=== PATIENT | female | born 1940 | race Caucasian/White ===

== ENCOUNTER 2017-12-10 21:31 | Emergency (ER) | payer OTHER ==
[~2017-12-10] VITALS: Ht 162.6 cm; Wt 63.0 kg
--- OUTSIDE RECORDS SUMMARY | 2017-12-10 21:33 | XMS REPORT | Clinical Summary ---
Author Author [facility] [facility] Address Unknown Phone Unavailable Care Team Providers Care Vegetable Cutter Name Role Phone Asked, Pcp PCP Unavailable Allergies Active Allergy Reactions Severity Noted Date Comments Codeine Hives 2017 Levofloxacin Other (See Comments) 2017 Severe Tendinitis Current Medications Prescription Sig. Disp. Refills Start End Date Status Date cefpodoxime (VANTIN) 200 Take 1 tablet (200 mg 20 tablet 0 09/20/19 09/30/19 MG tablet total) by mouth 2 (two) 18 18 times a day for 10 days. ibuprofen (ADVIL,MOTRIN) Take 1 tablet (600 mg 60 tablet 0 09/20/19 10/20/19 600 MG tablet total) by mouth every 6 18 18 (six) hours as needed for mild pain for up to 30 days. Active Problems Not on file Encounters Date Type Specialty Care Team Description 2017 Emergency Emergency Medicine Jose Ortega MD UTI ( urinary tract infection), bacterial (Primary Dx); Sprain of collateral ligament of right knee, sequela after 12/09/2016 Social History Tobacco Use Types Packs/Day Years Used Date Never Smoker Smokeless Tobacco: Never Used Alcohol Use Drinks/Week oz/Week Comments No Sex Assigned at Date Recorded Not on file Last Filed Vital Signs Vital Sign Reading Time Taken Blood Pressure 188/81 2017 2:40 AM EVENT PLANNER Pulse 79 2017 2:40 AM EVENT PL[facility]NER Temperature 35.7 C (96.2 F) 2017 2:40 AM EVENT PLANNER Respiratory Rate 18 2017 2:40 AM EVENT PLANNER Oxygen Saturation 96% 2017 2:40 AM EVENT PLANNER Inhaled Oxygen - - Concentration Weight - - Height 167.6 cm (5' 6") 2017 1:21 AM EVENT PLANNER Body Mass Index - - Plan of Treatment Health Maintenance Due Date Last Done Comments ZOSTER VACCINE 2000 PNEUMOCOCCAL 2005 POLYSACCHARIDE VACCINE AGE 65 AND OVER PNEUMOCOCCAL-13 2005 INFLUENZA VACCINE 03/30/2018 Results * XR Knee 3 Vw Right (2017 2:10 AM) Specimen Performing Laboratory [facility] [address] [place] [address] Narrative XR KNEE 3 VW RIGHT CLINICAL INDICATION:JOINT PAINKNEE COMPARISON:None. IMPRESSION: Is no acute fracture or dislocation. There is no knee joint effusion. The bones are demineralized. There is chondrocalcinosis and mild osteoarthrosis of the knee. [facility]-[id number] Procedure Note Hm Interface, Radiology Results Incoming - 2017 2:16 AM EVENT PLANNER XR KNEE 3 VW RIGHT CLINICAL INDICATION: JOINT PAIN KNEE COMPARISON: None. IMPRESSION: Is no acute fracture or dislocation. There is no knee joint effusion. The bones are demineralized. There is chondrocalcinosis and mild osteoarthrosis of the knee. [facility]-[id number] * Urinalysis (2017 1:28 AM) Component Value Ref Range Glucose, UA Trace (A) Negative Bilirubin, UA Strong Pos (A) Negative Ketones, UA 2+ (A) Negative Specific gravity, UA =<1.005 1.001 - 1.035 Blood, UA Large (A) Negative pH, UA 8.5 5.0 - 8.5 Protein, UA 3+ (A) Negative Urobilinogen, UA 4.0 (A) <2.0 Nitrite, UA Negative Negative Leukocyte esterase, UA Large (A) Negative Color, UA Red Appearance, UA Cloudy Specimen Performing Laboratory Urine [facility], [address] [address] * Gram stain (2017 1:28 AM) Component Value Ref Range Gram stain result Moderate WBC's No organisms seen Comment: Specimen Information Specimen Source: Urine Specimen Site: Urine, clean catch Specimen Performing Laboratory Urine - Urine, clean [facility] catch [address] [place] [address] * Urine culture (2017 1:28 AM) Component Value Ref Range Urine culture isolate Gram negative rods 10-2 cfu/ml (A) Comment: Specimen Information Specimen Source: Urine Specimen Site: Urine, clean catch Specimen Performing Laboratory Urine - Urine, clean [facility]OM[facility] catch [address] [place] [address] after 12/09/2016 Insurance Payer Benefit Subscriber ID Type Phone Address Plan / Group [employer]HC MEDICARE [employer] xxxxxxxxx [place] [address]
[2017-12-10 22:13] VITALS: BP 185/84
== END 2017-12-10 22:10 | disposition home or self-care (01) ==
LOC: FSED 21:31
DX: R30.0 Dysuria (principal); N30.91 Cystitis, unspecified with hematuria; I10 Essential (primary) hypertension
CPT/HCPCS: 81003; 99282

== ENCOUNTER 2018-05-07 07:04 | Emergency (ER) | payer MEDICARE, OTHER ==
[~2018-05-07] VITALS: Ht 162.6 cm; Wt 65.8 kg
[2018-05-07] MEDS ORDERED: MORPHINE SULFATE INJ 4 MG/ML INJ IM ONE (07:30)
[2018-05-07 08:33] VITALS: BP 180/80
== END 2018-05-07 08:00 | disposition home or self-care (01) ==
LOC: FSED 07:04
DX: M54.42 Lumbago with sciatica, left side (principal); S39.012A Strain of muscle, fascia and tendon of lower back, initial encounter
CPT/HCPCS: 99282; J2270

== ENCOUNTER 2019-01-29 13:05 | Emergency (ER) | payer MEDICARE ==
[~2019-01-29] VITALS: Ht 162.6 cm; Wt 68.9 kg
--- OUTSIDE RECORDS SUMMARY | 2019-01-29 13:08 | XMS REPORT | Clinical Summary ---
Author Author [facility] Address Unknown Phone Unavailable Care Team Providers Care Retail Shift Leader Name Role Phone Asked, No Pcp PCP Unavailable Allergies Comments Active Allergy Reactions Severity Noted Date Codeine Hives 2017 Severe Tendinitis Levofloxacin Other (See 2017 Comments) Medications No known medications Active Problems Problem Noted Date Combined forms of age-related cataract of both eyes 06/08/2018 Encounters Care Team Description Date Type Specialty Center, Ophthalmology - Clinical Care 06/28/2018 Telephone Ophthalmology DelarosaAngella MD Combined forms of age-related cataract of both eyes (Primary Dx) 06/08/2018 Office Visit Ophthalmology after 01/28/2018 Social History Date Tobacco Use Types Packs/Day Years Used Never Smoker Smokeless Tobacco: Never Used Alcohol Use Drinks/Week oz/Week Comments No Sex Assigned at Date Recorded Not on file Industry Job Start Date Occupation Not on file Not on file Not on file Travel End Travel History Travel Start No recent travel history available. Last Filed Vital Signs Not on file Plan of Treatment Health Maintenance Due Date Last Done Comments SHINGLES VACCINES (#1) 1990 65+ PNEUMOCOCCAL VACCINE 2005 (1 of 2 - PCV13) PNEUMOCOCCAL 2005 POLYSACCHARIDE VACCINE AGE 65 AND OVER INFLUENZA VACCINE 03/30/2019 Results Not on fileafter 01/28/2018 Insurance Type Payer Benefit Subscriber ID Effective Phone Address Plan / Dates Group HMO [facility] MEDICARE [facility] xxxxxxxxx 2017-P MEDICARE resent HMO/PPO Advance Directives Patient has advance care planning documents on file. For more information, juani khan contact: Emil Spear [address] [place] [address]
--- OUTSIDE RECORDS SUMMARY | 2019-01-29 13:09 | XMS REPORT ---
Author Author Anita Rob [facility] [employer] Address Unknown Phone Unavailable Care Team Providers Care Manager Cosmetic Name Role Phone Anita Rob Unavailable Encounters Encounter Location Date echo results [facility] February 28, 2016 RF [facility] Aug 27, 2016 RF [facility] Aug 27, 2016 REFILL [facility] Oct 09, 2016 uti [facility] February 06, 2016 Unknown [facility] February 07, 2016 ECHO-IZAIAH [facility] February 07, 2016 Problems Problem Type Condition ICD-9 Code Onset Dates Condition Status Problem Achilles tendonitis M76.60 Active Assessment Essential hypertension I10 Active Problem Vitamin D deficiency E55.9 Active Problem Essential hypertension I10 Active Problem Rosacea L71.9 Active Problem Prediabetes R73.09 Active Problem Hx of deep venous thrombosis Z86.718 Active Problem Hyperlipidemia, unspecified E78.5 Active Problem Osteoarthrosis M19.90 Active Medications Medication Code System Code Instructions Start Date End Date Status D[facility] [address]-95 20 mg by mouth once a day (MUST SEE DOCTOR BEFORE NEXT REFILL) Active 1 tablet Social History Social History Element Qualifiers Date 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 . with spouse and brother February 28, 2016 Last Colonoscopy: . 20 years ago February 28, 2016 children . 3 February 28, 2016 Flu Vaccine: . 2014February 28, 2016 Tobacco Use: . Are you a: never smoker February 28, 2016 Use of recreational / street drugs? . Answer: No February 28, 2016 Ethnicity . Status , Is djiboutian your primary language? Yes February 28, 2016 Last Bone Density: . 2013February 28, 2016 Marital Status: . February 28, 2016 Caffeine intake? . Status: Yes, What type: Coffee February 28, 2016 Do you exercise? . Answer: Yes, Type: walking February 28, 2016 Depression Screening: . negative February 28, 2016 Fall Risk: . none in the past year February 28, 2016 Do you drink alcohol? . Status: No February 28, 2016 Summary Purpose eClinicalWorks Submission
--- OUTSIDE RECORDS SUMMARY | 2019-01-29 13:09 | XMS REPORT ---
Author Author Joyce Gomez [employer] Address Unknown Phone Unavailable Care Team Providers Care Lumber Tripper Name Role Phone Joyce Gomez Unavailable Allergies, Adverse Reactions, Alerts Substance Reaction Event Type shellfish Info Not Available Drug Allergy Iodine Info Not Available Drug Allergy Codeine Sulfate Info Not Available Drug Allergy Encounters Encounter Location Date uti [facility] February 06, 2016 Unknown [facility] February 07, 2016 Problems Problem Type Condition ICD-9 Code Onset Dates Condition Status Assessment Prediabetes R73.09 Active Problem Achilles tendonitis M76.60 Active Assessment Essential hypertension I10 Active Problem Vitamin D deficiency E55.9 Active Problem Essential hypertension I10 Active Problem Rosacea L71.9 Active Problem Prediabetes R73.09 Active Problem Hx of deep venous thrombosis Z86.718 Active Problem Hyperlipidemia, unspecified E78.5 Active Problem Osteoarthrosis M19.90 Active Assessment Abnormal EKG R94.31 Active Assessment Urinary tract infection N39.0 Active Assessment Frequent urination R35.0 Active Assessment Hyperlipidemia, unspecified E78.5 Active Medications Medication Code System Code Instructions Start Date End Date Status Dosage Bactrim DS [facility] [address]-36 800-160 MG Orally twice a day February 06, 2016 February 11, 2016 Active 1 tablet Zyrtec Allergy [facility] [address]-85 10 MG Orally Once a day Active 1 tablet Naproxen Sodium [facility] [address]-59 550 MG Orally Twice a day sparingly February 01, 2014 Active 1 tablet Pravastatin Sodium [facility] [address]-46 40 mg Orally Once a day Active 1 tablet Lisinopril [facility] [address]-25 20 mg by mouth once a day Active 1 tablet Social History Social History Element Qualifiers Date 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 . with spouse and brother February 06, 2016 Last Colonoscopy: . 20 years ago February 06, 2016 children . 3 February 06, 2016 Flu Vaccine: . 2014February 06, 2016 Tobacco Use: . Are you a: never smoker February 06, 2016 Use of recreational / street drugs? . Answer: No February 06, 2016 Ethnicity . Status , Is yoruba your primary language? Yes February 06, 2016 Last Bone Density: . 2013February 06, 2016 Marital Status: . February 06, 2016 Caffeine intake? . Status: Yes, What type: Coffee February 06, 2016 Do you exercise? . Answer: Yes, Type: walking February 06, 2016 Depression Screening: . negative February 06, 2016 Fall Risk: . none in the past year February 06, 2016 Do you drink alcohol? . Status: No February 06, 2016 Vital Signs Date/Time: February 06, 2016 Weight 137 lbs Height 64 in Temperature 97.8 F Cardiac Monitoring Heart Rate 76 /min Blood Pressure Diastolic 70 mm Hg Blood Pressure Systolic 156 mm Hg Results URINE AUTO W/O SCOPE Summary Purpose eClinicalWorks Submission
--- OUTSIDE RECORDS SUMMARY | 2019-01-29 13:09 | XMS REPORT | Summary of Care ---
Author Organization Unknown Address Unknown Phone Unavailable Encounter [facility] Luisito(NINOSKA) [id number] Date(s): 01/18/14 - 01/18/14 [facility] [address] [place], [place] [address] - [facility] Discharge Diagnosis: Wrist sprain Discharge Disposition: Home Physician Attending: Tyrel Roth MD Physician_Referring: Vitro Sommers Reason for Visit LEFT ARM PAIN Vital Signs Most recent to 1 2 oldest [Reference Range]: Height 162.56 cm (01/18/14 6:36 AM) Temperature Oral 98.3 DegF [96.4-99.1 DegF] (01/18/14 6:36 AM) Systolic Blood 148 mmHg 153 mmHg Pressure [90-140 *HI* *HI* mmHg] (01/18/14 8:55 AM) (01/18/14 6:36 AM) Diastolic Blood 77 mmHg 80 mmHg Pressure [60-90 (01/18/14 8:55 AM) (01/18/14 6:36 AM) mmHg] Respiratory Rate 18 BRMIN 20 BRMIN [14-20 BRMIN] (01/18/14 8:55 AM) (01/18/14 6:36 AM) Peripheral Pulse 78 bpm 77 bpm Rate [60-100 bpm] (01/18/14 8:55 AM) (01/18/14 6:36 AM) Weight 65.909 kg (01/18/14 6:36 AM) Body Mass Index 24.94 m2 (01/18/14 6:36 AM) Problem List Condition Effective Dates Status Health Status Informant Achilles Resolved tendinitis(Confirmed ) Hyperlipidemia(Confi Resolved rmed) Hypertension(Confirm Resolved ed) Allergies, Adverse Reactions, Alerts Substance Reaction Severity Status codeine Active Medications lisinopril 20 mg oral tablet 20 mg=1 tab, PO, Daily, # 30 tab, 0 Refill(s) Start Date: 01/18/14 Status: Ordered naproxen 500 mg oral tablet 500 mg=1 tab, PO, BID, Pain, # 30 tab, 0 Refill(s) Start Date: 01/18/14 Status: Ordered pravastatin 40 mg oral tablet 40 mg=1 tab, PO, Bedtime, # 30 tab, 0 Refill(s) Start Date: 01/18/14 Status: Ordered Ultram 50 mg oral tablet 50 mg=1 tab, PO, Q4H, pain, # 20 tab, 0 Refill(s) Start Date: 01/18/14 Status: Ordered Medications Administered During Your Visit No data available for this section Immunizations No data available for this section Social History Social History Type Response Smoking Status Never smoker, Exposure to Tobacco Smoke None, Cigarette Smoking Last 365 Days No, Reg Smoking Cessation Counseling No
--- OUTSIDE RECORDS SUMMARY | 2019-01-29 13:09 | XMS REPORT | CCD ---
Author Author Auto Generated Organization [facility] Address Unknown Phone Unavailable Care Team Providers Care Billing Supervisor Name Role Phone Jarred Plunkett CP Allergies, Adverse Reactions, Alerts Substance Reaction Status codeine Active Problem List Condition Effective Dates Status Achilles tendinitis Resolved Hyperlipidemia Resolved Hypertension Resolved Medications Medication Instructions Start Date End Date Status Macrobid 100 mg oral 100 mg, 1 cap, PO, BID, 20 cap, 03/18/2013 03/28/2013 Ordered capsule Substitution Allowed, CAP Vital Signs Most recent to oldest [Reference Range]: 1 Height 162.56 cm (03/18/2013 11:20:00) Weight 63.636 kg (03/18/2013 11:20:00) Results URINALYSIS Most recent to oldest [Reference Range]: 1 UA Turbidity [Clear] Clear (03/18/2013 11:35:01) UA Color Ltyellow *NA* (03/18/2013 11:35:01) UA pH [5.0-8.0] 5.0 (03/18/2013 11:35:01) UA Spec Grav [<=1.030] 1.008 (03/18/2013 11:35:01) UA Glucose [Negative mg/dL] Negative mg/dL *NA* (03/18/2013 11:35:01) UA Blood [Negative] Small *ABN* (03/18/2013 11:35:01) UA Ketones [Negative mg/dL] Negative mg/dL *NA* (03/18/2013 11:35:01) UA Protein [Negative mg/dL] Negative mg/dL (03/18/2013 11:35:01) UA Urobilinogen [0.1-1.0 mg/dL] <=1.0 mg/dL *NA* (03/18/2013 11:35:01) UA Bili [Negative] Negative *NA* (03/18/2013 11:35:01) UA Leuk Est [Negative] Negative (03/18/2013 11:35:01) UA Nitrite [Negative] Negative (03/18/2013 11:35:01) UA WBC [0-5 /HPF] <1 /HPF (03/18/2013 11:35:01) UA RBC [0-2 /HPF] <1 /HPF (03/18/2013 11:35:01) UA Bacteria [None Seen /HPF] Occasional /HPF *NA* (03/18/2013 11:35:01) UA Sq Epi [Few /LPF] Occasional /LPF *NA* (03/18/2013 11:35:01)
--- OUTSIDE RECORDS SUMMARY | 2019-01-29 13:09 | XMS REPORT ---
Author Author Joyce Gomez eClinicalWorks Address Unknown Phone Unavailable Care Team Providers Care Electric Furnace Operator Name Role Phone Joyce Gomez Unavailable Encounters Encounter Location Date uti [facility] February 06, 2016 Unknown [facility] February 07, 2016 ECHO-JOYCE [facility] February 07, 2016 Problems Problem Type Condition ICD-9 Code Onset Dates Condition Status Problem Achilles tendonitis M76.60 Active Assessment Abnormal EKG R94.31 Active Problem Vitamin D deficiency E55.9 Active Problem Essential hypertension I10 Active Problem Rosacea L71.9 Active Problem Prediabetes R73.09 Active Problem Hx of deep venous thrombosis Z86.718 Active Problem Hyperlipidemia, unspecified E78.5 Active Problem Osteoarthrosis M19.90 Active Medications Medication Code System Code Instructions Start Date End Date Status Dosage Bactrim DS [facility] [address]-04 800-160 MG Orally twice a day February 06, 2016 February 11, 2016 Active 1 tablet [facility] [address]-19 40 mg Orally Once a day Active 1 tablet Naproxen Sodium [facility] [address]-07 550 MG Orally Twice a day sparingly February 01, 2014 Active 1 tablet [facility]inopril [facility] [address]-39 20 mg by mouth once a day Active 1 tablet Zyrtec Allergy [facility] [address]-80 10 MG Orally Once a day Active 1 tablet Social History Social History Element Qualifiers Date 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 . with spouse and brother February 06, 2016 Last Colonoscopy: . 20 years ago February 06, 2016 children . 3 February 06, 2016 Flu Vaccine: . 2015 February 06, 2016 Tobacco Use: . Are you a: never smoker February 06, 2016 Use of recreational / street drugs? . Answer: No February 06, 2016 Ethnicity . Status , Is icelandic your primary language? Yes February 06, 2016 [...] alcohol? . Status: No February 06, 2016 Summary Purpose eClinicalWorks Submission
--- OUTSIDE RECORDS SUMMARY | 2019-01-29 13:09 | XMS REPORT ---
Author Author Anita Rob [facility] eClinicalWorks Address Unknown Phone Unavailable Care Team Providers Care Deli Department Manager Name Role Phone Anita Rob Unavailable Encounters Encounter Location Date uti [facility] February 06, 2016 Unknown [facility] February 07, 2016 Problems Problem Type Condition ICD-9 Code Onset Dates Condition Status Problem Achilles tendonitis M76.60 Active Assessment Pericardial effusion I31.3 Active Problem Vitamin D deficiency E55.9 Active Problem Essential hypertension I10 Active Problem Rosacea L71.9 Active Problem Prediabetes R73.09 Active Problem Hx of deep venous thrombosis Z86.718 Active Problem Hyperlipidemia, unspecified E78.5 Active Problem Osteoarthrosis M19.90 Active Social History Social History Element Qualifiers Date [...] 06, 2016 Ethnicity . Status , Is belizean your primary language? Yes February 06, 2016 [...]
--- OUTSIDE RECORDS SUMMARY | 2019-01-29 13:09 | XMS REPORT | Continuity of Care Document ---
Author Author [facility] Interface Address Unknown Phone Unavailable Problems Problem Status Onset Date Classification Date Reported Comments Source M17.11 Active 09/07/2018 [facility] [place] S/P RT KNEE Active 09/06/2018 [facility] [place] RT KNEE PAIN Active 09/06/2018 [facility] [place] DX: I42.9/ I65.23 Active 08/18/2018 [facility] TOTAL KNEE Active 08/16/2018 [facility] Discharge Diagnosis: Wrist sprain 01/18/2014 01/21/2014 [facility] LEFT ARM PAIN Active 01/18/2014 [facility] UTI Active 03/18/2013 [facility] Achilles tendinitis Resolved Problem 03/20/2013 [facility] Hyperlipidemia Resolved Problem 03/20/2013 [facility] Hypertension Resolved Problem 03/20/2013 [facility] Achilles tendinitis Resolved Problem 12/08/2018 [facility] [place] DVT (<span ID="[id number]">Confirmed</span>) Resolved Problem 12/08/2018 [facility] [place] Hyperlipidemia Resolved Problem 12/08/2018 [facility] [place] Hypertension Active Problem 12/08/2018 [facility] [place] Achilles tendonitis Active Problem 10/10/2016 [facility] Hyperlipidemia, unspecified Active Problem 10/10/2016 [facility] Vitamin D deficiency Active Problem 10/10/2016 [facility] Essential hypertension Active Diagnosis 10/10/2016 [facility] Rosacea Active Problem 10/10/2016 [facility] Prediabetes Active Problem 10/10/2016 [facility] Hx of deep venous thrombosis Active Problem 10/10/2016 [facility] Osteoarthrosis Active Problem 10/10/2016 [facility] Pericardial effusion Active Diagnosis 03/04/2016 [facility] Abnormal EKG Active Diagnosis 02/11/2016 [facility] Urinary tract infection Active Diagnosis 02/08/[address] [facility] Frequent urination Active Diagnosis 02/08/[address] [facility] RENA positive Active Diagnosis 03/04/[address] [facility] Medications Medication Details Route Status Patient Instructions Ordering Provider Order Date Source Bactrim DS 1 tablet Orally Active 800-160 MG Orally twice a day Patricia 02/06/[address] [facility] Naproxen Sodium 1 tablet Orally Active 550 MG Orally as needed (prn) Patricia 02/01/[address] [facility] tramadol hydrochloride 50 MG Oral Tablet [Ultram] 50 mg=1 tab, PO, Q4H, pain, # 20 tab, 0 Refill(s) Active 01/18/2014 [facility] naproxen 500 mg oral tablet 500 mg=1 tab, PO, BID, Pain, # 30 tab, 0 Refill(s) Active 01/18/2014 [facility] lisinopril 20 mg oral tablet 20 mg=1 tab, PO, Daily, # 30 tab, 0 Refill(s) Active 01/18/2014 [facility] pravastatin 40 mg oral tablet 40 mg=1 tab, PO, Bedtime, # 30 tab, 0 Refill(s) Active 01/18/2014 [facility] Macrobid 100 mg oral capsule 100 mg, 1 cap, PO, BID, 20 cap, Substitution Allowed, CAP PO Active Blue 03/18/2013 [facility] Pravastatin Sodium 1 tablet Orally Active 40 MG Orally Once a day (MUST SEE DOCTOR BEFORE NEXT REFILL) Patricia [facility] Lisinopril 1 tablet by mouth Active 20 mg by mouth once a day (MUST SEE DOCTOR BEFORE NEXT REFILL) [facility] Zyrtec Allergy 1 tablet Orally Active 10 MG Orally Once a day Patricia [facility] Allergies, Adverse Reactions, Alerts Substance Category Reaction Severity Reaction type Status Date Reported Comments Source shellfish Adverse Reaction Info Not Available Adverse Reaction Active 02/28/[address] [facility] Codeine Sulfate Adverse Reaction Info Not Available Adverse Reaction Active 02/28/[address] [facility] Iodine anaphylaxis Severe Allergy to Substance Active 12/10/2017 [facility] Codeine Unknown Allergy to Substance Active 12/10/2017 [facility] codeine Assertion Drug allergy Active [facility] iodine Assertion Drug allergy Active [facility] Immunizations Immunization Date Given Site Status Last Updated Comments Source Results Order Name Results Value Reference Range Date Interpretation Comments Source Knee 1-2 Views unilateral DX Knee 1-2 Views unilateral DX Patient Name: ROBERTO NIETO : 1940; Age: 77 years y/o Female MR: [id number] * RIGHT KNEE, postoperative 2 views HISTORY: Right knee arthritis, status post right knee arthroplasty. Technique: Postoperative portable frontal and lateral radiographs of the right knee were obtained. FINDINGS: The right total knee prosthesis is in good position. There is no evidence of unexpected fracture or other complication. There is postoperative soft tissue gas. There are anterior surgical skin ysabel. IMPRESSION: 1. Status post right knee arthroplasty. The prosthesis is in good position without evidence of complication. SL: [id number] 09/06/2018 - - Read by: Arvin Chin MD Dictated Date/time: 09/06/18 10:21 Electronically Signed by: Arvin Chin MD 09/06/18 10:21 FINAL REPORT [facility] Chest 2 views DX Chest 2 views DX Clinical Indication: Coughing - pre-op Comparison: None FINDINGS: The PA and lateral chest radiographs shows normal lung volumes without interstitial or airspace opacities, pleural effusions or pneumothorax. The heart size and pulmonary vasculature are normal. The trachea is midline. There are no clinically significant osseous abnormalities noted. IMPRESSION: No chest radiographic evidence of acute cardiopulmonary disease. SL: [id number] 09/01/2018 - - Read by: Yao Conner MD Dictated Date/time: 09/01/18 14:25 Electronically Signed by: Yao Conner MD 09/01/18 14:25 FINAL REPORT [facility] Carotid artery Doppler bilat US Carotid artery Doppler bilat US Clinical Indication: - I65.23 Occlusion and stenosis of bilateral carotid arteries; Comparison: None TECHNIQUE: Rivas-scale, color Doppler and spectral Doppler of the carotid arteries was performed. Any reported ICA stenoses indirectly reference the distal internal carotid diameter as the denominator for the stenosis measurement, utilizing consensus panel criteria. FINDINGS: RIGHT: No significant plaque ICA PSV 80 cm/sec CCA PSV 86 cm/sec ICA/CCA ratio 0.93 Vertebral flow is antegrade. External carotid artery is patent. LEFT: No significant plaque ICA PSV 71 cm/sec CCA PSV 129 cm/sec ICA/CCA ratio 0.55 Vertebral flow is antegrade. External carotid artery is patent. IMPRESSION: 1. RIGHT: ICA stenosis <50 % by velocity criteria. 2. LEFT: ICA stenosis <50 % by velocity criteria. Consensus panel Doppler US criteria for diagnosis of ICA stenosis: Stenosis (%) ICA PSV (cm/sec) ICA/CCA ratio <50 <125 <2.0 50-69 125-230 2.0-4.0 >70 but less than >230 >4.0 near occlusion Near occlusion High, low, or Variable undetectable SL: WR4-M 08/19/2018 - - Read by: Yao Conner MD Dictated Date/time: 08/19/18 15:15 Electronically Signed by: Yao Conner MD 08/19/18 15:16 FINAL REPORT [facility] Wrist complete ( min.3 views) Wrist complete ( min.3 views) PORTABLE LEFT WRIST, 3 VIEWS. INDICATION: Pain, sprain. Osteopenia is noted. No fracture is evident. There are calcifications in the region of the triangular fibrocartilage. Intercarpal articulations are not remarkable. Degenerative changes involve the first carpometacarpal articulation. SL: 12 01/18/2014 - - Read by: Adrian Arteaga MD Dictated Date/time: 01/18/14 08:10 Electronically Signed by: Adrian Arteaga 01/18/14 08:12 FINAL REPORT [facility] URINALYSIS UA Urobilinogen <=1.0 mg/dL
*NA*
(03/18/2013 11:35:01) <sup> </sup> 0.1 - 1.0 03/18/2013 [facility] URINALYSIS UA Color Ltyellow 03/18/2013 [facility] URINALYSIS UA Bacteria Occasional /HPF *NA* (03/18/2013 11:35:01) None Seen 03/18/2013 NA [facility] URINALYSIS UA Nitrite Negative (03/18/2013 11:35:01) Negative 03/18/2013 Normal [facility] URINALYSIS UA Blood Small *ABN* (03/18/2013 11:35:01) Negative 03/18/2013 ABN [facility] URINALYSIS UA Bili Negative *NA* (03/18/2013 11:35:01) Negative 03/18/2013 [facility] URINALYSIS UA Sq Epi Occasional /LPF *NA* (03/18/2013 11:35:01) Few 03/18/2013 NA [facility] URINALYSIS UA Leuk Est Negative (03/18/2013 11:35:01) Negative 03/18/2013 Normal [facility] URINALYSIS UA RBC null 0 - 2 03/18/2013 Normal [facility] URINALYSIS UA WBC null 0 - 5 03/18/2013 Normal [facility] URINALYSIS UA Ketones Negative mg/dL *NA* (03/18/2013 11:35:01) Negative 03/18/2013 NA [facility] URINALYSIS UA Glucose Negative mg/dL *NA* (03/18/2013 11:35:01) Negative 03/18/2013 NA [facility] URINALYSIS UA Protein Negative mg/dL (03/18/2013 11:35:01) Negative 03/18/2013 Normal [facility] URINALYSIS UA pH 5.0 5.0 - 8.0 03/18/2013 Normal [facility] URINALYSIS UA Spec Grav 1.008 <=1.030 03/18/2013 Normal [facility] URINALYSIS UA Turbidity Clear (03/18/2013 11:35:01) Clear 03/18/2013 Normal [facility] Vital Signs Vital Sign Value Date Comments Source Weight 136 02/28/2016 [facility] Height 64 02/28/2016 [facility] Heart Rate 74 02/28/2016 [facility] Diastolic (mm Hg) 70 02/28/2016 [facility] Systolic (mm Hg) 150 02/28/2016 [facility] Weight 137 02/06/2016 [facility] Height 64 02/06/2016 [facility] Temperature Oral (F) 97.8 F 02/06/2016 [facility] Heart Rate 76 02/06/2016 [facility] Diastolic (mm Hg) 70 02/06/2016 [facility] Systolic (mm Hg) 156 02/06/2016 [facility] Systolic (mm Hg) 148 01/18/2014 [facility] Respitory Rate 18 01/18/2014 [facility] Heart Rate 78 01/18/2014 [facility] Diastolic (mm Hg) 77 01/18/2014 [facility] BMI Calculated 24.94 01/18/2014 [facility] Weight 65.909 01/18/2014 [facility] Height 162.56 cm 01/18/2014 [facility] Respitory Rate 20 01/18/2014 [facility] Heart Rate 77 01/18/2014 [facility] Systolic (mm Hg) 153 01/18/2014 [facility] Diastolic (mm Hg) 80 01/18/2014 [facility] Temperature Oral (F) 98.3 F 01/18/2014 [facility] Weight 63.636 03/18/2013 [facility] Height 162.56 cm 03/18/2013 [facility] Encounters Location Location Details Encounter Type Encounter Number Reason For Visit Attending Provider ADM Date DC Date Status Source [facility] Emergency [id number] GORDON BLUE 03/18/2013 03/18/2013 Active [facility] [id number] Tyrel Roth 01/18/2014 01/18/2014 [facility] [place] [id number] 02/06/2016 02/06/2016 [facility] uti [id number] 02/06/2016 02/06/2016 [facility] uti [id number] 02/06/2016 02/06/2016 [facility] uti [id number] 02/06/2016 02/06/2016 [facility] ut[place] [id number] 02/06/2016 02/06/2016 [facility] uti [id number] 02/06/2016 02/06/2016 [facility] uti [id number] 02/06/2016 02/06/2016 [facility] NICA [id number] 02/07/2016 02/07/2016 [facility] NICA [id number] 02/07/2016 02/07/2016 [facility] NICA [id number] 02/07/2016 02/07/2016 [facility] NICA [id number] 02/07/2016 02/07/2016 [facility] NICA [id number] 02/07/2016 02/07/2016 [facility] Unknown [id number] 02/07/2016 02/07/2016 [facility] Unknown [id number] 02/07/2016 02/07/2016 [facility] Unknown [id number] 02/07/2016 02/07/2016 [facility] Unknown [id number] 02/07/2016 02/07/2016 [facility] Unknown [id number] 02/07/2016 02/07/2016 [facility] Unknown [id number] 02/07/2016 02/07/2016 [facility] Unknown [id number] 02/07/2016 02/07/[address] [facility] echo results [id number] 02/28/2016 02/28/[address] [facility] echo results [id number] 02/28/2016 02/28/[address] [facility] echo results [id number] 02/28/2016 02/28/[address] [facility] echo results [id number] 02/28/2016 02/28/[address] [facility] RF [id number] 08/27/2016 08/27/[address] [facility] RF [id number] 08/27/2016 08/27/[address] [facility] [id number] 08/27/2016 08/27/2016 [facility] RF [id number] 08/27/2016 08/27/2016 [facility] [id number] 08/27/2016 08/27/2016 [facility] [id number] 08/27/2016 08/27/2016 [facility] REFILL [id number] 10/09/2016 10/09/2016 [facility] Departed Emergency Room [id number] TANK FRANCISCO MD 12/10/2017 12/10/2017 [facility] Dep[facility] Room [id number] YOLIS HERRON MD 05/07/2018 05/07/2018 [facility] OP Therapy Patients [id number] Raz Whiteside 09/07/2018 10/07/[address] [facility] OP Therapy Patients [id number] Raz Whiteside 10/07/2018 11/07/[address] [facility] OP Therapy Patients [id number] Raz Whiteside 11/07/2018 12/07/[address] [facility] Procedures Procedure Code Date Perfomer Comments Source Hysterectomy [id number] 08/30/[address] [facility] Tonsillectomy and adenoidectomy [id number] 08/30/[address] [facility] Cholecystectomy [id number] [facility] Operation [id number] [facility]
--- OUTSIDE RECORDS SUMMARY | 2019-01-29 13:09 | XMS REPORT | Summary of Care ---
Author Author [facility] Address Unknown Phone Unavailable Encounter HQ Keith_kaveh(FIN) [id number] Date(s): 10/07/18 - 11/06/18 [facility] Discharge Disposition: Home or Self Care Attending Physician: Raz Whiteside Vital Signs No data available for this section Problem List Condition Effective Dates Status Health Status Informant Achilles Resolved tendinitis(Confirmed ) DVT (deep venous Resolved thrombosis)(Confirme d) Hyperlipidemia(Confi Resolved rmed) Hypertension(Confirm Active ed) Allergies, Adverse Reactions, Alerts Substance Reaction Severity Status codeine Active iodine Active Medications No data available for this section Results No data available for this section Immunizations No data available for this section Procedures Procedure Date Related Diagnosis Body Site Status Hysterectomy 1972 Completed Tonsillectomy and adenoidectomy 1950 Completed Cholecystectomy Completed Operation Completed Operation Completed Social History Social History Type Response Substance Abuse Use: None. Alcohol Never Smoking Status Never smoker; Exposure to Tobacco Smoke None; Cigarette Smoking Last 365 Days No; Reg Smoking Cessation Counseling No entered on: 09/01/18 Assessment and Plan No data available for this section
--- OUTSIDE RECORDS SUMMARY | 2019-01-29 13:09 | XMS REPORT ---
Author Author Joyce Gomez [employer] Address Unknown Phone Unavailable Care Team Providers Care Administrative Director Name Role Phone Joyce Gomez CP Unavailable Encounters Encounter Location Date echo results [facility] February 28, 2016 RF [facility] Aug 27, 2016 [facility] Aug 27, 2016 uti [facility] February 06, 2016 Unknown [facility] February 07, 2016 ECHO-JOYCE [facility] February 07, 2016 [...] Start Date End Date Status Dosage Lisinopril MEDISPAN [address]-09 20 mg by mouth once a day [...] 28, 2016 Ethnicity . Status , Is kiswahili your primary language? Yes February 28, 2016 [...]
--- OUTSIDE RECORDS SUMMARY | 2019-01-29 13:09 | XMS REPORT ---
Author Author Joyce Gomez [employer] Address Unknown Phone Unavailable Care Team Providers Care Telecommunications Sales Representative Name Role Phone Joyce Gomez CP Unavailable Encounters Encounter Location Date echo results [facility] February 28, 2016 RF [facility] Aug 27, 2016 RF [facility] Aug 27, 2016 uti [facility] February 06, 2016 Unknown [facility] February 07, 2016 ECHO-JOYCE [facility] February 07, 2016 Problems Problem Type Condition ICD-9 Code Onset Dates Condition Status Problem Achilles tendonitis M76.60 Active Assessment Hyperlipidemia, unspecified E78.5 Active Problem Vitamin D deficiency E55.9 Active Problem Essential hypertension I10 Active Problem Rosacea L71.9 Active Problem Prediabetes R73.09 Active Problem Hx of deep venous thrombosis Z86.718 Active Problem Hyperlipidemia, unspecified E78.5 Active Problem Osteoarthrosis M19.90 Active Medications Medication Code System Code Instructions Start Date End Date Status Dosage Pravastatin Sodium MEDISPAN [address]-81 40 MG Orally Once a day (MUST [...] 28, 2016 Ethnicity . Status , Is macedonian your primary language? Yes February 28, 2016 [...]
--- OUTSIDE RECORDS SUMMARY | 2019-01-29 13:09 | XMS REPORT | Summary of Care ---
Author Author [facility] Address Unknown Phone Unavailable Encounter [facility] Keith_kaveh(FIN) [id number] Date(s): 09/07/18 - 10/06/18 [facility] Discharge Disposition: Home or Self Care Attending [...]
--- OUTSIDE RECORDS SUMMARY | 2019-01-29 13:09 | XMS REPORT ---
Author Author Joyce Gomez e[employer] Address Unknown Phone Unavailable Care Team Providers Care Press Maintainer Name Role Phone Joyce Gomez Unavailable Allergies, Adverse Reactions, Alerts Substance Reaction Event Type shellfish Info Not Available Drug Allergy Iodine Info Not Available Drug Allergy Codeine Sulfate Info Not Available Drug Allergy Encounters Encounter Location Date echo results [facility] February 28, 2016 [place] [facility] February 06, 2016 Unknown [facility] February 07, 2016 [facility] February 07, 2016 Problems Problem Type Condition ICD-9 Code Onset Dates Condition Status Assessment RENA positive R76.8 Active Problem Achilles tendonitis M76.60 Active Assessment Osteoarthrosis M19.90 Active Assessment Pericardial effusion I31.3 Active Problem Vitamin D deficiency E55.9 Active Problem Essential hypertension I10 Active Problem Rosacea L71.9 Active Problem Prediabetes R73.09 Active Problem Hx of deep venous thrombosis Z86.718 Active Problem Hyperlipidemia, unspecified E78.5 Active Problem Osteoarthrosis M19.90 Active Medications Medication Code System Code Instructions Start Date End Date Status Dosage [facility] [address]-11 20 mg by mouth once a day Active 1 tablet Pravastatin [facility] [address]-60 40 mg Orally Once a day Active 1 tablet [facility] [address]-40 10 MG Orally Once a day Active 1 tablet [facility] [address]-28 550 MG Orally as needed (prn) February 01, 2014 March 29, 2016 Active 1 tablet Social History Social History Element Qualifiers Date 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 . with spouse and brother February 28, 2016 Last Colonoscopy: . 20 years ago February 28, 2016 children . 3 February 28, 2016 Flu Vaccine: . 2015 February 28, 2016 Tobacco Use: . Are you a: never smoker February 28, 2016 Use of recreational / street drugs? . Answer: No February 28, 2016 Ethnicity . Status , Is nauruan your primary language? Yes February 28, 2016 Last Bone Density: . 2014 February 28, 2016 Marital Status: . February 28, 2016 Caffeine intake? . Status: Yes, What type: Coffee February 28, 2016 Do you exercise? . Answer: Yes, Type: walking February 28, 2016 Depression Screening: . negative February 28, 2016 Fall Risk: . none in the past year February 28, 2016 Do you drink alcohol? . Status: No February 28, 2016 Family history Qualifier Description Comment Date Reported Maternal Grandmother Comment not available February 28, 2016 Paternal Grandmother Comment not available February 28, 2016 Siblings alive congenital heart disease, lymphoma February 28, 2016 Maternal Grandfather Comment not available February 28, 2016 Children alive Comment not available February 28, 2016 Father Comment not available February 28, 2016 Paternal Grandfather Comment not available February 28, 2016 Mother Comment not available February 28, 2016 Other: Comment not available February 28, 2016 Vital Signs Date/Time: February 28, 2016 Weight 136 lbs Height 64 in Cardiac Monitoring Heart Rate 74 /min Blood Pressure Diastolic 70 mm Hg Blood Pressure Systolic 150 mm Hg Summary Purpose eClinicalWorks Submission
--- OUTSIDE RECORDS SUMMARY | 2019-01-29 13:09 | XMS REPORT | Summary of Care ---
Author Author [facility] Address Unknown Phone Unavailable Encounter HQ Keith_[email or web address](FIN) [id number] Date(s): 11/07/18 - 12/06/18 [facility] Discharge Disposition: Home or Self Care Attending [...]
[2019-01-29 14:53] VITALS: BP 166/87
== END 2019-01-29 13:48 | disposition home or self-care (01) ==
LOC: FSED 13:05
DX: R30.0 Dysuria (principal); N30.90 Cystitis, unspecified without hematuria
CPT/HCPCS: 81003; 99283

== ENCOUNTER 2020-01-24 09:41 | Emergency (ER) | payer MEDICARE ==
[~2020-01-24] VITALS: Ht 162.6 cm; Wt 68.9 kg
--- OUTSIDE RECORDS SUMMARY | 2020-01-24 09:44 | XMS REPORT | Clinical Summary ---
Author Author [facility] Address Unknown Phone Unavailable Care Team Providers Care Manager Statistics Name Role Phone Asked, No Pcp PCP Unavailable Allergies Comments Active Allergy Reactions Severity Noted Date Codeine Hives 2017 Severe Tendinitis Levofloxacin Other (See 2017 Comments) Medications No known medications Active Problems Problem Noted Date Combined forms of age-related cataract of both eyes 06/08/2018 Social History Date Tobacco Use Types Packs/Day Years Used Never Smoker Smokeless Tobacco: Never Used Drinks/Week oz/Week Comments Alcohol Use No Sex Assigned at Date Recorded Not [...] VACCINE 2005 (1 of 2 - PCV13) INFLUENZA VACCINE 03/30/2020 Results Not on fileafter 01/23/2019 Insurance Type Payer Benefit Subscriber ID Effective Phone Address Plan / Dates Group [facility] xxxxxxxxx 2017-P MEDICARE resent HMO/PPO Advance Directives For more information, please contact: [phone] 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
--- OUTSIDE RECORDS SUMMARY | 2020-01-24 09:45 | XMS REPORT | Continuity of Care Document ---
Author Author Joan Hernandez Xuanyixia ROBERTO Bowie Organization [employer] Information Exchange Address Unknown Phone Unavailable Care Team Providers Care Television Cabinet Finisher Name Role Phone [facility] [employer] Information Exchange Unavailable Un available Problems Problem Status Onset Date Classification Date Reported Comments Source Unilateral primary osteoarthritis, right knee 10/12/2018 04/26/2019 [facility] [place] M17.11 Active 09/07/2018 [facility] [place] S/P RT KNEE Active 09/06/2018 [facility] [place] RT KNEE PAIN Active 09/06/2018 [facility] [place] Cardiomyopathy, unspecified 08/27/2018 03/09/2019 [facility] DX: I42.9/ I65.23 Active 08/18/2018 [facility] TOTAL KNEE Active 08/16/2018 [facility] Discharge Diagnosis: Wrist sprain 01/18/2014 01/21/2014 [facility] LEFT ARM PAIN Active 01/18/2014 [facility] UTI Active 0 03/18/2013 [facility] Achilles tendinitis (disorder) Resolved Problem [facility] [place] Deep venous thrombosis (disorder) Resolved Problem [facility] [place] Hyperlipidemia (disorder) Reso lved Problem [facility] [place] Hypertensive disorder, systemic arterial (disorder) Active Problem 04/26/2019 [facility] [place] Achilles tendinitis Resolved Problem 03/20/2013 [facility] Hyperlipidemia Resolved Problem 03/20/2013 [facility] Hypertension Resolved Problem 03/20/2013 [facility] Pain in right knee 04/26/2019 [facility] [place] Weakness 04/26/2019 [facility] [place] Difficulty in walking, not elsewhere classified 04/26/2019 [facility] [place] Aftercare following joint replacement surgery 04/26/2019 [facility] [place] Presence of right artificial knee joint 04/26/2019 [facility] Essential (primary) hypertension 04/26/2019 [facility] Age-related osteoporosis without current pathological fracture 04/26/2019 [facility] Occlusion and stenosis of bilateral carotid arteries 03/09/2019 [facility] Nonrheumatic aortic (valve) insufficiency 03/09/2019 [facility] Abnormal findings on diagnostic imaging of heart and coronary circulation 03/09/2019 [facility] Personal history of other venous thrombo sis and embolism 03/26/2019 [facility] Achilles tendonitis Active Problem 10/10/2016 [facility] Pericardial effusion Active Diagnosis 03/04/2016 [facility] Vitamin D deficiency Active Problem 10/10/2016 [facility] Essential hypertension Active Diagnosis 10/10/2016 [facility] Rosacea Active Problem 10/10/2016 [facility] Prediabetes Active Problem 10/10/2016 [facility] Hx of deep venous thrombosis A ctive Problem 06/2017 [facility] Hyperlipidemia, unspecified Ac tive Problem 06/2017 [facility] Osteoarthrosis Active Problem 10/10/2016 [facility] Abnormal EKG Active Diagnosis 02/11/2016 [facility] Urinary tract infection Active Diagnosis 02/08/2016 [facility] Frequent urination Active Diagnosis 02/08/2016 [facility] RENA positive Active Diagnosis 03/04/2016 [facility] Medications Medication Details Route Status Patient Instructions Ordering Provider Order Date Source Lunesta 3 mg, Route: PO, Bedti me, Dosing Weight 65, kg, Start date: 09/06/18 21:00:00 LNA, Duration: 30 day, Stop date: 10/05/18 21:00:00 LNA Inactive 09/07/2018 [facility] Cefazolin 1 gm, Route: IVPB, D rug form: INJ, Q6H, Dosing Weight 65, kg, Start date: 09/06/18 12:00:00 LNA, Duration: 3 doses or times, Stop date: 09/07/18 0:00:00 LNA, ABX Indication: Surgical Prophylaxis Inactive 09/06/2018 [facility] Flumazenil 0.2 mg, Route: IVP, PRN, Dosing Weight 65, kg, PRN Benzodiazepine Reversal, Initial dose, Start date: 09/06/18 10:40:00 LNA, Duration: 30 day, Stop date: 10/06/18 10:39:00 LNA Inactive 09/06/2018 [facility] Fentanyl 50 microgram, Route: IVP, Q5Min, Dosing Weight 65, kg, PRN Pain Score 7-10, Priority: Routine, Start date: 09/06/18 10:40:00 LNA, Duration: 2 doses or times, Stop date: Limited # of times Inactive 09/06/2018 [facility] Oxycodone 5 mg, Route: PO, Abner g form: LIQ, Q4H, Dosing Weight 65, kg, PRN Pain Score 7-10, Start date: 09/06/18 10:40:00 LNA, Duration: 30 day, Stop date: 10/06/18 10:39:00 LNA Inactive 09/06/2018 [facility] Dexamethasone 4 mg, Route: IVP , ONCE, Dosing Weight 65, kg, PRN Nausea & Vomiting, Start date: 09/06/18 10:40:00 LNA Inactive 09/06/2018 [facility] Ondansetron 4 mg, Route: IVP, ONCE, Dosing Weight 65, kg, PRN Nausea & Vomiting, Start date: 09/06/18 10:40:00 LNA Inactive 09/06/2018 [facility] Naloxone 0.4 mg, Route: IVP, Q 2MIN, Dosing Weight 65, kg, PRN Narcotic Reversal, Start date: 09/06/18 10:40:00 LNA, Duration: 8 doses or times, Stop date: Limited # of times Inactive 09/06/2018 [facility] Albuterol 0.83 MG/ML Inhalant Solution 2.49 mg, Route: NEB, Q20Min, Dosing Weight 65, kg, PRN Wheezing, Priority: STAT, Start date: 09/06/18 10:40:00 LNA, Duration: 30 day, Stop date: 10/06/18 10:39:00 LNA Inactive 09/06/2018 [facility] Enoxaparin 30 mg, Route: SUB-Q , Drug form: INJ, [id number], Dosing Weight 65, kg, Start date: 09/06/18 10:00:00 LNA, Duration: 30 day, Stop date: 10/05/18 22:00:00 LNA Inactive 09/06/2018 [facility] hydrALAZINE (ANES) Route: IV, Drug form: INJ, ONCE, Stop date: 09/06/18 9:10:00 LNA Inactive 09/06/2018 [facility] enalapril (ANES) Route: IV, Dr ug form: INJ, ONCE, Stop date: 09/06/18 9:10:00 LNA Inactive 09/06/2018 [facility] glycopyrrolate (ANES) Route: I V, Drug form: INJ, ONCE, Stop date: 09/06/18 9:10:00 LNA Inactive 09/06/2018 [facility] neostigmine (ANES) Route: IV, Drug form: INJ, ONCE, Stop date: 09/06/18 9:10:00 LNA Inactive 09/06/2018 [facility] Acetaminophen 325 MG / Hydrocodone Thu trate 7.5 MG Oral Tablet [Mccarr 7.5/325] 2 tab, Route: PO, Drug Form: TAB, Dosing Weight 65, kg, Q4H, PRN Pain Score 7-10, Start date: 09/06/18 9:01:00 LNA, Duration: 30 day, Stop date: 10/06/18 9:00:00 LNA Inactive 09/06/2018 [facility] Tylenol 100.4 F, Start date: 09/06/18 9:01:00 LNA, Duration: 30 day, Stop date: 10/06/18 9:00:00 LNA Inactive 09/06/2018 [facility] Lactated Ringers IV 1000 mL 1, 000 mL, Rate: 75 ml/hr, Infuse over: 13.3 hr, Route: IV, Dosing Weight 65 kg, Total Volume: 1,000, Start date: 09/06/18 9:01:00 LNA, Duration: 30 day, Stop date: 10/06/18 9:00:00 LNA, 1.73, m2 Inactive 09/06/2018 [facility] metoprolol (ANES) Route: IV, D rug form: INJ, ONCE, Stop date: 09/06/18 8:41:00 LNA Inactive 09/06/2018 [facility] dexamethasone (ANES) Route: IV , Drug form: INJ, ONCE, Stop date: 09/06/18 8:31:00 LNA Inactive 09/06/2018 [facility] rocuronium (ANES) Route: IV, D rug form: INJ, ONCE, Stop date: 09/06/18 8:31:00 LNA Inactive 09/06/2018 [facility] lidocaine (ANES) Route: IV, Dr ug form: INJ, ONCE, Stop date: 09/06/18 8:31:00 LNA Inactive 09/06/2018 [facility] metoclopramide (ANES) Route: I V, Drug form: INJ, ONCE, Stop date: 09/06/18 8:26:00 LNA Inactive 09/06/2018 [facility] ondansetron (ANES) Route: IV, Drug form: INJ, ONCE, Stop date: 09/06/18 8:26:00 LNA Inactive 09/06/2018 [facility] ceFAZolin (ANES) Route: IV, Dr ug form: INJ, ONCE, Stop date: 09/06/18 8:16:00 LNA Inactive 09/06/2018 [facility] propofol (ANES) Route: IV, Abner g form: INJ, ONCE, Stop date: 09/06/18 8:11:00 LNA Inactive 09/06/2018 [facility] fentaNYL (ANES) Route: IV, Abner g form: INJ, ONCE, Stop date: 09/06/18 8:11:00 LNA Inactive 09/06/2018 [facility] midazolam (ANES) Route: IV, Dr ug form: SOLN, ONCE, Stop date: 09/06/18 8:11:00 LNA Inactive 09/06/2018 [facility] Lactated Ringers Injection IV (ANES) 1000 mL Route: IV, Total Volume: 1,000, Start date: 09/06/18 7:38:00 LNA, Stop date: 09/06/18 8:38:00 LNA Inactive 09/06/2018 [facility] tramadol hydrochloride 50 MG Oral Tablet [Ultram] 50 mg = 1 tab, PO, Q12H, PRN for pain, X 30 day, # 60 tab, 0 Refill(s) No Longer Active 09/06/2018 [facility] Lactated Ringers IV 1,000 mL 1 ,000 mL, Rate: 40 ml/hr, Infuse over: 25 hr, Route: IV, Dosing Weight 65 kg, Total Volume: 1,000, Start date: 09/06/18 6:31:00 LNA, Duration: 1 day, Stop date: 09/07/18 6:30:00 LNA, 1.73, m2 Inactive 09/06/2018 [facility] ropivacaine 100 mL, Route: InF ILtration(local), Drug Form: INJ, Dosing Weight 65, kg, ONCALL, Start date: 09/06/18 6:00:00 LNA, Duration: 30 day, Stop date: 10/06/18 5:59:00 LNA Inactive 09/06/2018 [facility] gabapentin 300 mg, Route: PO, ONCALL, Dosing Weight 65, kg, Start date: 09/06/18 6:00:00 LNA, Duration: 30 day, Stop date: 10/06/18 5:59:00 LNA Inactive 09/06/2018 [facility] celecoxib 90 mL/min), Start d ate: 09/06/18 6:00:00 LNA, Duration: 30 day, Stop date: 10/06/18 5:59:00 LNA Inactive 09/06/2018 [facility] 0.3 ML Enoxaparin sodium 100 MG/ML Prefi lled Syringe [Lovenox] 30 mg, SUB-Q, BID, Complete all the inje ctions, X 14 day, # 28 inj, 0 Refill(s) No Longer Active 09/06/2018 [facility] Cephalexin 500 MG Oral Capsule [Keflex] 500 mg = 1 cap, PO, QID, X 10 day, # 40 cap, 0 Refill(s) No Longer Active 09/06/2018 [facility] ropivacaine Notes: NOT FOR IV use Ropivacaine 5 mg/mL (49.25 mL) Epinephrine 1 mg/mL (0.5 mL) Clonidine 0.1 mg/mL (0.8 mL) Ketorolac 30 mg/mL (1 mL) Normal Saline 48.45 mL Inactive 09/06/2018 [facility] Losartan PO, Daily, 0 Refill(s) Active 09/01/2018 [facility] Vitamin D2 50,000 intl units oral capsule 50,000 IntlUnit = 1 cap, PO, QWed, 0 Refill(s) Active 09/01/2018 [facility] Folic Acid Daily, 0 Refill(s) Active 09/01/2018 [facility] Vitamin B12 0 Refill(s) Active 09/01/2018 [facility] Centrum Adults oral tablet PO, Daily, 0 Refill(s) Active 09/01/2018 [facility] Bactrim DS 1 tablet Orally Active 800-160 MG Orally twice a day Patricia 02/06/2016 [facility] Naproxen Sodium 1 tablet Orally Active 550 MG Orally as needed (prn) Patricia 02/01/2014 [facility] tramadol hydrochloride 50 MG Oral Tablet [Ultram] 50 mg = 1 tab, PO, Q4H, pain, # 20 tab, 0 Refill(s) Active 01/18/2014 [facility] naproxen 500 mg oral tablet 50 0 mg = 1 tab, PO, BID, Pain, # 30 tab, 0 Refill(s) Active 01/18/2014 [facility] lisinopril 20 mg oral tablet 2 0 mg = 1 tab, PO, Daily, # 30 tab, 0 Refill(s) Active 01/18/2014 [facility] pravastatin 40 mg oral tablet 40 mg = 1 tab, PO, Bedtime, # 30 tab, 0 Refill(s) Active 01/18/2014 [facility] Macrobid 100 mg oral capsule 1 00 mg, 1 cap, PO, BID, 20 cap, Substitution Allowed, CAP PO Active [place] [facility] 03/18/2013 [facility] Pravastatin Sodium 1 tablet Orally Active 40 MG Orally Once a day (MUST SEE DOCTOR BEFORE NEXT REFILL) Patricia [facility] Lisinopril 1 tablet by mouth Active 20 mg by mouth once a d ay (MUST SEE DOCTOR BEFORE NEXT REFILL) Fletcher Carlos [facility] Zyrtec Allergy 1 tablet Orally Active 10 MG Orally Once a day Patricia [facility] Allergies, Adverse Reactions, Alerts Substance Category Reaction Severity Reaction type Status Date Reported Comments Source shellfish Adverse Reaction Info Not Available Adverse Reaction Active 02/28/2016 [facility] Iodine Adverse Reaction Info Not Available Adverse Reaction Active 02/28/2016 [facility] Codeine Sulfate Adverse Reacti on Info Not Available Adverse Reaction Active 02/28/2016 [facility] codeine Assertion Drug allergy Active [facility] [place] iodine Assertion Drug allergy Active [facility] [place] Immunizations No Data Provided for This Section Results Order Name Results Value Reference Range Date Interpretation Comments Source HEMATOLOGY Monocytes # 0.3 0.0 - 0.8 09/06/2018 [facility] HEMATOLOGY Eosinophils 0.2 0.0 - 4.0 09/06/2018 [facility] Monocytes 2.8 2.0 - 12.0 09/06/2018 [facility] Lymphocytes 10.0 20.0 - 40.0 09/06/2018 [facility] Segs 86.6 45.0 - 75.0 09/06/2018 [facility] Basophils 0.4 0.0 - 1.0 09/06/2018 [facility] Lymphocytes # 1.2 1.0 - 5.5 09/06/2018 [facility] Neutrophils # 10.4 1.5 - 8.1 09/06/2018 [facility] MPV 7.4 7.4 - 10.4 09/06/2018 [facility] Platelet 280 133 - 450 09/06/2018 [facility] RDW 13.4 11.5 - 14.5 09/06/2018 [facility] MCHC 33.7 32.0 - 36.0 09/06/2018 [facility] WBC 12.0 3.7 - 10.4 09/06/2018 [facility] Hgb 13.7 12.0 - 16.0 09/06/2018 [facility] RBC 4.39 4.20 - 5.40 09/06/2018 [facility] Hct 40.8 36.0 - 48.0 09/06/2018 [facility] MCH 31.3 27.0 - 31.0 09/06/2018 [facility] MCV 93.0 80.0 - 98.0 09/06/2018 [facility] BLOOD BANK RESULTS Antibody Scrn Negative (09/01/18 2:31 PM) 09/01/2018 [facility] BLOOD BANK RESULTS ABO/Rh B POS 09/01/2018 [facility] BLOOD [facility] RESULTS RBC product Product available (09/01/18 2:07 PM) 09/01/2018 [facility] URINALYSIS UA Urobilinogen 0.1 - 1.0 03/18/2013 [facility] URINALYSIS UA Color Ltyellow 03/18/2013 [facility] URINALYSIS UA Bacteria Occas ional /HPF *NA* (03/18/2013 11:35:01) None S een 03/18/2013 [facility] URINALYSIS UA Nitrite Negat enoc (03/18/2013 11:35:01) Negati ve 03/18/2013 Normal [facility] URINALYSIS UA Blood Small *ABN* (03/18/2013 11:35:01) Negati ve 03/18/2013 ABN [facility] URINALYSIS UA Bili Negat enoc *NA* (03/18/2013 11:35:01) Negati ve 03/18/2013 NA [facility] URINALYSIS UA Sq Epi Occas ional /LPF *NA* (03/18/2013 11:35:01) Few 03/18/2013 NA [facility] URINALYSIS UA Leuk Est Negat enoc (03/18/2013 11:35:01) Negati ve 03/18/2013 Normal [facility] URINALYSIS UA RBC <1 0 - 2 03/18/2013 Normal [facility] URINALYSIS UA WBC <1 0 - 5 03/18/2013 Normal [facility] URINALYSIS UA Ketones Negat enoc mg/dL *NA* (03/18/2013 11:35:01) Negati ve 03/18/2013 NA [facility] URINALYSIS UA Glucose Negat enoc mg/dL *NA* (03/18/2013 11:35:01) Negati ve 03/18/2013 NA [facility] URINALYSIS UA Protein Negat enoc mg/dL (03/18/2013 11:35:01) Negati ve 03/18/2013 Normal [facility] URINALYSIS UA pH 5.0 5.0 - 8.0 03/18/2013 Normal [facility] URINALYSIS UA Spec Grav 1.008 <=1.030 03/18/2013 Normal [facility] URINALYSIS UA Turbidity Clear (03/18/2013 11:35:01) Clear 03/18/2013 Normal [facility] Pathology Reports No Data Provided for This Section Diagnostic Reports Report Value Date Source Knee 1-2 Views unilateral DX P atient Name: ROBERTO NIETO : 1940; Age: 77 years y/o Female MR: [id number] * RIGHT KNEE, postoperative 2 views HISTORY: [...] good position without evidence of complication. SL: [id number] 09/06/2018 [facility] Chest 2 views DX Clinical Denise cation: Coughing - pre-op Comparison: None FINDINGS: The PA and lateral chest radiographs shows normal lung volumes without interstitial or airspace opacities, pleural effusions or pneumothorax. The heart size and pulmonary vasculature are normal. The trachea is midline. There are no clinically significant osseous abnormalities noted. IMPRESSION: No chest radiographic evidence of acute cardiopulmonary disease. SL: [id number] 09/01/2018 [facility] Carotid artery Doppler bilat US Clinical Indication: [...] low, or Variable undetectable SL: [id number] 08/19/2018 [facility] Wrist complete ( min.3 views) PORTABLE LEFT WRIST, 3 VIEWS. INDICATION: Pain, sprain. Osteopenia is noted. No fracture is evident. There are calcifications in the region of the triangular fibrocartilage. Intercarpal articulations are not remarkable. Degenerative changes involve the first carpometacarpal articulation. SL: 12 01/18/2014 [facility] Consultation Notes No Data Provided for This Section Discharge Summaries No Data Provided for This Section History and Physicals No Data Provided for This Section Vital Signs Vital Sign Value Date Comments Source Systolic (mm Hg) 128 09/06/2018 [facility] Diastolic (mm Hg) 66 09/06/2018 [facility] Systolic (mm Hg) 110 09/06/2018 [facility] Diastolic (mm Hg) 51 09/06/2018 [facility] Systolic (mm Hg) 103 09/06/2018 [facility] Diastolic (mm Hg) 46 09/06/2018 [facility] Respitory Rate 12 09/06/2018 [facility] Respitory Rate 15 09/06/2018 [facility] Respitory Rate 22 09/06/2018 [facility] Heart Rate 76 09/01/2018 [facility] Temperature Oral (F) 97.9 F 09/01/2018 [facility] Weight 65 0 09/01/2018 [facility] Height 162.56 cm 09/01/2018 [facility] BMI Calculated 24.6 09/01/2018 [facility] Height 162.56 cm 08/19/2018 [facility] BMI Calculated 24.08 08/19/2018 [facility] Weight 63.636 08/19/2018 [facility] Weight 136 02/28/2016 [facility] Height 64 0 02/28/2016 [facility] Heart Rate 74 02/28/2016 [facility] Diastolic (mm Hg) 70 02/28/2016 [facility] Systolic (mm Hg) 150 02/28/2016 [facility] Weight 137 02/06/2016 [facility] Height 64 0 02/06/2016 [facility] Temperature Oral (F) 97.8 F 02/06/2016 [facility] Heart Rate 76 02/06/2016 [facility] Diastolic (mm Hg) 70 02/06/2016 [facility] Systolic (mm Hg) 156 02/06/2016 [facility] Systolic (mm Hg) 148 01/18/2014 [facility] Respitory Rate 18 01/18/2014 [facility] Heart Rate 78 01/18/2014 [facility] Diastolic (mm Hg) 77 01/18/2014 [facility] BMI Calculated 24.94 01/18/2014 [facility] Weight 65.909 01/18/2014 [facility] Height 162.56 cm 01/18/2014 [facility] Respitory Rate 20 01/18/2014 [facility] Heart Rate 77 01/18/2014 [facility] Systolic (mm Hg) 153 01/18/2014 [facility] Diastolic (mm Hg) 80 01/18/2014 [facility] Temperature Oral (F) 98.3 F 01/18/2014 [facility] Weight 63.636 03/18/2013 [facility] Height 162.56 cm 03/18/2013 [facility] Encounters Location Location Details Encounter Type Encounter Number Reason For Visit Attending Provider ADM Date DC Date Status Source [facility] Emergency [id number] GORDONNATE CARVALHOBLUE 03/18/2013 03/18/2013 [facility] [id number] [facility] 01/18/2014 01/18/2014 [facility] [place] [id number] 02/06/2016 02/06/2016 [facility] [place] [id number] 02/06/2016 02/06/2016 [facility] [place] [id number] 02/06/2016 02/06/2016 [facility] [place] [id number] 02/06/2016 02/06/2016 [facility] [place] [id number] 02/06/2016 02/06/2016 [facility] [place] [id number] 02/06/2016 02/06/2016 [facility] [place] [id number] 02/06/2016 02/06/2016 [facility] NICA [id number] 02/07/2016 02/07/2016 [facility] NICA [id number] 02/07/2016 02/07/2016 [facility] NICA [id number] 02/07/2016 02/07/2016 [facility] NICA [id number] 02/07/2016 02/07/2016 [facility] NICA [id number] 02/07/2016 02/07/2016 [facility] Unknown [id number] 02/07/2016 02/07/2016 [facility] Unknown [id number] 02/07/2016 02/07/2016 [facility] Unknown [id number] 02/07/2016 02/07/2016 [facility] Unknown [id number] 02/07/2016 02/07/2016 [facility] Unknown [id number] 02/07/2016 02/07/2016 [facility] Unknown [id number] 02/07/2016 02/07/2016 [facility] Unknown -[id number] 02/07/2016 02/07/2016 [facility] echo results [id number] 02/28/2016 02/28/2016 [facility] echo results [id number] 02/28/2016 02/28/2016 [facility] echo results [id number] 02/28/2016 02/28/2016 [facility] echo results [id number] 02/28/2016 02/28/2016 [facility] RF [id number] 08/27/2016 08/27/2016 [facility] RF [id number] 08/27/2016 08/27/2016 [facility] RF [id number] 08/27/2016 08/27/2016 [facility] RF [id number] 08/27/2016 08/27/2016 [facility] [id number] 08/27/2016 08/27/2016 [facility] [id number] 08/27/2016 08/27/2016 [facility] REFILL [id number] 10/09/2016 10/09/2016 [facility] Outpatient [id number] Arie Medina 08/19/2018 08/20/2018 [facility] Day Surgery [id number] Raz Whiteside 09/06/2018 09/06/2018 [facility] OP Therapy Patients [id number] Raz Whiteside 09/07/2018 10/07/2018 [facility] OP Therapy Patients [id number] Raz Whiteside 10/07/2018 11/07/2018 [facility] OP Therapy Patients [id number] Raz Whiteside 11/07/2018 12/07/2018 [facility] Procedures Procedure Code Date Perfomer Comments Source Hysterectomy [id number] 08/30/1971 [facility] Tonsillectomy and adenoidectomy [id number] 08/30/1949 [facility] Cholecystectomy [id number] [facility] [place] Operation [id number] [facility] Assessment and Plan No Data Provided for This Section Plan of Care No Data Provided for This Section Social History Social History Date Source Social History TypeResponse Substance Abuse Use: None. Alcohol Never Smoking Status Never smoker; Exposure to Tobacco Smoke None; Cigarette Smoking Last 365 Days No; Reg Smoking Cessation Counseling No entered on: 09/01/18 09/01/2018 [facility] Social History TypeResponse Alcohol Never Substance Abuse Use: None. 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 Status , Is tajik your carmen bhumi language? Yes February 28, 2016 Last Bone [...] alcohol? . Status: No February 28, 2016 02/28/2016 [facility] Family History Value Date S ource QualifierDescriptionCommentDate Reported Maternal Grandmother Comment not available February [...] Other: Comment not available February 28, 2016 03/04/2016 [facility] Advance Directives No Data Provided for This Section Functional Status No Data Provided for This Section
--- OUTSIDE RECORDS SUMMARY | 2020-01-24 09:45 | XMS REPORT | Summary of Care ---
Author Author [facility] Address Unknown Phone Unavailable Encounter TEODORA Jorge(NINOSKA) [id number] Date(s): 09/06/18 - 09/06/18 [facility] [address] [place] [address]- [phone] Encounter Diagnosis Unilateral primary osteoarthritis, right knee (Final) - 09/09/18 Essential (primary) hypertension (Final) - Personal history of other venous thrombosis and embolism (Final) - Discharge Disposition: Home or Self Care Attending Physician: Raz Whiteside Referring Physician: Raz Whiteside Vital Signs 1 2 3 Most recent to oldest [Reference Range]: 162.56 cm (09/01/18 1:28 PM) Height 97.9 DegF (09/01/18 1:30 PM) Temperature Oral [96.4-99.1 DegF] 128/66 mmHg (09/06/18 2:00 PM) 110/51 mmHg (09/06/18 1:00 PM) 103/46 mmHg (09/06/18 12:30 PM) Blood Pressure [90-140/60-90 mmHg] 12 BRMIN *LOW* (09/06/18 10:00 AM) 15 BRMIN (09/06/18 9:45 AM) 22 BRMIN *HI* (09/06/18 9:30 AM) Respiratory Rate [14-20 BRMIN] 76 bpm (09/01/18 1:30 PM) Peripheral Pulse Rate [60-100 bpm] 65 kg (09/01/18 1:28 PM) Weight 24.6 m2 (09/01/18 1:28 PM) Body Mass Index Problem List Condition Effective Dates Status Health Status Informan t Achilles Resolved tendinitis(Confirmed ) DVT (deep venous Resolved thrombosis)(Confirme d) Hyperlipidemia(Confi Resolved rmed) Hypertension(Confirm Active ed) Allergies, Adverse Reactions, Alerts Substance Reaction Severity Status codeine Active iodine Active Medications ANES albuterol 0.083% inhalation solution 2.49 mg, Route: NEB, Q20Min, Dosing Weight 65, kg, PRN Wheezing, Priority: STAT, Start date: 09/06/18 10:40:00 PHYSICIAN PEDIATRICIAN, Duration: 30 day, Stop date: 10/06/18 10:39: 00 PHYSICIAN PEDIATRICIAN Start Date: 09/06/18 Stop Date: 09/06/18 Status: Discontinued ANES dexamethasone 4 mg, Route: IVP, ONCE, Dosing Weight 65, kg, PRN Nausea & Vomiting, Start date: 09/06/18 10:40:00 PHYSICIAN PEDIATRICIAN Start Date: 09/06/18 Stop Date: 09/06/18 Status: Discontinued ANES fentaNYL 50 microgram, Route: IVP, Q5Min, Dosing Weight 65, kg, PRN Pain Score 7-10, Prio rity: Routine, Start date: 09/06/18 10:40:00 PHYSICIAN PEDIATRICIAN, Duration: 2 doses or times, St op date: Limited # of times Start Date: 09/06/18 Stop Date: 09/06/18 Status: Discontinued ANES fentaNYL 25 microgram, Route: IVP, Q5Min, Dosing Weight 65, kg, PRN Pain Score 4-6, Prior ity: Routine, Start date: 09/06/18 10:40:00 PHYSICIAN PEDIATRICIAN, Duration: 4 doses or times, Sto p date: Limited # of times Start Date: 09/06/18 Stop Date: 09/06/18 Status: Discontinued ANES flumazenil 0.2 mg, Route: IVP, PRN, Dosing Weight 65, kg, PRN Benzodiazepine Reversal, Init ial dose, Start date: 09/06/18 10:40:00 PHYSICIAN PEDIATRICIAN, Duration: 30 day, Stop date: 10:39:00 PHYSICIAN PEDIATRICIAN Start Date: 09/06/18 Stop Date: 09/06/18 Status: Discontinued ANES naloxone 0.4 mg, Route: IVP, Q2MIN, Dosing Weight 65, kg, PRN Narcotic Reversal, Start da te: 09/06/18 10:40:00 PHYSICIAN PEDIATRICIAN, Duration: 8 doses or times, Stop date: Limited # of t imes Start Date: 09/06/18 Stop Date: 09/06/18 Status: Discontinued ANES ondansetron 4 mg, Route: IVP, ONCE, Dosing Weight 65, kg, PRN Nausea & Vomiting, Start date: 09/06/18 10:40:00 PHYSICIAN PEDIATRICIAN Start Date: 09/06/18 Stop Date: 09/06/18 Status: Discontinued ANES oxyCODONE 5 mg, Route: PO, Drug form: LIQ, Q4H, Dosing Weight 65, kg, PRN Pain Score 7-10, Start date: 09/06/18 10:40:00 PHYSICIAN PEDIATRICIAN, Duration: 30 day, Stop date: 10/06/18 10:39: 00 PHYSICIAN PEDIATRICIAN Start Date: 09/06/18 Stop Date: 09/06/18 Status: Discontinued ANES oxyCODONE 2.5 mg, Route: PO, Drug form: LIQ, Q4H, Dosing Weight 65, kg, PRN Pain Score 4-6 , Start date: 09/06/18 10:40:00 PHYSICIAN PEDIATRICIAN, Duration: 30 day, Stop date: 10/06/18 10:39 :00 PHYSICIAN PEDIATRICIAN Start Date: 09/06/18 Stop Date: 09/06/18 Status: Discontinued ceFAZolin (ANES) Route: IV, Drug form: INJ, ONCE, Stop date: 09/06/18 8:16:00 PHYSICIAN PEDIATRICIAN Start Date: 09/06/18 Stop Date: 09/06/18 Status: Completed ceFAZolin (SCIP) 1 gm, Route: IVPB, Drug form: INJ, Q6H, Dosing Weight 65, kg, Start date: 12:00:00 PHYSICIAN PEDIATRICIAN, Duration: 3 doses or times, Stop date: 09/07/18 0:00:00 PHYSICIAN PEDIATRICIAN, AB X Indication: Surgical Prophylaxis Start Date: 09/06/18 Stop Date: 09/06/18 Status: Discontinued celecoxib 400 mg, Route: PO, ONCALL, Dosing Weight 65, kg, (for CrCl > 90 mL/min), Start date: 09/06/18 6:00:00 PHYSICIAN PEDIATRICIAN, Duration: 30 day, Stop date: 10/06/18 5:59:00 PHYSICIAN PEDIATRICIAN Start Date: 09/06/18 Stop Date: 09/06/18 Status: Completed Centrum Adults oral tablet PO, Daily, 0 Refill(s) Start Date: 09/01/18 Status: Ordered dexamethasone (ANES) Route: IV, Drug form: INJ, ONCE, Stop date: 09/06/18 8:31:00 PHYSICIAN PEDIATRICIAN Start Date: 09/06/18 Stop Date: 09/06/18 Status: Completed enalapril (ANES) Route: IV, Drug form: INJ, ONCE, Stop date: 09/06/18 9:10:00 PHYSICIAN PEDIATRICIAN Start Date: 09/06/18 Stop Date: 09/06/18 Status: Completed enoxaparin 30 mg, Route: SUB-Q, Drug form: INJ, [id number], Dosing Weight 65, kg, Start date: 09/06/18 10:00:00 PHYSICIAN PEDIATRICIAN, Duration: 30 day, Stop date: 10/05/18 22:00:00 PHYSICIAN PEDIATRICIAN Start Date: 09/06/18 Stop Date: 09/06/18 Status: Discontinued fentaNYL (ANES) Route: IV, Drug form: INJ, ONCE, Stop date: 09/06/18 8:11:00 PHYSICIAN PEDIATRICIAN Start Date: 09/06/18 Stop Date: 09/06/18 Status: Completed folic acid Daily, 0 Refill(s) Start Date: 09/01/18 Status: Ordered gabapentin 300 mg, Route: PO, ONCALL, Dosing Weight 65, kg, Start date: 09/06/18 6:00:00 CS T, Duration: 30 day, Stop date: 10/06/18 5:59:00 PHYSICIAN PEDIATRICIAN Start Date: 09/06/18 Stop Date: 09/06/18 Status: Completed glycopyrrolate (ANES) Route: IV, Drug form: INJ, ONCE, Stop date: 09/06/18 9:10:00 PHYSICIAN PEDIATRICIAN Start Date: 09/06/18 Stop Date: 09/06/18 Status: Completed hydrALAZINE (ANES) Route: IV, Drug form: INJ, ONCE, Stop date: 09/06/18 9:10:00 PHYSICIAN PEDIATRICIAN Start Date: 09/06/18 Stop Date: 09/06/18 Status: Completed Keflex 500 mg oral capsule 500 mg = 1 cap, PO, QID, X 10 day, # 40 cap, 0 Refill(s) Start Date: 09/06/18 Stop Date: 09/16/18 Status: Completed Lactated Ringers Injection IV (ANES) 1000 mL Route: IV, Total Volume: 1,000, Start date: 09/06/18 7:38:00 PHYSICIAN PEDIATRICIAN, Stop date: 04/17 8:38:00 PHYSICIAN PEDIATRICIAN Start Date: 09/06/18 Stop Date: 09/06/18 Status: Completed Lactated Ringers IV 1,000 mL 1,000 mL, Rate: 40 ml/hr, Infuse over: 25 hr, Route: IV, Dosing Weight 65 kg, To debby Volume: 1,000, Start date: 09/06/18 6:31:00 PHYSICIAN PEDIATRICIAN, Duration: 1 day, Stop date: 09/07/18 6:30:00 PHYSICIAN PEDIATRICIAN, 1.73, m2 Start Date: 09/06/18 Stop Date: 09/06/18 Status: Discontinued Lactated Ringers IV 1000 mL 1,000 mL, Rate: 75 ml/hr, Infuse over: 13.3 hr, Route: IV, Dosing Weight 65 kg, Total Volume: 1,000, Start date: 09/06/18 9:01:00 PHYSICIAN PEDIATRICIAN, Duration: 30 day, Stop da te: 10/06/18 9:00:00 PHYSICIAN PEDIATRICIAN, 1.73, m2 Start Date: 09/06/18 Stop Date: 09/06/18 Status: Discontinued lidocaine (ANES) Route: IV, Drug form: INJ, ONCE, Stop date: 09/06/18 8:31:00 PHYSICIAN PEDIATRICIAN Start Date: 09/06/18 Stop Date: 09/06/18 Status: Completed losartan PO, Daily, 0 Refill(s) Start Date: 09/01/18 Status: Ordered Lovenox 30 mg/0.3 mL subcutaneous solution 30 mg, SUB-Q, BID, Complete all the injections, X 14 day, # 28 inj, 0 Refill(s) Start Date: 09/06/18 Stop Date: 09/20/18 Status: Completed Lunesta 3 mg, Route: PO, Bedtime, Dosing Weight 65, kg, Start date: 09/06/18 21:00:00 CS T, Duration: 30 day, Stop date: 10/05/18 21:00:00 PHYSICIAN PEDIATRICIAN Start Date: 09/06/18 Stop Date: 09/06/18 Status: Discontinued Lunesta 3 mg, Route: PO, Bedtime, Dosing Weight 65, kg, Start date: 09/06/18 21:00:00 CS T, Duration: 30 day, Stop date: 10/05/18 21:00:00 PHYSICIAN PEDIATRICIAN Start Date: 09/06/18 Stop Date: 09/06/18 Status: Discontinued metoclopramide (ANES) Route: IV, Drug form: INJ, ONCE, Stop date: 09/06/18 8:26:00 PHYSICIAN PEDIATRICIAN Start Date: 09/06/18 Stop Date: 09/06/18 Status: Completed metoprolol (ANES) Route: IV, Drug form: INJ, ONCE, Stop date: 09/06/18 8:41:00 PHYSICIAN PEDIATRICIAN Start Date: 09/06/18 Stop Date: 09/06/18 Status: Completed midazolam (ANES) Route: IV, Drug form: SOLN, ONCE, Stop date: 09/06/18 8:11:00 PHYSICIAN PEDIATRICIAN Start Date: 09/06/18 Stop Date: 09/06/18 Status: Completed neostigmine (ANES) Route: IV, Drug form: INJ, ONCE, Stop date: 09/06/18 9:10:00 PHYSICIAN PEDIATRICIAN Start Date: 09/06/18 Stop Date: 09/06/18 Status: Completed [place] 7.5/325 oral tablet 2 tab, Route: PO, Drug Form: TAB, Dosing Weight 65, kg, Q4H, PRN Pain Score 7-10 , Start date: 09/06/18 9:01:00 PHYSICIAN PEDIATRICIAN, Duration: 30 day, Stop date: 10/06/18 9:00:0 0 PHYSICIAN PEDIATRICIAN Start Date: 09/06/18 Stop Date: 09/06/18 Status: Discontinued [place] 7.5/325 oral tablet 1 tab, Route: PO, Drug Form: TAB, Dosing Weight 65, kg, Q4H, PRN Pain Score 4-6, Start date: 09/06/18 9:01:00 PHYSICIAN PEDIATRICIAN, Duration: 30 day, Stop date: 10/06/18 9:00:00 PHYSICIAN PEDIATRICIAN Start Date: 09/06/18 Stop Date: 09/06/18 Status: Discontinued ondansetron (ANES) Route: IV, Drug form: INJ, ONCE, Stop date: 09/06/18 8:26:00 PHYSICIAN PEDIATRICIAN Start Date: 09/06/18 Stop Date: 09/06/18 Status: Completed propofol (ANES) Route: IV, Drug form: INJ, ONCE, Stop date: 09/06/18 8:11:00 PHYSICIAN PEDIATRICIAN Start Date: 09/06/18 Stop Date: 09/06/18 Status: Completed ROMANA Pericapsular INJ 100 mL, Route: InFILtration(local), Drug Form: INJ, Dosing Weight 65, kg, ONCALL , Start date: 09/06/18 6:00:00 PHYSICIAN PEDIATRICIAN, Duration: 30 day, Stop date: 10/06/18 5:59:0 0 PHYSICIAN PEDIATRICIAN Start Date: 09/06/18 Stop Date: 09/06/18 Status: Deleted ROMANA Pericapsular INJ 100 mL, Route: InFILtration(local), Drug Form: INJ, Dosing Weight 65, kg, ONCALL , Start date: 09/06/18 5:00:00 PHYSICIAN PEDIATRICIAN, Duration: 30 day, Stop date: 10/06/18 4:59:0 0 PHYSICIAN PEDIATRICIAN Notes: NOT FOR IV useRopivacaine 5 mg/mL (49.25 mL) Epinephrine 1 mg/mL (0.5 mL) Clonidine 0.1 mg/mL (0.8 mL) Ketorolac 30 mg/mL (1 mL) Normal Saline 48 .45 mL Start Date: 09/06/18 Stop Date: 09/06/18 Status: Discontinued rocuronium (ANES) Route: IV, Drug form: INJ, ONCE, Stop date: 09/06/18 8:31:00 PHYSICIAN PEDIATRICIAN Start Date: 09/06/18 Stop Date: 09/06/18 Status: Completed Tylenol 650 mg, Route: PO, Drug form: TAB, Q6H, Dosing Weight 65, kg, PRN For Temp > 100.4 F, Start date: 09/06/18 9:01:00 PHYSICIAN PEDIATRICIAN, Duration: 30 day, Stop date: 10/06/18 9:00:00 PHYSICIAN PEDIATRICIAN Start Date: 09/06/18 Stop Date: 09/06/18 Status: Discontinued Ultram 50 mg oral tablet 50 mg = 1 tab, PO, Q12H, PRN for pain, X 30 day, # 60 tab, 0 Refill(s) Start Date: 09/06/18 Stop Date: 10/06/18 Status: Completed Vitamin B12 0 Refill(s) Start Date: 09/01/18 Status: Ordered Vitamin D2 50,000 intl units oral capsule 50,000 IntlUnit = 1 cap, PO, QWed, 0 Refill(s) Start Date: 09/01/18 Status: Ordered Results Most recent to 1 oldest [Reference Range]: Neutrophils # 10.4 K/CMM [1.5-8.1 K/CMM] *HI* (09/06/18 9:58 AM) Lymphocytes # 1.2 K/CMM [1.0-5.5 K/CMM] (09/06/18 9:58 AM) Monocytes # [0.0-0.8 0.3 K/CMM K/CMM] (09/06/18 9:58 AM) RBC product Product available (09/01/18 2:07 PM) ABO/Rh B POS *Unknown* (09/01/18 2:31 PM) Antibody Scrn Negative (09/01/18 2:31 PM) Basophils [0.0-1.0 0.4 % %] (09/06/18 9:58 AM) Eosinophils [0.0-4.0 0.2 % %] (09/06/18 9:58 AM) Hct [36.0-48.0 %] 40.8 % (09/06/18 9:58 AM) Hgb [12.0-16.0 g/dL] 13.7 g/dL (09/06/18 9:58 AM) Lymphocytes 10.0 % [20.0-40.0 %] *LOW* (09/06/18 9:58 AM) MCH [27.0-31.0 pg] 31.3 pg *HI* (09/06/18 9:58 AM) MCHC [32.0-36.0 33.7 g/dL g/dL] (09/06/18 9:58 AM) MCV [80.0-98.0 fL] 93.0 fL (09/06/18 9:58 AM) Monocytes [2.0-12.0 2.8 % %] (09/06/18 9:58 AM) MPV [7.4-10.4 fL] 7.4 fL (09/06/18 9:58 AM) Platelet [133-450 280 K/CMM K/CMM] (09/06/18 9:58 AM) Segs [45.0-75.0 %] 86.6 % *HI* (09/06/18 9:58 AM) RBC [4.20-5.40 4.39 M/CMM M/CMM] (09/06/18 9:58 AM) RDW [11.5-14.5 %] 13.4 % (09/06/18 9:58 AM) WBC [3.7-10.4 K/CMM] 12.0 K/CMM *HI* (09/06/18 9:58 AM) Immunizations No data available for this section Procedures Procedure Date Related Diagnosis Body Site Status Hysterectomy 1971 Completed Tonsillectomy and adenoidectomy 1949 Comple zeus Cholecystectomy Completed Operation Completed Operation Completed Social History Social History Type Response Substance Abuse Use: None. Alcohol Never Smoking Status Never smoker; Exposure to T obacco Smoke None; Cigarette Smoking Last 365 Days No; Reg Smoking Cessation Counseli ng No entered on: 09/01/18 Assessment and Plan No data available for this section
--- OUTSIDE RECORDS SUMMARY | 2020-01-24 09:45 | XMS REPORT ---
Author Author [facility] t Organization [facility] Address [address] 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 11 Active 09/07/2018 [facility] Diagnosis Active 2018-09-07 08:00:00 2018-11-07 10:10:00 [facility] [place] S/P RT KNEE S/P RT KNEE Active 09/06/2018 [facility] [place] Diagnosis Active 2018-09-06 08:00:00 2018-09-07 10:11:00 [facility] [place] RT KNEE PAIN RT K NEE PAIN Active 09/06/2018 [facility] [place] Diagnosis Active 2018-09-06 08:00:00 2018-10-07 08:55: 00 [facility] [place] DX: I42.9/ I65.23 DX: I42.9/ I65.23 Active 08/18/2018 [facility] Diagnosis Active 2018-08-18 00:00:00 2018-08-19 13:06:00 [facility] TOTAL KNEE TOTA L KNEE Active 08/16/2018 [facility] Diagnosis Active 2018-08-16 00:00:00 2018-09-06 05:36:00 [facility] Combined forms of age-related cataract of both eyes Co mbined forms of age- related cataract of both eyes Disease Active 2018-06-08 00:00:00 [facility] [employer] LEFT ARM PAIN LEFT ARM PAIN Active 01/18/2014 [facility] Diagnosis Active 2014-01-18 00:00:00 2014-01-18 08:53:00 [facility] UTI UTI Active 03/18/2013 [facility] Diagnosis Active 2013-03-18 00:00:00 2013-03-18 12:36:00 [facility] Achilles tendinitis (disorder) Achilles tendinitis (disorder) Resolved Problem 04/26/2019 [facility] [place] Problem Resolved 2019-04-26 11:48:53 [facility] Deep venous thrombosis (disorder) Deep venous thrombosis (disorder) Resolved Problem 04/26/2019 [facility] [place] Problem Resolved 2019-04-26 11:48:53 [facility] Hyperlipidemia (disorder) Hype rlipidemia (disorder) Resolved Problem 04/26/2019 [facility] [place] Problem Resolved 2019-04-26 11:48:53 [facility] Hypertensive disorder, systemic arterial (disorder) Hypertensive disorder, systemic arterial (disorder) Active Problem 04/26/2019 [facility] [place] Problem Active 2019-04-26 11:48:53 [facility] [place] Achilles tendinitis Achi lles tendinitis Resolved Problem 03/20/2013 [facility] Problem Resolved 2013-03-20 21:14: 32 [facility] Hyperlipidemia Hype rlipidemia Resolved Problem 03/20/2013 [facility] Problem Resolved 2013-03-20 21:14:32 [facility] Hypertension Hype rtension Resolved Problem 03/20/2013 [facility] Problem Resolved 2013-03-20 21:14:32 [facility] Pain in right knee Pain in right knee 04/26/2019 [facility] [place] Problem 2019-04-26 11: 48:53 [facility] [place] Weakness Weak ness 04/26/2019 [facility] [place] Problem 2019-04-26 11:48:53 S [facility] [place] Difficulty in walking, not elsewhere classified Difficulty in walking, not elsewhere classified 04/26/2019 [facility] [place] Problem 2019-04-26 11:48:53 [facility] [place] Aftercare following joint replacement surgery Aftercare following joint replacement surgery 04/26/2019 [facility] [place] Problem 2019-04-26 11:48:53 [facility] [place] Presence of right artificial knee joint Presence of right artificial knee joint 04/26/2019 [facility] [place] Problem 2019-04-26 11:48:53 [facility] [place] Essential (primary) hypertension Essential (primary) hypertension 04/26/2019 [facility] [place] Problem 2019-04-26 11:48:53 [facility] [place] Age-related osteoporosis without current pathological fracture Age-related osteoporosis without current pathological fracture 04/26/2019 [facility] [place] Problem 2019-04-26 11: 48:53 [facility] [place] Occlusion and stenosis of bilateral carotid arteries Occlusion and stenosis of bilateral carotid arteries 03/09/2019 [facility] Problem 2019-03-09 11:10:29 [facility] Nonrheumatic aortic (valve) insufficiency Nonrheumatic aortic (valve) insufficiency 03/09/2019 [facility] Problem 2019-03-09 11:10:29 [facility] Abnormal findings on diagnostic imaging of heart and c oronary circulation Abnormal findings on diagnostic imaging of heart and coronary circulation 03/09/2019 [facility] Problem 2019-03-09 1 1:10:29 [facility] Personal history of other venous thrombosis and emboli Personal history of other venous thrombosis and embolism 03/26/2019 [facility] Problem 2019-03-26 13:46:35 [facility] Achilles tendonitis Achi lles tendonitis Active Problem 10/10/2016 [facility] Problem Active 2016-10-10 03:26:00 [facility] Pericardial effusion Talita cardial effusion Active Diagnosis 03/04/2016 [facility] Diagnosis Active 2016-03-04 02:08:37 [facility] Vitamin D deficiency Christianne min D deficiency Active Problem 10/10/2016 [facility] Problem Active 2016-10-10 03:26:00 [facility] Essential hypertension Esse ntial hypertension Active Diagnosis 10/10/2016 [facility] Diagnosis Active 2016-10-10 03:26:00 [facility] Rosacea Nay cea Active Problem 10/10/2016 [facility] Problem Active 2016-10-10 03:26:00 [facility] Prediabetes Pred iabetes Active Problem 10/10/2016 [facility] Problem Active 03:26:00 [facility] Hx of deep venous thrombosis H x of deep venous thrombosis Active Problem 10/10/2016 [facility] Problem Active 2016-10-10 03:26:00 [facility] Hyperlipidemia, unspecified Hy perlipidemia, unspecified Active Problem 10/10/2016 [facility] Problem Active 2016-10-10 03:26:00 [facility] Osteoarthrosis Oste oarthrosis Active Problem 10/10/2016 [facility] Problem Active 2 03:26:00 [facility] Abnormal EKG Abno rmal EKG Active Diagnosis 02/11/2016 [facility] Diagnosis Active 2016-02-11 02:17:28 [facility] Urinary tract infection Urin sixto tract infection Active Diagnosis 02/08/2016 [facility] Diagnosis Active 2016-02-08 02:16:08 [facility] Frequent urination Freq uent urination Active Diagnosis 02/08/2016 [facility] Diagnosis Active 2016-02-08 02:16:08 [facility] RENA positive RENA positive Active Diagnosis 03/04/2016 [facility] Diagnosis Active 2016-03-04 02:08:37 [facility] Unilateral primary osteoarthritis, right knee Unilateral primary osteoarthritis, right knee 10/12/2018 04/26/2019 [facility] [place] Problem 2018-10-12 05:44:33 2019-04-26 11:4 8:53 2019-04-26 11:48:53 [facility] [place] Cardiomyopathy, unspecified Ca rdiomyopathy, unspecified 08/27/2018 03/09/2019 [facility] Problem 2018-08-27 04:3 8:42 2019-03-09 11:10:29 2019-03-09 11:10:29 [facility] Discharge Diagnosis: Wrist sprain Discharge Diagnosis: Wrist sprain 01/18/2014 01/21/2014 [facility] Problem 2 05:00:00 2014-01-21 04:51:37 2014-01-21 04:51:37 [facility] Allergies, Adverse Reactions, Alerts Allergy Name Allergy Type Status Severity Reaction(s) Onset Date Inacti ve Date Treating Clinician Comments Source Sulfamethoxazole Allergy to Substance Active Moderate heart rac es 2019-01-29 00:00:00 [facility] Trimethoprim Allergy to Substance Active Moderate heart races 2 00:00:00 [facility] Levofloxacin Allergy to Substance Active Moderate achilles tend onitis 2019-01-29 00:00:00 [facility] Codeine Propensity to adverse reactions to drug Active Hives 2017 00:00:00 Emil gilmore Levofloxacin Propensity to adverse reactions to drug Active Other (See Comments) 2017 00:00:00 Severe Tendinitis Lexie Spear shellfish shellfish Active Info Not Available 2016-02-28 00:00:00 [facility] Iodine Iodine Active Info Not Available 2016-02-28 00:00:00 [facility] Codeine Sulfate Codeine Sulfate Active Info Not Available 2016-02-28 00:00:00 [facility] codeine codeine Active [facility] iodine iodine Active [facility] Social History Social Habit Start Date Stop Date Quantity Comments Source Sex Assigned At Lexie Spear Social History 2018-09-01 19:36:54 2018-09-01 19:36:54 [facility] Alcohol intake 2018-06-08 00:00:00 2018-06-08 00:00:00 Current non-drinker of alcohol (finding) Emil Spear Occupation: 2016-02-28 00:00:00 2016-02-28 00:00:00 [facility] Smoking Status Start Date Stop Date Source Never smoker Emil gilmore Medications Ordered Medication Name Filled Medication Name Start Date Stop Da te Current Medication? Ordering Clinician Indication Dosage Frequency Signature (SIG) Comments Components Source Lunesta 2018-09-07 03:00:00 No 3 mg, Route: PO, Bedtime, Dosing Weight 65, kg, Start date: 09/06/18 21:00:00 ASSOCIATE PROJECT MANAGER, Duration: 30 day, Stop date: 10/05/18 21:00:00 ASSOCIATE PROJECT MANAGER [facility] Cefazolin 2018-09-06 18:00:00 No 1 gm, Route: IVPB, Drug form: INJ, Q6H, Dosing Weight 65, kg, Start date: 09/06/18 12:00:00 ASSOCIATE PROJECT MANAGER, Duration: 3 doses or times, Stop date: 09/07/18 0:00:00 ASSOCIATE PROJECT MANAGER, ABX Indication: Surgical Prophylaxis [facility] Flumazenil 2018-09-06 16:40:00 No 0.2 mg, Route: IVP, PRN, Dosing Weight 65, kg, PRN Benzodiazepine Reversal, Initial dose, Start date: 09/06/18 10:40:00 ASSOCIATE PROJECT MANAGER, Duration: 30 day, Stop date: 10/06/18 10:39:00 ASSOCIATE PROJECT MANAGER [facility] Fentanyl 2018-09-06 16:40:00 No 50 microgram, Route: IVP, Q5Min, Dosing Weight 65, kg, PRN Pain Score 7-10, Priority: Routine, Start date: 09/06/18 10:40:00 ASSOCIATE PROJECT MANAGER, Duration: 2 doses or times, Stop date: Limited # of times [facility] Oxycodone 2018-09-06 16:40:00 No 5 mg, Route: PO, Drug form: LIQ, Q4H, Dosing Weight 65, kg, PRN Pain Score 7-10, Start date: 09/06/18 10:40:00 ASSOCIATE PROJECT MANAGER, Duration: 30 day, Stop date: 10/06/18 10:39:00 ASSOCIATE PROJECT MANAGER [facility] Dexamethasone 2018-09-06 16:40:00 No 4 mg, Route: IVP, ONCE, Dosing Weight 65, kg, PRN Nausea & Vomiting, Start date: 09/06/18 10:40:00 ASSOCIATE PROJECT MANAGER [facility] Ondansetron 2018-09-06 16:40:00 No 4 mg, Route: IVP, ONCE, Dosing Weight 65, kg, PRN Nausea & Vomiting, Start date: 09/06/18 10:40:00 ASSOCIATE PROJECT MANAGER [facility] Naloxone 2018-09-06 16:40:00 No 0.4 mg, Route: IVP, Q2MIN, Dosing Weight 65, kg, PRN Narcotic Reversal, Start date: 09/06/18 10:40:00 ASSOCIATE PROJECT MANAGER, Duration: 8 doses or times, Stop date: Limited # of times [facility] Albuterol 0.83 MG/ML Inhalant Solution 2018-09-06 16:40:00 No 2.49 mg, Route: NEB, Q20Min, Dosing Weight 65, kg, PRN Wheezing, Priority: STAT, Start date: 09/06/18 10:40:00 ASSOCIATE PROJECT MANAGER, Duration: 30 day, Stop date: 10/06/18 10:39:00 ASSOCIATE PROJECT MANAGER [facility] Enoxaparin 2018-09-06 16:00:00 No 30 mg, Route: SUB-Q, Drug form: INJ, [id number], Dosing Weight 65, kg, Start date: 09/06/18 10:00:00 ASSOCIATE PROJECT MANAGER, Duration: 30 day, Stop date: 10/05/18 22:00:00 ASSOCIATE PROJECT MANAGER [facility] hydrALAZINE (ANES) 2018-09-06 15:10:00 No Route: IV, Drug form: INJ, ONCE, Stop date: 09/06/18 9:10:00 ASSOCIATE PROJECT MANAGER [facility] enalapril (ANES) 2018-09-06 15:10:00 No Route: IV, Drug form: INJ, ONCE, Stop date: 09/06/18 9:10:00 ASSOCIATE PROJECT MANAGER [facility] glycopyrrolate ([facility]) 2018-09-06 15:10:00 No Route: IV, Drug form: INJ, ONCE, Stop date: 09/06/18 9:10:00 ASSOCIATE PROJECT MANAGER [facility] neostigmine ([facility]) 2018-09-06 15:10:00 No Route: IV, Drug form: INJ, ONCE, Stop date: 09/06/18 9:10:00 ASSOCIATE PROJECT MANAGER [facility] Acetaminophen 325 MG / Hydrocodone Thu trate 7.5 MG Oral Tablet [[place] 7.5/325] 2018-09-06 15:01:00 No 2 tab, Route: PO, Drug Form: TAB, Dosing Weight 65, kg, Q4H, PRN Pain Score 7-10, Start date: 09/06/18 9:01:00 ASSOCIATE PROJECT MANAGER, Duration: 30 day, Stop date: 10/06/18 9:00:00 ASSOCIATE PROJECT MANAGER [facility] Tylenol 2018-09-06 15:01:00 No 100.4 F, Start date: 09/06/18 9:01:00 ASSOCIATE PROJECT MANAGER, Duration: 30 day, Stop date: 10/06/18 9:00:00 ASSOCIATE PROJECT MANAGER [facility] Lactated Ringers IV 1000 mL 2018-09-06 15:01:00 No 1,000 mL, Rate: 75 ml/hr, Infuse over: 13.3 hr, Route: IV, Dosing Weight 65 kg, Total Volume: 1,000, Start date: 09/06/18 9:01:00 ASSOCIATE PROJECT MANAGER, Duration: 30 day, Stop date: 10/06/18 9:00:00 ASSOCIATE PROJECT MANAGER, 1.73, m2 [facility] metoprolol (ANES) 2018-09-06 14:41:00 No Route: IV, Drug form: INJ, ONCE, Stop date: 09/06/18 8:41:00 ASSOCIATE PROJECT MANAGER [facility] dexamethasone (ANES) 2018-09-06 14:31:00 No Route: IV, Drug form: INJ, ONCE, Stop date: 09/06/18 8:31:00 ASSOCIATE PROJECT MANAGER [facility] rocuronium ([facility]) 2018-09-06 14:31:00 No Route: IV, Drug form: INJ, ONCE, Stop date: 09/06/18 8:31:00 ASSOCIATE PROJECT MANAGER [facility] lidocaine ([facility]) 2018-09-06 14:31:00 No Route: IV, Drug form: INJ, ONCE, Stop date: 09/06/18 8:31:00 ASSOCIATE PROJECT MANAGER [facility] metoclopramide ([facility]) 2018-09-06 14:26:00 No Route: IV, Drug form: INJ, ONCE, Stop date: 09/06/18 8:26:00 ASSOCIATE PROJECT MANAGER [facility] ondansetron ([facility]) 2018-09-06 14:26:00 No Route: IV, Drug form: INJ, ONCE, Stop date: 09/06/18 8:26:00 ASSOCIATE PROJECT MANAGER [facility] ceFAZolin ([facility] 2018-09-06 14:16:00 No Route: IV, Drug form: INJ, ONCE, Stop date: 09/06/18 8:16:00 ASSOCIATE PROJECT MANAGER [facility] propofol ([facility] 2018-09-06 14:11:00 No Route: IV, Drug form: INJ, ONCE, Stop date: 09/06/18 8:11:00 ASSOCIATE PROJECT MANAGER [facility] fentaNYL ([facility] 2018-09-06 14:11:00 No Route: IV, Drug form: INJ, ONCE, Stop date: 09/06/18 8:11:00 ASSOCIATE PROJECT MANAGER [facility] midazolam ([facility] 2018-09-06 14:11:00 No Route: IV, Drug form: SOLN, ONCE, Stop date: 09/06/18 8:11:00 ASSOCIATE PROJECT MANAGER [facility] Lactated Ringers Injection IV ([facility] 1000 mL 2018-09-06 13:38:00 No Route: IV, Total Volume: 1,000, Start date: 09/06/18 7:38:00 ASSOCIATE PROJECT MANAGER, Stop date: 09/06/18 8:38:00 ASSOCIATE PROJECT MANAGER [facility] tramadol hydrochloride 50 MG Oral Tablet [Ultram] 2018-09-06 12:44:00 No 50 mg = 1 tab, PO, Q12H, PRN for pain, X 30 day , # 60 tab, 0 Refill(s) [facility] Lactated Ringers IV 1,000 mL 2018-09-06 12:31:00 No 1,000 mL, Rate: 40 ml/hr, Infuse over: 25 hr, Route: IV, Dosing Weight 65 kg, Total Volume: 1,000, Start date: 09/06/18 6:31:00 ASSOCIATE PROJECT MANAGER, Duration: 1 day, Stop date: 09/07/18 6:30:00 ASSOCIATE PROJECT MANAGER, 1.73, m2 [facility] ropivacaine 2018-09-06 12:00:00 No 100 mL, Route: InFILtration(local), Drug Form: INJ, Dosing Weight 65, kg, ONCALL, Start date: 09/06/18 6:00:00 ASSOCIATE PROJECT MANAGER, Duration: 30 day, Stop date: 10/06/18 5:59:00 ASSOCIATE PROJECT MANAGER [facility] gabapentin 2018-09-06 12:00:00 No 300 mg, Route: PO, ONCALL, Dosing Weight 65, kg, Start date: 09/06/18 6:00:00 ASSOCIATE PROJECT MANAGER, Duration: 30 day, Stop date: 10/06/18 5:59:00 ASSOCIATE PROJECT MANAGER [facility] celecoxib 2018-09-06 12:00:00 No 90 mL/min), Start date: 09/06/18 6:00:00 ASSOCIATE PROJECT MANAGER, Duration: 30 day, Stop date: 10/06/18 5:59:00 ASSOCIATE PROJECT MANAGER [facility] 0.3 ML Enoxaparin sodium 100 MG/ML Prefilled Syringe [Loveno x] 2018-09-06 11:42:00 No 30 mg, SUB -Q, BID, Complete all the injections, X 14 day, # 28 inj, 0 Refill(s) [facility] Cephalexin 500 MG Oral Capsule [Keflex] 2018-09-06 11:42:00 No 500 mg = 1 cap, PO, QID, X 10 day, # 40 cap, 0 Refill(s) [facility] ropivacaine 2018-09-06 11:00:00 No Notes: NOT FOR IV use Ropivacaine 5 mg/mL (49.25 mL) Epinephrine 1 mg/mL (0.5 mL) Clonidine 0.1 mg/mL (0.8 mL) Ketorolac 30 mg/mL (1 mL) Normal Saline 48.45 mL [facility] Losartan 2018-09-01 20:16:00 Yes PO, Daily, 0 Refill(s) [facility] Vitamin D2 50,000 intl units oral capsule 2018-09-01 20:16:00 Yes 50,000 IntlUnit = 1 cap, PO, QWed, 0 Refill(s) [facility] Folic Acid 2018-09-01 20:15:00 Yes Daily, 0 Refill(s) [facility] Vitamin B12 2018-09-01 20:15:00 Yes 0 Refill (s) [facility] Centrum Adults oral tablet 2018-09-01 20:15:00 Yes PO, Daily, 0 Refill(s) [facility] Lisinopril 2016-10-10 03:26:00 Yes Anita Carlos 1 tablet [facility] Pravastatin Sodium 2016-08-28 03:20:21 Yes Joyce Patricia 1 tablet [facility] Zyrtec Allergy 2016-03-04 02:08:37 Yes Joyce Patricia 1 tablet [facility] Bactrim DS 2016-02-06 00:00:00 Yes Joyce Patricia 1 tablet [facility] Naproxen Sodium 2014-02-01 00:00:00 Yes Joyce Patricia 1 tablet [facility] tramadol hydrochloride 50 MG Oral Tablet [Ultram] 2014-01-18 13:40:00 Yes 50 mg = 1 tab, PO, Q4H, pain, # 20 tab, 0 Refil l(s) [facility] naproxen 500 mg oral tablet 2014-01-18 13:39:00 Yes 500 mg = 1 tab, PO, BID, Pain, # 30 tab, 0 Refill(s) [facility] lisinopril 20 mg oral tablet 2014-01-18 12:04:00 Yes 20 mg = 1 tab, PO, Daily, # 30 tab, 0 Refill(s) [facility] angel pravastatin 40 mg oral tablet 2014-01-18 12:04:00 Yes 40 mg = 1 tab, PO, Bedtime, # 30 tab, 0 Refill(s) [facility] Macrobid 100 mg oral capsule 2013-03-18 17:36:07 Yes See [place] 100 mg, 1 cap, PO, BID, 20 cap, Substitu tion Allowed, CAP [facility] Vital Signs Vital Name Observation Time Observation Value Comments Source Systolic (mm Hg) 2018-09-06 20:00:00 [facility] Diastolic (mm Hg) 2018-09-06 20:00:00 [facility] Systolic (mm Hg) 2018-09-06 19:00:00 [facility] Diastolic (mm Hg) 2018-09-06 19:00:00 [facility] Systolic (mm Hg) 2018-09-06 18:30:00 [facility] Diastolic (mm Hg) 2018-09-06 18:30:00 [facility] Respitory Rate 2018-09-06 16:00:00 [facility] Elsa theast Respitory Rate 2018-09-06 15:45:00 Elsa theast Respitory Rate 2018-09-06 15:30:00 Elsa theast Heart Rate 2018-09-01 19:30:00 [facility] Temperature Oral (F) 2018-09-01 19:30:00 97.9 F [facility] Weight 2018-09-01 19:28:00 [facility] Height 2018-09-01 19:28:00 162.56 cm [facility] BMI Calculated 2018-09-01 19:28:00 Elsa theast Height 2018-08-19 19:17:00 162.56 cm [facility] BMI Calculated 2018-08-19 19:17:00 [facility] Weight 2018-08-19 19:17:00 [facility] Weight 2016-02-28 14:30:00 [facility] Height 2016-02-28 14:30:00 [facility] Heart Rate 2016-02-28 14:30:00 [facility] Diastolic (mm Hg) 2016-02-28 14:30:00 [facility] Systolic (mm Hg) 2016-02-28 14:30:00 [facility] Weight 2016-02-06 15:45:00 [facility] Height 2016-02-06 15:45:00 [facility] Temperature Oral (F) 2016-02-06 15:45:00 97.8 F [facility] Heart Rate 2016-02-06 15:45:00 [facility] Diastolic (mm Hg) 2016-02-06 15:45:00 [facility] Systolic (mm Hg) 2016-02-06 15:45:00 [facility] Systolic (mm Hg) 2014-01-18 13:55:00 [facility] Respitory Rate 2014-01-18 13:55:00 Elsa theast Heart Rate 2014-01-18 13:55:00 [facility] Diastolic (mm Hg) 2014-01-18 13:55:00 [facility] BMI Calculated 2014-01-18 11:36:00 Elsa [facility]ast Weight 2014-01-18 11:36:00 [facility] Height 2014-01-18 11:36:00 162.56 cm [facility] Respitory Rate 2014-01-18 11:36:00 Elsa theast Heart Rate 2014-01-18 11:36:00 [facility] Systolic (mm Hg) 2014-01-18 11:36:00 [facility] Diastolic (mm Hg) 2014-01-18 11:36:00 [facility] Temperature Oral (F) 2014-01-18 11:36:00 98.3 F [facility] Weight 2013-03-18 16:20:00 [facility] Height 2013-03-18 16:20:00 162.56 cm [facility] Procedures Procedure Date / Time Performed Performing Clinician Sour e Hysterectomy 1971-08-30 00:00:00 [facility] Tonsillectomy and adenoidectomy 1949-08-30 00:00:00 [facility] Cholecystectomy [facility] Operation [facility] Plan of Care Planned Activity Planned Date Details Comments Source Future Scheduled Test 2020-03-30 00:00:00 INFLUENZA VACCINE [code = INFLUENZA VACCINE] [facility] Future Scheduled Test 2005 00:00:00 65+ PNEUMOCOCCAL V ACCINE (1 of 2 - PCV13) [code = 65+ PNEUMOCOCCAL VACCINE (1 of 2 - PCV13)] [facility] Future Scheduled Test 1990 00:00:00 SHINGLES VACCINES (#1) [code = SHINGLES VACCINES (#1)] [facility] Encounters Start Date/Time End Date/Time [facility] ID Source 2019-01-29 13:05:00 2019-01-29 13:48:00 Departed Emergency Room [facility] [id number] [facility] 2018-11-07 14:00:00 2018-12-07 04:59:00 OP Therapy Patients [facility] [id number] [facility] 2018-11-07 09:00:00 2018-12-06 23:59:00 Outpatient Whiteside, V ictor Qasim [id number] 2018-10-07 14:53:00 2018-11-07 04:59:00 [facility] [id number] 2018-10-07 08:53:00 2018-11-06 23:59:00 Outpatient Jerel Whiteside [id number] 2018-09-07 15:51:00 2018-10-07 05:59:00 [id number] 2018-09-07 09:51:00 2018-10-06 23:59:00 Outpatient Jerel Whiteside [id number] 2018-09-07 09:51:00 2018-10-06 23:59:00 Outpatient Jerel Whiteside [id number] 2018-09-06 11:36:00 2018-09-06 22:00:00 Day Surgery [facility] [id number] [facility] 2018-09-06 05:36:00 2018-09-06 16:00:00 Outpatient Brendon Whiteside [facility] [id number] 2018-08-19 18:58:00 2018-08-20 05:59:00 Outpatient [facility] [id number] [facility] 2018-08-19 12:58:00 2018-08-19 23:59:00 Outpatient Matti Medina [facility] [id number] 2018-05-07 07:04:00 2018-05-07 08:00:00 Departed Emergency Room [facility] [id number] [facility] 2017-12-10 21:31:00 2017-12-10 22:10:00 Departed Emergency Room [facility] [id number] [facility] 2016-10-09 20:38:00 2016-10-09 20:38:00 REFILL MHIEALT [facility] [id number] [facility] 2016-10-09 14:38:00 2016-10-09 14:38:00 Outpatient [facility] [id number] eClinicalWorks 2016-08-27 23:15:00 2016-08-27 23:15:00 RF CLIFF [facility] [id number] [facility] 2016-08-27 23:15:00 2016-08-27 23:15:00 RF CLIFF [facility] [id number] [facility] 2016-08-27 23:15:00 2016-08-27 23:15:00 RF CLIFF [facility] [id number] [facility] 2016-08-27 23:13:00 2016-08-27 23:13:00 RF MHDALEALSoto [facility] [id number] [facility] 2016-08-27 23:13:00 2016-08-27 23:13:00 RF MHMARISA [facility] [id number] [facility] 2016-08-27 23:13:00 2016-08-27 23:13:00 RF MHIEALSoto [facility] [id number] [facility] 2016-08-27 17:15:00 2016-08-27 17:15:00 Outpatient [facility] [id number] eClinicalWorks 2016-08-27 17:13:00 2016-08-27 17:13:00 Outpatient [facility] [id number] eClinicalWorks 2016-02-28 15:30:00 2016-02-28 15:30:00 echo results MHDALEALT [facility] [id number] [facility] 2016-02-28 15:30:00 2016-02-28 15:30:00 echo results DALEALT [facility] [id number] [facility] 2016-02-28 15:30:00 2016-02-28 15:30:00 echo results MHDALEALT [facility] [id number] [facility] 2016-02-28 14:30:00 2016-02-28 14:30:00 echo results DALEALT [facility] [id number] [facility] 2016-02-28 09:30:00 2016-02-28 09:30:00 Outpatient [facility] [id number] eClinicalWorks 2016-02-07 22:53:00 2016-02-07 22:53:00 Unknown DALEALT [facility] [id number] [facility] 2016-02-07 22:53:00 2016-02-07 22:53:00 Unknown CLIFF [facility] [id number] [facility] 2016-02-07 22:53:00 2016-02-07 22:53:00 Unknown CLIFF [facility] [id number] [facility] 2016-02-07 21:53:00 2016-02-07 21:53:00 Unknown CLIFF [facility] [id number] [facility] 2016-02-07 21:53:00 2016-02-07 21:53:00 Unknown CLIFF [facility] [id number] [facility] 2016-02-07 21:53:00 2016-02-07 21:53:00 Unknown CLIFF [facility] [id number] [facility] 2016-02-07 21:53:00 2016-02-07 21:53:00 Unknown CLIFF [facility] [id number] [facility] 2016-02-07 19:00:00 2016-02-07 19:00:00 CRYSTALNini [facility] [id number] [facility] 2016-02-07 19:00:00 2016-02-07 19:00:00 ARNULFOTIFFANIE [facility] [id number] [facility] 2016-02-07 19:00:00 2016-02-07 19:00:00 NYLAPEBBLESJOYCE MOISÉSDALEFABI [facility] [id number] [facility] 2016-02-07 18:00:00 2016-02-07 18:00:00 NYLAPEBBLESJOYCETIFFANIE RACHELFABI [facility] [id number] [facility] 2016-02-07 18:00:00 2016-02-07 18:00:00 NICA CORONADO [facility] [id number] [facility] 2016-02-07 16:53:00 2016-02-07 16:53:00 Outpatient [facility] [id number] eClinicalWorks 2016-02-07 13:00:00 2016-02-07 13:00:00 Outpatient [facility] [id number] eClinicalWorks 2016-02-06 16:45:00 2016-02-06 16:45:00 uti MOISÉSDALEFABI [facility] [id number] [facility] 2016-02-06 16:45:00 2016-02-06 16:45:00 uti MOISÉSDALEFABI [facility] [id number] [facility] 2016-02-06 16:45:00 2016-02-06 16:45:00 uti MOISÉSDALEFABI [facility] [id number] [facility] 2016-02-06 15:45:00 2016-02-06 15:45:00 uti MOISÉSDALEFABI [facility] [id number] [facility] 2016-02-06 15:45:00 2016-02-06 15:45:00 uti MHIEALT [facility] [id number] [facility] 2016-02-06 15:45:00 2016-02-06 15:45:00 uti MHIEALT [facility] [id number] [facility] 2016-02-06 15:45:00 2016-02-06 15:45:00 uti MHIEALT [facility] [id number] [facility] 2016-02-06 10:45:00 2016-02-06 10:45:00 Outpatient [facility] [id number] eClinicalWorks 2014-01-18 11:35:00 2014-01-18 14:12:00 [id number] 2014-01-18 06:35:00 2014-01-18 09:12:00 [id number] 2013-03-18 11:19:00 2013-03-18 13:30:00 Emergency MHIEAL T [facility] [id number] [facility] Results Test Description Test Time Test Comments Results Result Comments Source HEMATOLOGY 2018-09-06 15:58:00 0.3 [facility] 2018-09-06 15:58:00 0.2 [facility] 2018-09-06 15:58:00 2.8 [facility] 2018-09-06 15:58:00 10.0 [facility] 2018-09-06 15:58:00 86.6 [facility] H[facility] 2018-09-06 15:58:00 0.4 [facility] 2018-09-06 15:58:00 1.2 [facility] 2018-09-06 15:58:00 10.4 [facility] HEMATOLOGY 2018-09-06 15:58:00 7.4 [facility] HEMATOLOGY 2018-09-06 15:58:00 280 [facility] HEMATOLOGY 2018-09-06 15:58:00 13.4 [facility] HEMATOLOGY 2018-09-06 15:58:00 33.7 [facility] HEMATOLOGY 2018-09-06 15:58:00 12.0 [facility] HEMATOLOGY 2018-09-06 15:58:00 13.7 [facility] HEMATOLOGY 2018-09-06 15:58:00 4.39 [facility] HEMATOLOGY 2018-09-06 15:58:00 40.8 [facility] HEMATOLOGY 2018-09-06 15:58:00 Test Item MCH (test code = MCH) 31.3 pg 27.0-31.0 [facility]CC2760-40-58 15:58:0093.0[facility] RESULTS 2018-09-01 20:31:00Negative (09/01/18 2:31 PM)[facility] RESULTS 2018-09-01 20:07:00Product available (09/01/18 2:07 PM)[facility] 16:35:01Occasional /HPF *NA*(03/18/2013 11:35:01) [facility] [id number] 16:35:01Negative (03/18/2013 11:35:01) [facility] [id number] 16:35:01Small *ABN*(03/18/2013 11:35:01) [facility] [id number] 16:35:01Negative *NA*(03/18/2013 11:35:01) [facility] [id number] 16:35:01Occasional /LPF *NA*(03/18/2013 11:35:01) [facility] CenterLcuoerjtiXQAHQGZGWJ0620-51-96 16:35:01Negative (03/18/2013 11:35:01) [facility] CenterBonguwmfuKENBDXWXWE4477-05-80 16:35:01<1MH ZcglzxkndSCZQZTUZGP6539-71-04 16:35:01<1MH GbsldhnraSOZHMSISGG4166-59-75 16:35:01Negative mg/dL *NA*(03/18/2013 11:35:01) [facility] CenterHsrjksveaBACHLYCHEE3198-17-11 16:35:01Negative mg/dL *NA*(03/18/2013 11:35:01) [facility] CenterOsftktrsuJBZTIZKYHN8151-07-00 16:35:01 Negative mg/dL (03/18/2013 11:35:01) [facility] CenterMnwupoosxQVVEHSPGME4009-18-78 16:35:01 5.0[facility] CenterYihtbamlgRNUFKCDQSC5008-52-93 16:35:011.008[facility] 2013-03-18 16:35:01Clear (03/18/2013 11:35:01) [facility]
--- OUTSIDE RECORDS SUMMARY | 2020-01-24 09:45 | XMS REPORT | Summary of Care ---
Author Author [facility] Organization [facility] Address Unknown Phone Unavailable Encounter TEODORA Jorge(NINOSKA) [id number] Date(s): 08/19/18 - 08/19/18 [facility] [address] [place] [address]- Encounter Diagnosis Cardiomyopathy, unspecified (Final) - 08/26/18 Occlusion and stenosis of bilateral carotid arteries (Final) - Nonrheumatic aortic (valve) insufficiency (Final) - Abnormal findings on diagnostic imaging of heart and coronary circulation (Final) - Discharge Disposition: Home or Self Care Attending Physician: Arie Medina MD Referring Physician: Arie Medina MD Vital Signs Most recent to 1 oldest [Reference Range]: Height 162.56 cm (08/19/18 1:17 PM) Weight 63.636 kg (08/19/18 1:17 PM) Body Mass Index 24.08 m2 (08/19/18 1:17 PM) Problem List Condition Effective Dates Status Health [...] Hysterectomy 1972 Completed Tonsillectomy and adenoidectomy 1950 Comple zeus Cholecystectomy Completed Operation Completed Operation Completed Social History Social History Type Response Substance Abuse Use: None. Alcohol Never Smoking Status Never smoker; Exposure to T obacco Smoke None; Cigarette Smoking Last 365 Days No; Reg Smoking Cessation Counseli ng No entered on: 09/01/18 Assessment and Plan No data available for this section
--- OUTSIDE RECORDS SUMMARY | 2020-01-24 09:45 | XMS REPORT | Summary of Care ---
Author Author [facility] Address Unknown Phone Unavailable Encounter TEODORA Jorge(FIN) [id number] Date(s): 09/07/18 - 10/06/18 [facility] Encounter Diagnosis Unilateral primary osteoarthritis, right knee (Final) - 10/11/18 Pain in right knee (Final) - Weakness (Final) - Difficulty in walking, not elsewhere classified (Final) - Aftercare following joint replacement surgery (Final) - Presence of right artificial knee joint (Final) - Essential (primary) hypertension (Final) - Age-related osteoporosis without current pathological fracture (Final) - Discharge Disposition: Home or Self [...] Completed Social History Social History Type Response Alcohol Never Substance Abuse Use: None. Smoking Status Never smoker; Exposure to T obacco Smoke None; Cigarette Smoking Last 365 Days No; Reg Smoking Cessation Counseli ng No entered on: 09/01/18 Assessment and Plan No data available for this section
--- NOTE | 2020-01-24 10:20 | Diagnostic Imaging Report ---
EXAMINATION: WRIST 3VW RT - HOPD INDICATION: Wrist pain COMPARISON: None FINDINGS: No acute fracture or dislocation. Alignment appears anatomic. Mild scattered degenerative changes. Calcium pyrophosphate deposition associated with the triangular fibrocartilage. Soft tissues appear unremarkable. IMPRESSION: No acute osseous injury. Signed by: Sarthak Cosme MD on 01/24/2020 10:17 AM
--- NOTE | 2020-01-24 10:27 | Diagnostic Imaging Report ---
EXAMINATION: FOREARM 2 VIEW RT - HOPD INDICATION: Forearm pain COMPARISON: None FINDINGS: No acute fracture or dislocation. Alignment is anatomic. Mild scattered degenerative changes. Soft tissues appear unremarkable. Calcium pyrophosphate deposition of the triangular fibrocartilage of the wrist, better detailed on dedicated wrist radiographs. IMPRESSION: No acute osseous injury. Signed by: Sarthak Cosme MD on 01/24/2020 10:24 AM
--- NOTE | 2020-01-24 10:38 | Emergency Department Note ---
History of Present Illnes History of Present Illness Chief Complaint: General Medicine Complaints History of Present Illness This is a 79 year old female Chief Complaint OF RIGHT WRIST PAIN RATES 10/10 STARTING THIS MORNING; DENIES ANY FALL OR INJURY. PATIENT PLACED HER WRIST IN A BRACE PRIOR TO ARRIVAL AND STATES THAT SHE HAS TRIED ICING IT, AND TAKING TYLENOL. PATIENT APPEARS IN NO DISTRESS, REP EVEN AND NONLABORED . Historian: Patient Arrival Mode: Car Onset (how long ago): day(s) (2) Location: right wrist Quality: sharp Radiation: non-radiation Severity: moderate Onset quality: sudden Duration (how long): day(s) (2) Timing of current episode: constant Progression: worsening Chronicity: new Context: recent illness, recent surgery, recent immobilization, recent travel, trauma/injury, new medications, hx of DVT/PE, non-compliance w/ medications, other Relieving factors: none Exacerbating factors: none Associated symptoms: denies other symptoms Treatments prior to arrival: none Past Medical/Family History Physician Review I have reviewed the patient's past medical and family history. Any updates have been documented here. Past Medical History Recent Fever: No Clinical Suspicion of Infectio: No New/Unexplained Change in Ment: No Past Medical History: Hypertension Other Medical History: pt reports her BP goes up and down on it's own w/o meds Past Surgical History: Cholecysctectomy, Appendectomy, Hysterectomy, T&A, Lumpectomy, Orthopedic Implants Other Surgery: partial r breast removal open laporotomy w 8 lb tumor removal akillis tendonitis repair tonsilectomy adenoidectomy r foot tumor removal Social History Smoking Cessation: Never Smoker Counseling Performed: No Alcohol Use: None Any Illegal Drug Use: No TB Exposure/Symptoms: No Physically hurt or threatened: No Other Last Tetanus: UNK Is patient up to date on immun: Yes Last Flu: UTD Last Pneumovax: UTD Review of Systems Review of Systems Constitutional: no symptoms EENTM: no symptoms Cardiovascular: no symptoms Respiratory: no symptoms Gastrointestinal: no symptoms Genitourinary: no symptoms Musculoskeletal: as per HPI Neurological: no symptoms Psychological: no symptoms Endocrine: no symptoms Hematological/Lymphatic: no symptoms Review of other systems All other systems reviewed and negative. Physical Exam Related Data Allergies: Coded Allergies: iodine (Verified Allergy, Severe, anaphylaxis, 01/24/20) levofloxacin (Verified Allergy, Intermediate, achilles tendonitis, 01/24/20) sulfamethoxazole (Verified Allergy, Intermediate, heart races, 01/24/20) trimethoprim (Verified Allergy, Intermediate, heart races, 01/24/20) codeine (Verified Allergy, Unknown, 01/24/20) Triage Vital Signs Vital Signs Date Time Temp Pulse Resp B/P (MAP) Pulse Ox O2 Delivery O2 Flow Rate FiO2 01/24/20 09:51 97.4 96 18 165/86 99 Vital signs reviewed: Yes Physical Exam CONSTITUTIONAL Constitutional: well-developed, well-nourished HENT HENT: normocephalic, atraumatic, oropharynx clear/moist, nose normal HENT L/R: left ext ear normal, right ext ear normal EYES Eyes: PERRL, conjunctivae normal NECK Neck: ROM normal PULMONARY Pulmonary: effort normal, breath sounds normal CARDIOVASCULAR Cardiovascular: regular rhythm, heart sounds normal, capillary refill normal, normal rate GASTROINTESTINAL Abdominal: soft, nontender, bowel sounds normal GENITOURINARY Genitourinary: exam deferred SKIN Skin: warm, dry MUSCULOSKELETAL Musculoskeletal: tenderness (right wrist) NEUROLOGICAL Neurological: alert, oriented x 3, no gross motor or sensory deficits PSYCHOLOGICAL Psychological: mood/affect normal, judgement normal Results Imaging Imaging results reviewed: Yes Critical Care Time Subsequent provider I assumed direction of critical care for this patient from another provider of my specialty. Assessment & Plan Assessment & Plan Final Impression: (1) Acute pain due to trauma (2) Contusion of wrist, right Assessment & Plan ultram Depart Disposition: HOME, SELF-CARE Last Vital Signs Date Time Temp Pulse Resp B/P (MAP) Pulse Ox O2 Delivery O2 Flow Rate FiO2 01/24/20 09:51 97.4 96 18 165/86 99 BRE LUCAS MD January 24, 2020 10:38
== END 2020-01-24 10:57 | disposition home or self-care (01) ==
LOC: FSED 09:41
DX: M25.531 Pain in right wrist (principal); S60.211A Contusion of right wrist, initial encounter; I10 Essential (primary) hypertension
CPT/HCPCS: 99283

== ENCOUNTER 2020-05-06 13:45 | Emergency (ER) | payer MEDICARE ==
[~2020-05-06] VITALS: Ht 162.6 cm; Wt 65.8 kg
--- NOTE | 2020-05-06 13:57 | Emergency Department Note ---
History of Present Illnes History of Present Illness Chief Complaint: General Medicine Complaints History of Present Illness This is a 79 year old female, with a history of hypertension, who was out in her yard just prior to arrival, when she was tripped by one of her chickens and her dog, which caused her to fall onto the concrete ground, landing on her right side. Patient presents complaining of right lateral rib pain and right posterior rib pain, along with pain on inspiration. She denies any chest pain, shortness of breath, dizziness, or lightheadedness. Patient states that this was a simple trip and fall accident. She denies any head injury, or other injuries. Historian: Patient Arrival Mode: Car Commercial Fisher Required: No Onset (how long ago): hour(s) (2) Location: right lateral and posterior ribs Quality: sharp, stabbing, with pleuritic pain Radiation: Reports non-radiation Severity: severe (06/08) Onset quality: sudden Duration (how long): hour(s) (2) Timing of current episode: constant Progression: unchanged Chronicity: new Context: Reports trauma/injury (see HPI); Denies recent surgery, Denies non-compliance w/ medications Relieving factors: cold therapy (pt applied some ice to the area at home, without significant relief;) Exacerbating factors: movement, other (deep inspiration) Associated symptoms: Denies chest pain, Denies cough, Denies fever/chills, Denies nausea/vomiting, Denies shortness of breath, Denies syncope, Denies weakness Treatments prior to arrival: cold therapy Risk factors: elderly, probable osteopenia/osteoporosis Past Medical/Family History Physician Review I have reviewed the patient's past medical and family history. Any updates have been documented here. Past Medical History Recent Fever: No Clinical Suspicion of Infectio: No New/Unexplained Change in Ment: No Past Medical History: Hypertension Other Medical History: pt reports her BP goes up and down on it's own w/o meds Past Surgical History: Cholecysctectomy, Appendectomy, Hysterectomy, T&A, Lumpectomy, Orthopedic Implants Other Surgery: partial R breast removal open laporotomy w 8 lb tumor removal achiles tendon repair tonsilectomy adenoidectomy r foot tumor removal Social History Smoking Cessation: Never Smoker Alcohol Use: None Any Illegal Drug Use: No TB Exposure/Symptoms: No Physically hurt or threatened: No Family History Family history of heart diseas: No Other Last Tetanus: UNK Any Pre-Existing Lines (PICC,: No Is patient up to date on immun: No Review of Systems Review of Systems Constitutional: Denies chills, Denies fever, Denies weakness EENTM: Reports no symptoms Cardiovascular: Denies chest pain, Denies edema, Denies palpitations, Denies syncope Respiratory: Reports pain on inspiration (since fall, today;); Denies cough, Denies hemoptysis, Denies pain with cough, Denies dyspnea, Denies dyspnea on exertion Gastrointestinal: Denies abdominal pain, Denies nausea, Denies other Genitourinary: Denies dysuria, Denies frequency Musculoskeletal: Reports back pain (right upper, below the right scapula;) Integumentary: Denies change in color, Denies rash Neurological: Denies headache, Denies numbness, Denies tingling Endocrine: Reports no symptoms Hematological/Lymphatic: Reports no symptoms Review of other systems: All other systems negative Physical Exam Related Data Allergies: Coded Allergies: iodine (Verified Allergy, Severe, anaphylaxis, 01/24/20) levofloxacin (Verified Allergy, Intermediate, achilles tendonitis, 01/24/20) sulfamethoxazole (Verified Allergy, Intermediate, heart races, 01/24/20) trimethoprim (Verified Allergy, Intermediate, heart races, 01/24/20) codeine (Verified Allergy, Unknown, 01/24/20) Vital signs reviewed: Yes Physical Exam CONSTITUTIONAL Constitutional: Present well-developed, Present well-nourished, Present other (appears to be uncomfortable;); Absent distressed, Absent ill appearing HENT HENT: Present normocephalic, Present atraumatic, Present oropharynx clear/m oist, Present nose normal HENT L/R: Present left ext ear normal, Present right ext ear normal EYES Eyes: Reports PERRL, Reports conjunctivae normal NECK Neck: Present ROM normal, Present supple; Absent thyromegaly, Absent cervical adenopathy PULMONARY Pulmonary: Present effort normal CARDIOVASCULAR Cardiovascular: Present regular rhythm, Present heart sounds normal, Present capillary refill normal, Present normal rate; Absent murmur GASTROINTESTINAL Abdominal: Present soft, Present nontender, Present bowel sounds normal; Absent distension, Absent tender GENITOURINARY SKIN Skin: Present warm, Present dry, Present other (large abrasion of the right lateral chest and right upper, posterior back;); Absent rash MUSCULOSKELETAL Musculoskeletal: Present ROM normal, Present tenderness (ttp of right lateral ribs and right posterior ribs;) NEUROLOGICAL Neurological: Present alert, Present oriented x 3, Present no gross motor or sensory deficits PSYCHOLOGICAL Psychological: Present mood/affect normal, Present judgement normal Results Imaging Imaging results reviewed: Yes Impressions [place] [id number] Patient Name: ROBERTO NIETO MR #: [id number] : 1940 Age/Sex: 79/F Req #: [id number] Adm Physician: Ordered by: GILDA GUZMAN MD Report #: [id number] Location: [facility] Room/Bed: Procedure: [id number] HOPD/RIBS UNILAT W/CXR- HOPD Exam Date: 05/06/20 Exam Time: 1420 REPORT STATUS: Signed EXAMINATION: RIBS UNILAT W/CXR- HOPD INDICATION: Fall onto right ribs. COMPARISON: None FINDINGS: TUBES and LINES: None. LUNGS: Normal lung volumes. Lungs are clear. No consolidations. PLEURA: No pleural effusion or pneumothorax. HEART AND MEDIASTINUM: The cardiomediastinal silhouette is unremarkable. BONES AND SOFT TISSUES: No acute osseous lesion. Soft tissues are unremarkable. UPPER ABDOMEN: No free air under the diaphragm. IMPRESSION: 1. No displaced rib fracture. 2. No focal consolidation, pleural effusion or pneumothorax. Signed by: Derick Garces MD on 05/06/2020 2:36 PM Dictated By: DERICK GARCES MD [id number] Transcribed By: NIRAJ on 05/06/20 [id number] COPY TO: GILDA GUZMAN MD~ Diagnostics Tests Diagnostic test(s) reviewed: Yes Assessment & Plan Medical Decision Making MDM - In addition to the tramadol prescribed, he may take extra strength Tylenol 500 mg2 tablets every 4 hours as needed for pain. You may also take Aleve 1 tablet twice daily with food, as needed for pain and inflammation. STOP the Aleve if your develop abdominal pain. - It is VERY important that you take good deep breaths, to the point that you have pain, in order to keep the lungs are fully expanded, which will help to prevent pneumonia. You should try and perform 4-6 DEEP breaths at least 4 times per hour, while awake. - Return to the emergency room if you develop worsening pain or significant difficulty or worsening pain with breathing. - Recommended he apply ice to the right ribs frequently throughout the day, for the next 48 hours. After that, you may apply heat. - Clean the abrasions on the right lateral chest and right back area with soap and water daily, and then apply antibiotic ointment, and observe closely for any signs or symptoms of infection including redness, drainage, swelling or increased pain. Assessment & Plan Final Impression: (1) Contusion of rib on right side (2) Rib pain on right side (3) Fall (on)(from) sidewalk curb, initial encounter (4) Acute pain due to trauma (5) Hypertension Depart Disposition: HOME, SELF-nursing home Meds Active Scripts Tramadol Hcl (ULTRAM) 50 Mg Tablet, 1-2 TAB PO Q6H PRN for pain, #20 TAB 0 [address]ills [address] take and drive or operate machinery Prov:GILDA GUZMAN MD 05/06/20 GILDA GUZMAN MD May 06, 2020 13:57
[2020-05-06] MEDS ORDERED: ACETAMINOPHEN 325 MG TAB PO ONE (14:15)
--- NOTE | 2020-05-06 14:40 | Diagnostic Imaging Report ---
EXAMINATION: RIBS UNILAT W/CXR- HOPD INDICATION: Fall onto right ribs. COMPARISON: None FINDINGS: TUBES and LINES: None. LUNGS: Normal lung volumes. Lungs are clear. No consolidations. PLEURA: No pleural effusion or pneumothorax. HEART AND MEDIASTINUM: The cardiomediastinal silhouette is unremarkable. BONES AND SOFT TISSUES: No acute osseous lesion. Soft tissues are unremarkable. UPPER ABDOMEN: No free air under the diaphragm. IMPRESSION: 1. No displaced rib fracture. 2. No focal consolidation, pleural effusion or pneumothorax. Signed by: Kg Mcneill MD on 05/06/2020 2:36 PM
[2020-05-06] MEDS ORDERED: ULTRAM50 MG PO (14:53)
--- OUTSIDE RECORDS SUMMARY | 2020-05-06 15:17 | XMS REPORT | Clinical Summary ---
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
--- OUTSIDE RECORDS SUMMARY | 2020-05-06 15:18 | XMS REPORT | Continuity of Care Document ---
Author Author [employer], ROBERTO JOHNSTON Organization [employer] Address Unknown Phone Unavailable Care Team Providers Care Sample Hand Name Role Phone [employer] Unavailable Un available Problems Problem Status Onset Date Classification Date Reported Comments Source Unilateral primary osteoarthritis, right knee 10/12/2018 04/26/2019 [facility] [place] M17.11 Active 09/07/2018 [facility] [place] S/P RT KNEE Active 09/06/2018 [facility] [place] RT KNEE PAIN Active 09/06/2018 [facility] [place] Cardiomyopathy, unspecified 08/27/2018 03/09/2019 [facility] DX: I42.9/ I65.23 Active 08/18/2018 [facility] TOTAL KNEE Active 08/16/2018 [facility] Discharge Diagnosis: Wrist sprain 01/18/2014 01/21/2014 [facility] LEFT ARM PAIN Active 01/18/2014 [facility] UTI Active 0 03/18/2013 [facility] Achilles tendonitis Active Problem 10/10/2016 [facility] Pericardial effusion Active Diagnosis 03/04/2016 [facility] Vitamin D deficiency Active Problem 10/10/2016 [facility] Essential hypertension Active Diagnosis 10/10/2016 [facility] Rosacea Active Problem 10/10/2016 [facility] Prediabetes Active Problem 10/10/2016 [facility] Hx of deep venous thrombosis A ctive Problem 06/2017 [facility] Hyperlipidemia, unspecified Ac tive Problem 06/2017 [facility] Osteoarthrosis Active Problem 10/10/2016 [facility] Abnormal EKG Active Diagnosis 02/11/2016 [facility] Urinary tract infection Active Diagnosis 02/08/2016 [facility] Frequent urination Active Diagnosis 02/08/2016 [facility] RENA positive Active Diagnosis 03/04/2016 [facility] Achilles tendinitis (disorder) Resolved Problem [facility] [place] Deep venous thrombosis (disorder) Resolved Problem [facility] [place] Hyperlipidemia (disorder) Reso lved Problem [facility] [place] Hypertensive disorder, systemic arterial (disorder) Active Problem 04/26/2019 [facility] Achilles tendinitis Resolved Problem 03/20/2013 [facility] Hyperlipidemia Resolved Problem 03/20/2013 [facility] Hypertension Resolved Problem 03/20/2013 [facility] Pain in right knee 04/26/2019 [facility] [place] Weakness 04/26/2019 [facility] Difficulty in walking, not elsewhere classified 04/26/2019 [facility] Aftercare following joint replacement surgery 04/26/2019 [facility] Presence of right artificial knee joint 04/26/2019 [facility] Essential (primary) hypertension 04/26/2019 [facility] [place] Age-related osteoporosis without current pathological fracture 04/26/2019 [facility] Occlusion and stenosis of bilateral carotid arteries 03/09/2019 [facility] Nonrheumatic aortic (valve) insufficiency 03/09/2019 [facility] Abnormal findings on diagnostic imaging of heart and coronary circulation 03/09/2019 [facility] Personal history of other venous thrombo sis and embolism 03/26/2019 [facility] Medications Medication Details Route Status Patient Instructions Ordering Provider Order Date Source Lunesta 3 mg, Route: PO, Bedti me, Dosing Weight 65, kg, Start date: 09/06/18 21:00:00 [employer], Duration: 30 day, Stop date: 10/05/18 21:00:00 [employer] Inactive 09/07/2018 [facility] Cefazolin 1 gm, Route: IVPB, D rug form: INJ, Q6H, Dosing Weight 65, kg, Start date: 09/06/18 12:00:00 [employer]ENT[employer], Duration: 3 doses or times, Stop date: 09/07/18 0:00:00 [employer]ENT[employer], ABX Indication: Surgical Prophylaxis Inactive 09/06/2018 [facility] Flumazenil 0.2 mg, Route: IVP, PRN, Dosing Weight 65, kg, PRN Benzodiazepine Reversal, Initial dose, Start date: 09/06/18 10:40:00 [employer], Duration: 30 day, Stop date: 10/06/18 10:39:00 [employer]ENTATIVE Inactive 09/06/2018 [facility] Fentanyl 50 microgram, Route: IVP, Q5Min, Dosing Weight 65, kg, PRN Pain Score 7-10, Priority: Routine, Start date: 09/06/18 10:40:00 [employer]ENT[employer], Duration: 2 doses or times, Stop date: Limited # of times Inactive 09/06/2018 [facility] Oxycodone 5 mg, Route: PO, Abner g form: LIQ, Q4H, Dosing Weight 65, kg, PRN Pain Score 7-10, Start date: 09/06/18 10:40:00 [employer]PRESENTATIVE, Duration: 30 day, Stop date: 10/06/18 10:39:00 [employer]PRESENTATIVE Inactive 09/06/2018 [facility] Dexamethasone 4 mg, Route: IVP , ONCE, Dosing Weight 65, kg, PRN Nausea & Vomiting, Start date: 09/06/18 10:40:00 [employer]PRESENTATIVE Inactive 09/06/2018 [facility] Ondansetron 4 mg, Route: IVP, ONCE, Dosing Weight 65, kg, PRN Nausea & Vomiting, Start date: 09/06/18 10:40:00 [employer]PRESENTATIVE Inactive 09/06/2018 [facility] Naloxone 0.4 mg, Route: IVP, Q 2MIN, Dosing Weight 65, kg, PRN Narcotic Reversal, Start date: 09/06/18 10:40:00 [employer]PRESENT[employer]IVE, Duration: 8 doses or times, Stop date: Limited # of times Inactive 09/06/2018 [facility] Albuterol 0.83 MG/ML Inhalant Solution 2.49 mg, Route: NEB, Q20Min, Dosing Weight 65, kg, PRN Wheezing, Priority: STAT, Start date: 09/06/18 10:40:00 [employer]ENT[employer]IVE, Duration: 30 day, Stop date: 10/06/18 10:39:00 [employer] REPRESENTATIVE Inactive 09/06/2018 [facility] Enoxaparin 30 mg, Route: SUB-Q , Drug form: INJ, [id number], Dosing Weight 65, kg, Start date: 09/06/18 10:00:00 [employer]PRESENTATIVE, Duration: 30 day, Stop date: 10/05/18 22:00:00 [employer] REPRESENTATIVE Inactive 09/06/2018 [facility] hydrALAZINE (ANES) Route: IV, Drug form: INJ, ONCE, Stop date: 09/06/18 9:10:00 [employer]PRESENTATIVE Inactive 09/06/2018 [facility] enalapril (ANES) Route: IV, Dr ug form: INJ, ONCE, Stop date: 09/06/18 9:10:00 [employer]PRESENTATIVE Inactive 09/06/2018 [facility] glycopyrrolate (ANES) Route: I V, Drug form: INJ, ONCE, Stop date: 09/06/18 9:10:00 [employer]PRESENTATIVE Inactive 09/06/2018 [facility] neostigmine (ANES) Route: IV, Drug form: INJ, ONCE, Stop date: 09/06/18 9:10:00 [employer]ENT[employer]IVE Inactive 09/06/2018 [facility] Acetaminophen 325 MG / Hydrocodone Thu trate 7.5 MG Oral Tablet [[place] 7.5/325] 2 tab, Route: PO, Drug Form: TAB, Dosing Weight 65, kg, Q4H, PRN Pain Score 7-10, Start date: 09/06/18 9:01:00 [employer], Duration: 30 day, Stop date: 10/06/18 9:00:00 [employer] REPRESENTATIVE Inactive 09/06/2018 [facility] Tylenol 100.4 F, Start date: 09/06/18 9:01:00 [employer]ENT[employer]IVE, Duration: 30 day, Stop date: 10/06/18 9:00:00 [employer] REPRESENTATIVE Inactive 09/06/2018 [facility] Lactated Ringers IV 1000 mL 1, 000 mL, Rate: 75 ml/hr, Infuse over: 13.3 hr, Route: IV, Dosing Weight 65 kg, Total Volume: 1,000, Start date: 09/06/18 9:01:00 [employer]ENTATIVE, Duration: 30 day, Stop date: 10/06/18 9:00:00 [employer] REPRESENTATIVE, 1.73, m2 Inactive 09/06/2018 [facility] metoprolol (ANES) Route: IV, D rug form: INJ, ONCE, Stop date: 09/06/18 8:41:00 [employer] REPRESENTATIVE Inactive 09/06/2018 [facility] dexamethasone (ANES) Route: IV , Drug form: INJ, ONCE, Stop date: 09/06/18 8:31:00 [employer] REPRESENTATIVE Inactive 09/06/2018 [facility] rocuronium (ANES) Route: IV, D rug form: INJ, ONCE, Stop date: 09/06/18 8:31:00 [employer] REPRESENTATIVE Inactive 09/06/2018 [facility] lidocaine (ANES) Route: IV, Dr ug form: INJ, ONCE, Stop date: 09/06/18 8:31:00 [employer] REPRESENTATIVE Inactive 09/06/2018 [facility] metoclopramide (ANES) Route: I V, Drug form: INJ, ONCE, Stop date: 09/06/18 8:26:00 [employer] REPRESENTATIVE Inactive 09/06/2018 [facility] ondansetron (ANES) Route: IV, Drug form: INJ, ONCE, Stop date: 09/06/18 8:26:00 [employer] REPRESENTATIVE Inactive 09/06/2018 [facility] ceFAZolin (ANES) Route: IV, Dr ug form: INJ, ONCE, Stop date: 09/06/18 8:16:00 [employer] REPRESENTATIVE Inactive 09/06/2018 [facility] propofol (ANES) Route: IV, Abner g form: INJ, ONCE, Stop date: 09/06/18 8:11:00 [employer] REPRESENTATIVE Inactive 09/06/2018 [facility] fentaNYL (ANES) Route: IV, Abner g form: INJ, ONCE, Stop date: 09/06/18 8:11:00 [employer] REPRESENTATIVE Inactive 09/06/2018 [facility] midazolam (ANES) Route: IV, Dr ug form: SOLN, ONCE, Stop date: 09/06/18 8:11:00 [employer] REPRESENTATIVE Inactive 09/06/2018 [facility] Lactated Ringers Injection IV (ANES) 1000 mL Route: IV, Total Volume: 1,000, Start date: 09/06/18 7:38:00 [employer] REPRESENTATIVE, Stop date: 09/06/18 8:38:00 [employer] REPRESENTATIVE Inactive 09/06/2018 [facility] tramadol hydrochloride 50 MG Oral Tablet [Ultram] 50 mg = 1 tab, PO, Q12H, PRN for pain, X 30 day, # 60 tab, 0 Refill(s) No Longer Active 09/06/2018 [facility] Lactated Ringers IV 1,000 mL 1 ,000 mL, Rate: 40 ml/hr, Infuse over: 25 hr, Route: IV, Dosing Weight 65 kg, Total Volume: 1,000, Start date: 09/06/18 6:31:00 [employer] REPRESENTATIVE, Duration: 1 day, Stop date: 09/07/18 6:30:00 [employer] REPRESENTATIVE, 1.73, m2 Inactive 09/06/2018 [facility] ropivacaine 100 mL, Route: InF ILtration(local), Drug Form: INJ, Dosing Weight 65, kg, ONCALL, Start date: 09/06/18 6:00:00 [employer] REPRESENTATIVE, Duration: 30 day, Stop date: 10/06/18 5:59:00 [employer] REPRESENTATIVE Inactive 09/06/2018 [facility] gabapentin 300 mg, Route: PO, ONCALL, Dosing Weight 65, kg, Start date: 09/06/18 6:00:00 [employer] REPRESENTATIVE, Duration: 30 day, Stop date: 10/06/18 5:59:00 [employer] REPRESENTATIVE Inactive 09/06/2018 [facility] celecoxib 90 mL/min), Start d ate: 09/06/18 6:00:00 [employer] REPRESENTATIVE, Duration: 30 day, Stop date: 10/06/18 5:59:00 [employer] REPRESENTATIVE Inactive 09/06/2018 [facility] 0.3 ML Enoxaparin sodium 100 MG/ML Prefi lled Syringe [Lovenox] 30 mg, SUB-Q, BID, Complete all the inje ctions, X 14 day, # 28 inj, 0 Refill(s) No Longer Active 09/06/2018 [facility] Cephalexin 500 MG Oral Capsule [Keflex] 500 mg = 1 cap, PO, QID, X 10 day, # 40 cap, 0 Refill(s) No Longer Active 09/06/2018 [facility] ropivacaine Notes: NOT FOR IV use Ropivacaine 5 mg/mL (49.25 mL) Epinephrine 1 mg/mL (0.5 mL) Clonidine 0.1 mg/mL (0.8 mL) Ketorolac 30 mg/mL (1 mL) Normal Saline 48.45 mL Inactive 09/06/2018 [facility] Losartan PO, Daily, 0 Refill(s) Active 09/01/2018 [facility] Vitamin D2 50,000 intl units oral capsule 50,000 IntlUnit = 1 cap, PO, QWed, 0 Refill(s) Active 09/01/2018 [facility] Folic Acid Daily, 0 Refill(s) Active 09/01/2018 [facility] Vitamin B12 0 Refill(s) Active 09/01/2018 [facility] Centrum Adults oral tablet PO, Daily, 0 Refill(s) Active 09/01/2018 [facility] Bactrim DS 1 tablet Orally Active 800-160 MG Orally twice a day Patricia 02/06/2016 [facility] Naproxen Sodium 1 tablet Orally Active 550 MG Orally as needed (prn) Patricia 02/01/2014 [facility] tramadol hydrochloride 50 MG Oral Tablet [Ultram] 50 mg = 1 tab, PO, Q4H, pain, # 20 tab, 0 Refill(s) Active 01/18/2014 [facility] naproxen 500 mg oral tablet 50 0 mg = 1 tab, PO, BID, Pain, # 30 tab, 0 Refill(s) Active 01/18/2014 [facility] lisinopril 20 mg oral tablet 2 0 mg = 1 tab, PO, Daily, # 30 tab, 0 Refill(s) Active 01/18/2014 [facility] pravastatin 40 mg oral tablet 40 mg = 1 tab, PO, Bedtime, # 30 tab, 0 Refill(s) Active 01/18/2014 [facility] Macrobid 100 mg oral capsule 1 00 mg, 1 cap, PO, BID, 20 cap, Substitution Allowed, CAP PO Active [facility] 03/18/2013 [facility] Pravastatin Sodium 1 tablet Orally Active 40 MG Orally Once a day (MUST SEE DOCTOR BEFORE NEXT REFILL) Patricia [facility] Lisinopril 1 tablet by mouth Active 20 mg by mouth once a d ay (MUST SEE DOCTOR BEFORE NEXT REFILL) [facility] Zyrtec Allergy 1 tablet Orally Active 10 MG Orally Once a day Patricia [facility] Allergies, Adverse Reactions, Alerts Substance Category Reaction Severity Reaction type Status Date Reported Comments Source shellfish Adverse Reaction Info Not Available Adverse Reaction Active 02/28/2016 [facility] Iodine Adverse Reaction Info Not Available Adverse Reaction Active 02/28/2016 [facility] Codeine Sulfate Adverse Reacti on Info Not Available Adverse Reaction Active 02/28/2016 [facility] codeine Assertion Drug allergy Active [facility] [place] iodine Assertion Drug allergy Active [facility] [place] Immunizations No Data Provided for This Section Results Order Name Results Value Reference Range Date Interpretation Comments Source HEMATOLOGY Monocytes # 0.3 0.0 - 0.8 09/06/2018 [facility] HEMATOLOGY Eosinophils 0.2 0.0 - 4.0 09/06/2018 [facility] Monocytes 2.8 2.0 - 12.0 09/06/2018 [facility] Lymphocytes 10.0 20.0 - 40.0 09/06/2018 [facility] Segs 86.6 45.0 - 75.0 09/06/2018 [facility] Basophils 0.4 0.0 - 1.0 09/06/2018 [facility] Lymphocytes # 1.2 1.0 - 5.5 09/06/2018 [facility] Neutrophils # 10.4 1.5 - 8.1 09/06/2018 [facility] MPV 7.4 7.4 - 10.4 09/06/2018 [facility] Platelet 280 133 - 450 09/06/2018 [facility] RDW 13.4 11.5 - 14.5 09/06/2018 [facility] MCHC 33.7 32.0 - 36.0 09/06/2018 [facility] WBC 12.0 3.7 - 10.4 09/06/2018 [facility] Hgb 13.7 12.0 - 16.0 09/06/2018 [facility] RBC 4.39 4.20 - 5.40 09/06/2018 [facility] Hct 40.8 36.0 - 48.0 09/06/2018 [facility] MCH 31.3 27.0 - 31.0 09/06/2018 [facility] MCV 93.0 80.0 - 98.0 09/06/2018 [facility] BLOOD BANK RESULTS Antibody Scrn Negative (09/01/18 2:31 PM) 09/01/2018 [facility] BLOOD BANK RESULTS ABO/Rh B POS 09/01/2018 [facility] BLOOD [facility] RESULTS RBC product Product available (09/01/18 2:07 PM) 09/01/2018 [facility] URINALYSIS UA Urobilinogen 0.1 - 1.0 03/18/2013 [facility] URINALYSIS UA Color Ltyellow 03/18/2013 [facility] URINALYSIS UA Bacteria Occas ional /HPF *NA* (03/18/2013 11:35:01) None S een 03/18/2013 [facility] URINALYSIS UA Nitrite Negat enoc (03/18/2013 11:35:01) Negati ve 03/18/2013 Normal [facility] URINALYSIS UA Blood Small *ABN* (03/18/2013 11:35:01) Negati ve 03/18/2013 ABN [facility] URINALYSIS UA Bili Negat enoc *NA* (03/18/2013 11:35:01) Negati ve 03/18/2013 NA [facility] URINALYSIS UA Sq Epi Occas ional /LPF *NA* (03/18/2013 11:35:01) Few 03/18/2013 NA [facility] URINALYSIS UA Leuk Est Negat enoc (03/18/2013 11:35:01) Negati ve 03/18/2013 Normal [facility] URINALYSIS UA RBC <1 0 - 2 03/18/2013 Normal [facility] URINALYSIS UA WBC <1 0 - 5 03/18/2013 Normal [facility] URINALYSIS UA Ketones Negat enoc mg/dL *NA* (03/18/2013 11:35:01) Negati ve 03/18/2013 NA [facility] URINALYSIS UA Glucose Negat enoc mg/dL *NA* (03/18/2013 11:35:01) Negati ve 03/18/2013 NA [facility] URINALYSIS UA Protein Negat enoc mg/dL (03/18/2013 11:35:01) Negati ve 03/18/2013 Normal [facility] URINALYSIS UA pH 5.0 5.0 - 8.0 03/18/2013 Normal [facility] URINALYSIS UA Spec Grav 1.008 <=1.030 03/18/2013 Normal [facility] URINALYSIS UA Turbidity Clear (03/18/2013 11:35:01) Clear 03/18/2013 Normal [facility] Pathology Reports No Data Provided for This Section Diagnostic Reports Report Value Date Source Knee 1-2 Views unilateral DX P atient Name: ROBERTO NIETO : 1940; Age: 77 years y/o Female MR: [id number] * RIGHT KNEE, postoperative 2 views HISTORY: [...] good position without evidence of complication. SL: [id number] 09/06/2018 [facility] Chest 2 views DX Clinical Denise cation: Coughing - pre-op Comparison: None FINDINGS: The PA and lateral chest radiographs shows normal lung volumes without interstitial or airspace opacities, pleural effusions or pneumothorax. The heart size and pulmonary vasculature are normal. The trachea is midline. There are no clinically significant osseous abnormalities noted. IMPRESSION: No chest radiographic evidence of acute cardiopulmonary disease. SL: [id number] 09/01/2018 [facility] Carotid artery Doppler bilat US Clinical [...] low, or Variable undetectable SL: [id number] 08/19/2018 [facility] Wrist complete ( min.3 views) PORTABLE LEFT WRIST, 3 VIEWS. INDICATION: Pain, sprain. Osteopenia is noted. No fracture is evident. There are calcifications in the region of the triangular fibrocartilage. Intercarpal articulations are not remarkable. Degenerative changes involve the first carpometacarpal articulation. SL: 12 01/18/2014 [facility] Consultation Notes No Data Provided for This Section Discharge Summaries No Data Provided for This Section History and Physicals No Data Provided for This Section Vital Signs Vital Sign Value Date Comments Source Systolic (mm Hg) 128 09/06/2018 [facility] Diastolic (mm Hg) 66 09/06/2018 [facility] Systolic (mm Hg) 110 09/06/2018 [facility] Diastolic (mm Hg) 51 09/06/2018 [facility] Systolic (mm Hg) 103 09/06/2018 [facility] Diastolic (mm Hg) 46 09/06/2018 [facility] Respitory Rate 12 09/06/2018 [facility] Respitory Rate 15 09/06/2018 [facility] Respitory Rate 22 09/06/2018 [facility] Heart Rate 76 09/01/2018 [facility] Temperature Oral (F) 97.9 F 09/01/2018 [facility] Weight 65 0 09/01/2018 [facility] Height 162.56 cm 09/01/2018 [facility] BMI Calculated 24.6 09/01/2018 [facility] Height 162.56 cm 08/19/2018 [facility] BMI Calculated 24.08 08/19/2018 [facility] Weight 63.636 08/19/2018 [facility] Weight 136 02/28/2016 [facility] Height 64 0 02/28/2016 [facility] Heart Rate 74 02/28/2016 [facility] Diastolic (mm Hg) 70 02/28/2016 [facility] Systolic (mm Hg) 150 02/28/2016 [facility] Weight 137 02/06/2016 [facility] Height 64 0 02/06/2016 [facility] Temperature Oral (F) 97.8 F 02/06/2016 [facility] Heart Rate 76 02/06/2016 [facility] Diastolic (mm Hg) 70 02/06/2016 [facility] Systolic (mm Hg) 156 02/06/2016 [facility] Systolic (mm Hg) 148 01/18/2014 [facility] Respitory Rate 18 01/18/2014 [facility] Heart Rate 78 01/18/2014 [facility] Diastolic (mm Hg) 77 01/18/2014 [facility] BMI Calculated 24.94 01/18/2014 [facility] Weight 65.909 01/18/2014 [facility] Height 162.56 cm 01/18/2014 [facility] Respitory Rate 20 01/18/2014 [facility] Heart Rate 77 01/18/2014 [facility] Systolic (mm Hg) 153 01/18/2014 [facility] Diastolic (mm Hg) 80 01/18/2014 [facility] Temperature Oral (F) 98.3 F 01/18/2014 [facility] Weight 63.636 03/18/2013 [facility] Height 162.56 cm 03/18/2013 [facility] Encounters Location Location Details Encounter Type Encounter Number Reason For Visit Attending Provider ADM Date DC Date Status Source [facility] Emergency [id number] GORDONNATE CARVALHOBLUE 03/18/2013 03/18/2013 Discharged [facility] [id number] [facility] 01/18/2014 01/18/2014 [facility] [place] [id number] 02/06/2016 02/06/2016 [facility] [place] [id number] 02/06/2016 02/06/2016 [facility] [place] [id number] 02/06/2016 02/06/2016 [facility] [place] [id number] 02/06/2016 02/06/2016 [facility] [place] [id number] 02/06/2016 02/06/2016 [facility] [place] [id number] 02/06/2016 02/06/2016 [facility] [place] [id number] 02/06/2016 02/06/2016 [facility] NICA [id number] 02/07/2016 02/07/2016 [facility] NICA [id number] 02/07/2016 02/07/2016 [facility] NICA [id number] 02/07/2016 02/07/2016 [facility] NICA [id number] 02/07/2016 02/07/2016 [facility] NICA [id number] 02/07/2016 02/07/2016 [facility] Unknown [id number] 02/07/2016 02/07/2016 [facility] Unknown [id number] 02/07/2016 02/07/2016 [facility] Unknown [id number] 02/07/2016 02/07/2016 [facility] Unknown [id number] 02/07/2016 02/07/2016 [facility] Unknown [id number] 02/07/2016 02/07/2016 [facility] Unknown [id number] 02/07/2016 02/07/2016 [facility] Unknown [id number] 02/07/2016 02/07/2016 [facility] echo results [id number] 02/28/2016 02/28/2016 [facility] echo results [id number] 02/28/2016 02/28/2016 [facility] echo results [id number] 02/28/2016 02/28/2016 [facility] echo results [id number] 02/28/2016 02/28/2016 [facility] RF [id number] 08/27/2016 08/27/2016 [facility] RF [id number] 08/27/2016 08/27/2016 [facility] RF [id number] 08/27/2016 08/27/2016 [facility] RF [id number] 08/27/2016 08/27/2016 [facility] [id number] 08/27/2016 08/27/2016 [facility] [id number] 08/27/2016 08/27/2016 [facility] REFILL [id number] 10/09/2016 10/09/2016 [facility] [id number] Arie Medina 08/19/2018 08/20/2018 [facility] Day [facility] [id number] Raz Whiteside 09/06/2018 09/06/2018 [facility] Therapy Patients [id number] Raz Whiteside 09/07/2018 10/07/2018 [facility] OP Therapy Patients [id number] Raz Whiteside 10/07/2018 11/07/2018 [facility] OP Therapy Patients [id number] Raz Whiteside 11/07/2018 12/07/2018 [facility] Procedures Procedure Code Date Perfomer Comments Source Hysterectomy [id number] 08/30/1971 [facility] Tonsillectomy and adenoidectomy [id number] 08/30/1949 [facility] Cholecystectomy [id number] [facility] [id number] [facility] Assessment and Plan No Data Provided for This Section Plan of Care No Data Provided for This Section Social History Social History Date Source Social History TypeResponse Substance Abuse Use: None. Alcohol Never Smoking Status Never smoker; Exposure to Tobacco Smoke None; Cigarette Smoking Last 365 Days No; Reg Smoking Cessation Counseling No entered on: 09/01/18 09/01/2018 [facility] Social History TypeResponse Alcohol Never Substance Abuse Use: None. Smoking Status Never smoker; Exposure to Tobacco Smoke None; Cigarette Smoking Last 365 Days No; Reg Smoking Cessation Counseling No entered on: 09/01/18 09/01/2018 [facility] Social History ElementQualifiersDate Rep orted Occupation: employed. [...] 28, 2016 Ethnicity . Status , Is slovenian your carmen bhumi language? Yes February 28, [...]
--- OUTSIDE RECORDS SUMMARY | 2020-05-06 15:18 | XMS REPORT | Continuity of Care Document ---
Author Author [facility] t Organization [facility] Address [address] [place] [address] Phone Unavailable Care Team Providers Care Director Of Advertising Sales Name Role Phone ARIE MEDINA PCP Fabi GUZMAN Attphys Unavailable BRE LUCSA Attphys Unavailable Qasim Whiteside Attphys Arie Medina Attphys Elsa Roth Attphys Payers Payer Name Policy Type Policy Number Effective Date Expiration Date S sheryl [facility] Mcr NA 2018 00:00:00 [facility] Ppo [id number] [facility] Problems Condition Name Condition Details Condition Category Status Onset Date Resolution Date Last Treatment Date Treating Clinician Comments Source M17.11 M17. 11 Active 09/07/2018 [facility] [place] Diagnosis Active 2018-09-07 08:00:00 2018-11-07 10:10:00 Joan Hernandez S/P RT KNEE S/P RT KNEE Active 09/06/2018 [facility] [place] Diagnosis Active 2018-09-06 08:00:00 2018-09-07 10:11:00 Joan Hernandez RT KNEE PAIN RT K NEE PAIN Active 09/06/2018 [facility] [place] Diagnosis Active 2018-09-06 08:00:00 2018-10-07 08:55: 00 Joan Hernandez DX: I42.9/ I65.23 DX: I42.9/ I65.23 Active 08/18/2018 [facility] Diagnosis Active 2018-08-18 00:00:00 2018-08-19 13:06:00 Joan Hernandez TOTAL KNEE TOTA L KNEE Active 08/16/2018 [facility] Diagnosis Active 2018-08-16 00:00:00 2018-09-06 05:36:00 Joan Hernandez Combined forms of age-related cataract of both eyes Co mbined forms of age- related cataract of both eyes Disease Active 2018-06-08 00:00:00 Emil Islam LEFT ARM PAIN LEFT ARM PAIN Active 01/18/2014 [facility] Diagnosis Active 2014-01-18 00:00:00 2014-01-18 08:53:00 Joan Hernandez UTI UTI Active 03/18/2013 [facility] Diagnosis Active 2013-03-18 00:00:00 2013-03-18 12:36:00 Michelle emoribrian Hernandez Acute pain due to trauma Problem Active [facility] Contusion of right wrist Problem Active [facility] Pain in right knee Pain in right knee 04/26/2019 [facility] [place] Problem 2019-04-26 11: 48:53 Joan Hernandez Weakness Weak ness 04/26/2019 [facility] [place] Problem 2019-04-26 11:48:53 Dominic Hernandez Difficulty in walking, not elsewhere classified Difficulty in walking, not elsewhere classified 04/26/2019 [facility] [place] Problem 2019-04-26 11:48:53 Toy Hernandez Aftercare following joint replacement surgery Aftercare following joint replacement surgery 04/26/2019 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 right artificial knee joint 04/26/2019 [facility] [place] Problem 2019-04-26 11:48:53 Joan Hernandez Essential (primary) hypertension Essential (primary) hypertension 04/26/2019 [facility] [place] Problem 2019-04-26 11:48:53 Joan garcia Age-related osteoporosis without current pathological fracture Age-related osteoporosis without current pathological fracture 04/26/2019 [facility] [place] Problem 2019-04-26 11: 48:53 Joan Hernandez Occlusion and stenosis of bilateral carotid arteries Occlusion and stenosis of bilateral carotid arteries 03/09/2019 [facility] Problem 2019-03-09 11:10:29 Joan Hernandez Nonrheumatic aortic (valve) insufficiency Nonrheumatic aortic (valve) insufficiency 03/09/2019 [facility] Problem 2019-03-09 11:10:29 Joan Almendarezann Abnormal findings on diagnostic imaging of heart and c oronary circulation Abnormal findings on diagnostic imaging of heart and coronary circulation 03/09/2019 [facility] Problem 2019-03-09 1 1:10:29 Joan David Personal history of other venous thrombosis and emboli sm Personal history of other venous thrombosis and embolism 03/26/2019 [facility] Problem 2019-03-26 13:46:35 Wa moribrian David Achilles tendinitis (disorder) Achilles tendinitis (disorder) Resolved Problem 04/26/2019 [facility] [place] Problem Resolved 2019-04-26 11:48:53 [facility] oribrian Hernandez Deep venous thrombosis (disorder) Deep venous thrombosis (disorder) Resolved Problem 04/26/2019 [facility] [place] Problem Resolved 2019-04-26 11:48:53 [facility] oribrain Hernandez Hyperlipidemia (disorder) Hype rlipidemia (disorder) Resolved Problem 04/26/2019 [facility] [place] Problem Resolved 2019-04-26 11:48:53 [facility] Achilles tendinitis Achi lles tendinitis Resolved Problem 03/20/2013 [facility] Problem Resolved 2013-03-20 21:14: 32 [facility] Arnold Hyperlipidemia Hype rlipidemia Resolved Problem 03/20/2013 [facility] Problem Resolved 2013-03-20 21:14:32 Joan Almendarezann Hypertension Hype rtension Resolved Problem 03/20/2013 [facility] Problem Resolved 2013-03-20 21:14:32 Joan Almendarezann Achilles tendonitis Achi lles tendonitis Active Problem 10/10/2016 [facility] Problem Active 2016-10-10 03:26:00 Joan Almendarezann Pericardial effusion Talita cardial effusion Active Diagnosis 03/04/2016 [facility] Diagnosis Active 2016-03-04 02:08:37 Joan David Vitamin D deficiency Christianne min D deficiency Active Problem 10/10/2016 [facility] Problem Active 2016-10-10 03:26:00 Joan David Essential hypertension Esse ntial hypertension Active Diagnosis 10/10/2016 [facility] Diagnosis Active 2016-10-10 03:26:00 Joan Hernandez Rosacea Nay cea Active Problem 10/10/[address] [facility] Problem Active 2016-10-10 03:26:00 Joan Hernandez Prediabetes Pred iabetes Active Problem 10/10/[address] [facility] Problem Active 2 03:26:00 Joan Hernandez Hx of deep venous thrombosis H x of deep venous thrombosis Active Problem 10/10/[address] [facility] Problem Active 2016-10-10 03:26:00 Joan Hernandez Hyperlipidemia, unspecified Hy perlipidemia, unspecified Active Problem 10/10/[address] [facility] Problem Active 2016-10-10 03:26:00 Memor ial David Osteoarthrosis Oste oarthrosis Active Problem 10/10/[address] [facility] Problem Active 03:26:00 Joan Hernandez Abnormal EKG Abno rmal EKG Active Diagnosis 02/11/[address] [facility] Diagnosis Active 2016-02-11 02:17:28 Joan Hernandez Urinary tract infection Urin sixto tract infection Active Diagnosis 02/08/[address] [facility] Diagnosis Active 2016-02-08 02:16:08 Joan Hernandez Frequent urination Freq uent urination Active Diagnosis 02/08/[address] [facility] Diagnosis Active 2016-02-08 02:16:08 Joan Hernandez RENA positive RENA positive Active Diagnosis 03/04/[address] [facility] Diagnosis Active 2016-03-04 02:08:37 Joan Almendarezann Hypertensive disorder, systemic arterial (disorder) Hypertensive disorder, systemic arterial (disorder) Active Problem 04/26/2019 [facility] [place] Problem Active 2019-04-26 11:48:53 Joan Almendarezann Unilateral primary osteoarthritis, right knee Unilateral primary osteoarthritis, right knee 10/12/2018 04/26/2019 [facility] [place] Problem 2018-10-12 05:44:33 2019-04-26 11:4 8:53 2019-04-26 11:48:53 Joan Almendarezann Cardiomyopathy, unspecified Ca rdiomyopathy, unspecified 08/27/2018 03/09/2019 [facility] Problem 2018-08-27 04:3 8:42 2019-03-09 11:10:29 2019-03-09 11:10:29 Joan garcia Discharge Diagnosis: Wrist sprain Discharge Diagnosis: Wrist sprain 01/18/2014 01/21/2014 [facility] Problem 2 05:00:00 2014-01-21 04:51:37 2014-01-21 04:51:37 Joan Hernandez Allergies, Adverse Reactions, Alerts Allergy Name Allergy Type Status Severity Reaction(s) Onset Date Inacti ve Date Treating Clinician Comments Source Sulfamethoxazole Allergy to substance Active Moderate heart rac es 2020-01-24 00:00:00 [facility] Trimethoprim Allergy to substance Active Moderate heart races 2 00:00:00 [facility] Levofloxacin Allergy to substance Active Moderate achilles tend onitis 2020-01-24 00:00:00 [facility] Codeine Propensity to adverse reactions to drug Active Hives 2017 00:00:00 Emil gilmore Levofloxacin Propensity to adverse reactions to drug Active Other (See Comments) 2017 00:00:00 Severe Tendinitis Lexie Spear shellfish shellfish Active Info Not Available 2016-02-28 00:00:00 Joan Hernandez Iodine Iodine Active Info Not Available 2016-02-28 00:00:00 Joan Hernandez Codeine Sulfate Codeine Sulfate Active Info Not Available 2016-02-28 00:00:00 Joan Hernandez codeine codeine Active [facility] David iodine iodine Active Joan mckenzie Family History Family Member Diagnosis Comments Start Date Stop Date Source Unknown Family Member Family History 2016-03-04 02:08:37 2 02:08:37 Joan Hernandez Social History Social Habit Start Date Stop Date Quantity Comments Source Sex Assigned At Lexie Spear Social History 2018-09-01 19:36:54 2018-09-01 19:36:54 Joan Hernandez Alcohol intake 2018-06-08 00:00:00 2018-06-08 00:00:00 Current non-drinker of alcohol (finding) Emil Spear Occupation: 2016-02-28 00:00:00 2016-02-28 00:00:00 Joan Hernandez Smoking Status Start Date Stop Date Source Never smoker Emil gilmore Medications Ordered Medication Name Filled Medication Name Start Date Stop Da te Current Medication? Ordering Clinician Indication Dosage Frequency Signature (SIG) Comments Components Source Senaa 2018-09-07 03:00:00 No 3 mg, Route: PO, Bedtime, Dosing Weight 65, kg, Start date: 09/06/18 21:00:00 QUAIL FARMER, Duration: 30 day, Stop date: 10/05/18 21:00:00 [facility] Cefazolin 2018-09-06 18:00:00 No 1 gm, Route: IVPB, Drug form: INJ, Q6H, Dosing Weight 65, kg, Start date: 09/06/18 12:00:00 QUAIL FARMER, Duration: 3 doses or times, Stop date: 09/07/18 0:00:00 QUAIL FARMER, ABX Indication: Surgical Prophylaxis [facility] Flumazenil 2018-09-06 16:40:00 No 0.2 mg, Route: IVP, PRN, Dosing Weight 65, kg, PRN Benzodiazepine Reversal, Initial dose, Start date: 09/06/18 10:40:00 QUAIL FARMER, Duration: 30 day, Stop date: 10/06/18 10:39:00 [facility] Fentanyl 2018-09-06 16:40:00 No 50 microgram, Route: IVP, Q5Min, Dosing Weight 65, kg, PRN Pain Score 7-10, Priority: Routine, Start date: 09/06/18 10:40:00 QUAIL FARMER, Duration: 2 doses or times, Stop date: Limited # of times [facility] Oxycodone 2018-09-06 16:40:00 No 5 mg, Route: PO, Drug form: LIQ, Q4H, Dosing Weight 65, kg, PRN Pain Score 7-10, Start date: 09/06/18 10:40:00 QUAIL FARMER, Duration: 30 day, Stop date: 10/06/18 10:39:00 [facility] Dexamethasone 2018-09-06 16:40:00 No 4 mg, Route: IVP, ONCE, Dosing Weight 65, kg, PRN Nausea & Vomiting, Start date: 09/06/18 10:40:00 [facility] Ondansetron 2018-09-06 16:40:00 No 4 mg, Route: IVP, ONCE, Dosing Weight 65, kg, PRN Nausea & Vomiting, Start date: 09/06/18 10:40:00 [facility] Naloxone 2018-09-06 16:40:00 No 0.4 mg, Route: IVP, Q2MIN, Dosing Weight 65, kg, PRN Narcotic Reversal, Start date: 09/06/18 10:40:00 QUAIL FARMER, Duration: 8 doses or times, Stop date: Limited # of times [facility] Albuterol 0.83 MG/ML Inhalant Solution 2018-09-06 16:40:00 No 2.49 mg, Route: NEB, Q20Min, Dosing Weight 65, kg, PRN Wheezing, Priority: STAT, Start date: 09/06/18 10:40:00 QUAIL FARMER, Duration: 30 day, Stop date: 10/06/18 10:39:00 QUAIL FARMER [facility] Enoxaparin 2018-09-06 16:00:00 No 30 mg, Route: SUB-Q, Drug form: INJ, [id number], Dosing Weight 65, kg, Start date: 09/06/18 10:00:00 QUAIL FARMER, Duration: 30 day, Stop date: 10/05/18 22:00:00 [facility] hydrALAZINE ([facility]) 2018-09-06 15:10:00 No Route: IV, Drug form: INJ, ONCE, Stop date: 09/06/18 9:10:00 QUAIL FARMER [facility] enalapril ([facility]) 2018-09-06 15:10:00 No Route: IV, Drug form: INJ, ONCE, Stop date: 09/06/18 9:10:00 QUAIL FARMER [facility] glycopyrrolate ([facility]) 2018-09-06 15:10:00 No Route: IV, Drug form: INJ, ONCE, Stop date: 09/06/18 9:10:00 QUAIL FARMER [facility] neostigmine ([facility]) 2018-09-06 15:10:00 No Route: IV, Drug form: INJ, ONCE, Stop date: 09/06/18 9:10:00 QUAIL FARMER [facility] Acetaminophen 325 MG / Hydrocodone Thu trate 7.5 MG Oral Tablet [Brainard 7.5/325] 2018-09-06 15:01:00 No 2 tab, Route: PO, Drug Form: TAB, Dosing Weight 65, kg, Q4H, PRN Pain Score 7-10, Start date: 09/06/18 9:01:00 QUAIL FARMER, Duration: 30 day, Stop date: 10/06/18 9:00:00 [facility] T[facility]en[facility] 2018-09-06 15:01:00 No 100.4 F, Start date: 09/06/18 9:01:00 QUAIL FARMER, Duration: 30 day, Stop date: 10/06/18 9:00:00 QUAIL FARMER [facility] Lactated Ringers IV 1000 mL 2018-09-06 15:01:00 No 1,000 mL, Rate: 75 ml/hr, Infuse over: 13.3 hr, Route: IV, Dosing Weight 65 kg, Total Volume: 1,000, Start date: 09/06/18 9:01:00 QUAIL FARMER, Duration: 30 day, Stop date: 10/06/18 9:00:00 QUAIL FARMER, 1.73, m2 [facility] metoprolol ([facility]) 2018-09-06 14:41:00 No Route: IV, Drug form: INJ, ONCE, Stop date: 09/06/18 8:41:00 QUAIL FARMER [facility] dexamethasone ([facility]) 2018-09-06 14:31:00 No Route: IV, Drug form: INJ, ONCE, Stop date: 09/06/18 8:31:00 QUAIL FARMER [facility] rocuronium ([facility]) 2018-09-06 14:31:00 No Route: IV, Drug form: INJ, ONCE, Stop date: 09/06/18 8:31:00 QUAIL FARMER [facility] lidocaine ([facility]) 2018-09-06 14:31:00 No Route: IV, Drug form: INJ, ONCE, Stop date: 09/06/18 8:31:00 QUAIL FARMER [facility] metoclopramide ([facility]) 2018-09-06 14:26:00 No Route: IV, Drug form: INJ, ONCE, Stop date: 09/06/18 8:26:00 QUAIL FARMER [facility] ondansetron ([facility]) 2018-09-06 14:26:00 No Route: IV, Drug form: INJ, ONCE, Stop date: 09/06/18 8:26:00 QUAIL FARMER [facility] ceFAZolin ([facility]) 2018-09-06 14:16:00 No Route: IV, Drug form: INJ, ONCE, Stop date: 09/06/18 8:16:00 QUAIL FARMER Wa elin Hernandez propofol ([facility]ES) 2018-09-06 14:11:00 No Route: IV, Drug form: INJ, ONCE, Stop date: 09/06/18 8:11:00 QUAIL FARMER Wa elin Hernandez fentaNYL ([facility]ES) 2018-09-06 14:11:00 No Route: IV, Drug form: INJ, ONCE, Stop date: 09/06/18 8:11:00 QUAIL FARMER Wa elin Hernandez midazolam (ANES) 2018-09-06 14:11:00 No Route: IV, Drug form: SOLN, ONCE, Stop date: 09/06/18 8:11:00 QUAIL FARMER Wa elin Hernandez Lactated Ringers Injection IV ([facility]) 1000 mL 2018-09-06 13:38:00 No Route: IV, Total Volume: 1,000, Start date: 09/06/18 7:38:00 QUAIL FARMER, Stop date: 09/06/18 8:38:00 QUAIL FARMER [facility] tramadol hydrochloride 50 MG Oral Tablet [Ultram] 2018-09-06 12:44:00 No 50 mg = 1 tab, PO, Q12H, PRN for pain, X 30 day , # 60 tab, 0 Refill(s) [facility] David Lactated Ringers IV 1,000 mL 2018-09-06 12:31:00 No 1,000 mL, Rate: 40 ml/hr, Infuse over: 25 hr, Route: IV, Dosing Weight 65 kg, Total Volume: 1,000, Start date: 09/06/18 6:31:00 QUAIL FARMER, Duration: 1 day, Stop date: 09/07/18 6:30:00 QUAIL FARMER, 1.73, m2 [facility] ropivacaine 2018-09-06 12:00:00 No 100 mL, Route: InFILtration(local), Drug Form: INJ, Dosing Weight 65, kg, ONCALL, Start date: 09/06/18 6:00:00 QUAIL FARMER, Duration: 30 day, Stop date: 10/06/18 5:59:00 QUAIL FARMER [facility] gabapentin 2018-09-06 12:00:00 No 300 mg, Route: PO, ONCALL, Dosing Weight 65, kg, Start date: 09/06/18 6:00:00 QUAIL FARMER, Duration: 30 day, Stop date: 10/06/18 5:59:00 QUAIL FARMER [facility] celecoxib 2018-09-06 12:00:00 No 90 mL/min), Start date: 09/06/18 6:00:00 QUAIL FARMER, Duration: 30 day, Stop date: 10/06/18 5:59:00 QUAIL FARMER [facility] 0.3 ML Enoxaparin sodium 100 MG/ML Prefilled Syringe [Loveno x] 2018-09-06 11:42:00 No 30 mg, SUB -Q, BID, Complete all the injections, X 14 day, # 28 inj, 0 Refill(s) [facility] Cephalexin 500 MG Oral Capsule [Keflex] 2018-09-06 11:42:00 No 500 mg = 1 cap, PO, QID, X 10 day, # 40 cap, 0 Refill(s) [facility] ropivacaine 2018-09-06 11:00:00 No Notes: NOT FOR IV use Ropivacaine 5 mg/mL (49.25 mL) Epinephrine 1 mg/mL (0.5 mL) Clonidine 0.1 mg/mL (0.8 mL) Ketorolac 30 mg/mL (1 mL) Normal Saline 48.45 mL [facility] Losartan 2018-09-01 20:16:00 Yes PO, Daily, 0 Refill(s) [facility] Vitamin D2 50,000 intl units oral capsule 2018-09-01 20:16:00 Yes 50,000 IntlUnit = 1 cap, PO, QWed, 0 Refill(s) [facility] Folic Acid 2018-09-01 20:15:00 Yes Daily, 0 Refill(s) [facility] Vitamin B12 2018-09-01 20:15:00 Yes 0 Refill (s) [facility] Centrum Adults oral tablet 2018-09-01 20:15:00 Yes PO, Daily, 0 Refill(s) [facility] Lisinopril 2016-10-10 03:26:00 Yes Anita Bynum Carlos 1 tablet [facility] Pravastatin Sodium 2016-08-28 03:20:21 Yes Joyce Patricia 1 tablet [facility] Zyrtec Allergy 2016-03-04 02:08:37 Yes Joyce Patricia 1 tablet [facility] Bactrim DS 2016-02-06 00:00:00 Yes Joyce Patricia 1 tablet Joan David Naproxen Sodium 2014-02-01 00:00:00 Yes Joyce Patricia 1 tablet Joan David tramadol hydrochloride 50 MG Oral Tablet [Ultram] 2014-01-18 13:40:00 Yes 50 mg = 1 tab, PO, Q4H, pain, # 20 tab, 0 Refil l(s) Joan David naproxen 500 mg oral tablet 2014-01-18 13:39:00 Yes 500 mg = 1 tab, PO, BID, Pain, # 30 tab, 0 Refill(s) Mem oribrian David lisinopril 20 mg oral tablet 2014-01-18 12:04:00 Yes 20 mg = 1 tab, PO, Daily, # 30 tab, 0 Refill(s) Toyoria jacky Hernandez pravastatin 40 mg oral tablet 2014-01-18 12:04:00 Yes 40 mg = 1 tab, PO, Bedtime, # 30 tab, 0 Refill(s) Dominic Hernandez Macrobid 100 mg oral capsule 2013-03-18 17:36:07 Yes See Plunkett 100 mg, 1 cap, PO, BID, 20 cap, Substitu tion Allowed, CAP [facility] Vital Signs Vital Name Observation Time Observation Value Comments Source Weight 2020-01-24 09:51:00 152 [lb_av] [facility] BMI (Body Mass Index) 2020-01-24 09:51:00 26.1 kg/m2 [facility] Systolic (mm Hg) 2018-09-06 20:00:00 Dominic rial Arnold Diastolic (mm Hg) 2018-09-06 20:00:00 Mem orial David Systolic (mm Hg) 2018-09-06 19:00:00 Dominic rial Arnold Diastolic (mm Hg) 2018-09-06 19:00:00 Mem orial Arnold Systolic (mm Hg) 2018-09-06 18:30:00 Dominic rial Arnold Diastolic (mm Hg) 2018-09-06 18:30:00 Mem orial David Respitory Rate 2018-09-06 16:00:00 Memori al David Respitory Rate 2018-09-06 15:45:00 Memori al David Respitory Rate 2018-09-06 15:30:00 Memori al Arnold Heart Rate 2018-09-01 19:30:00 [facility] Temperature Oral (F) 2018-09-01 19:30:00 97.9 F [facility] Weight 2018-09-01 19:28:00 [facility] Height 2018-09-01 19:28:00 162.56 cm [facility] BMI Calculated 2018-09-01 19:28:00 Memori al Arnold Height 2018-08-19 19:17:00 162.56 cm [facility] BMI Calculated 2018-08-19 19:17:00 Memori al Arnold Weight 2018-08-19 19:17:00 [facility] Weight 2016-02-28 14:30:00 [facility] Height 2016-02-28 14:30:00 [facility] Heart Rate 2016-02-28 14:30:00 [facility] Diastolic (mm Hg) 2016-02-28 14:30:00 Mem orial Arnold Systolic (mm Hg) 2016-02-28 14:30:00 Dominic rial David Weight 2016-02-06 15:45:00 [facility] Height 2016-02-06 15:45:00 [facility] Temperature Oral (F) 2016-02-06 15:45:00 97.8 F [facility] Heart Rate 2016-02-06 15:45:00 [facility] Diastolic (mm Hg) 2016-02-06 15:45:00 Mem orial Arnold Systolic (mm Hg) 2016-02-06 15:45:00 Dominic rial Arnold Systolic (mm Hg) 2014-01-18 13:55:00 Dominic rial Arnold Respitory Rate 2014-01-18 13:55:00 Memori al Arnold Heart Rate 2014-01-18 13:55:00 [facility] Diastolic (mm Hg) 2014-01-18 13:55:00 Mem orial Arnold BMI Calculated 2014-01-18 11:36:00 Memori al Arnold Weight 2014-01-18 11:36:00 [facility] Height 2014-01-18 11:36:00 162.56 cm [facility] Respitory Rate 2014-01-18 11:36:00 Memori al Arnold Heart Rate 2014-01-18 11:36:00 [facility] Systolic (mm Hg) 2014-01-18 11:36:00 Dominic rial Arnold Diastolic (mm Hg) 2014-01-18 11:36:00 Mem orial David Temperature Oral (F) 2014-01-18 11:36:00 98.3 F [facility] Weight 2013-03-18 16:20:00 [facility] Height 2013-03-18 16:20:00 162.56 cm [facility] Procedures Procedure Date / Time Performed Performing Clinician Cosme e Hysterectomy 1971-08-30 00:00:00 [facility] Tonsillectomy and adenoidectomy 1949-08-30 00:00:00 [facility] Cholecystectomy [facility] Operation [facility] Plan of Care Planned Activity Planned Date Details Comments Source Future Scheduled Test 2020-05-30 00:00:00 INFLUENZA VACCINE [code = INFLUENZA VACCINE] [facility] Future Scheduled Test 2005 00:00:00 65+ PNEUMOCOCCAL V ACCINE (1 of 2 - PCV13) [code = 65+ PNEUMOCOCCAL VACCINE (1 of 2 - PCV13)] [facility] Future Scheduled Test 1990 00:00:00 SHINGLES VACCINES (#1) [code = SHINGLES VACCINES (#1)] [facility] Instructions Sprains - Wrist [facility] Encounters Start Date/Time End Date/Time Encounter Type Admission Type Attendi [facility] Facility Care Department Encounter ID Source 2020-01-24 09:41:00 2020-01-24 09:41:00 Registered Emergency Room 1 BRE LUCAS [facility] [id number] CH I [facility] 2019-01-29 13:05:00 2019-01-29 13:48:00 Departed Emergency Room [facility] [id number] [facility] 2018-11-07 09:00:00 2018-12-06 23:59:00 Outpatient Jerel Whiteside [id number] 2018-10-07 08:53:00 2018-11-06 23:59:00 Outpatient Jerel Whiteside [id number] 2018-09-07 09:51:00 2018-10-06 23:59:00 Outpatient Jerel Whiteside francemiriam Tripp [id number] 2018-09-07 09:51:00 2018-10-06 23:59:00 Outpatient Jerel Whiteside francemiriam Van [id number] 2018-09-06 05:36:00 2018-09-06 16:00:00 Outpatient StevoRaz Qasim [facility] [id number] 2018-08-19 12:58:00 2018-08-19 23:59:00 Outpatient Matti Medina [facility] [id number] 2018-05-07 07:04:00 2018-05-07 08:00:00 Departed Emergency Room [facility] [id number] [facility] 2017-12-10 21:31:00 2017-12-10 22:10:00 Departed Emergency Room [facility] [id number] [facility] 2016-10-09 14:38:00 2016-10-09 14:38:00 Outpatient [facility] [id number] eClinicalWorks 2016-08-27 17:15:00 2016-08-27 17:15:00 Outpatient [facility] [id number] eClinicalWorks 2016-08-27 17:13:00 2016-08-27 17:13:00 [facility] [id number] eClinicalWorks 2016-02-28 09:30:00 2016-02-28 09:30:00 Outpatient [facility] [id number] eClinicalWorks 2016-02-07 16:53:00 2016-02-07 16:53:[address] [facility] [id number] eClinicalWorks 2016-02-07 13:00:00 2016-02-07 13:00:00 Outpatient [facility] [id number] eClinicalWorks 2016-02-06 10:45:00 2016-02-06 10:45:[address] [facility] [id number] eClinicalWorks 2014-01-18 06:35:00 2014-01-18 09:12:00 Outpatient Tyrel Roth [id number] Results Test Description Test Time Test Comments Results Result Comments Source RIBS UNILAT W/CXR- HOPD 2020-05-06 14:34:00 [place] [address] Patient Name: ROBERTO NIETO MR #: [id number] : 1940 Age/Sex: 79/F Req #: [id number] Adm Physician: Ordered by: IGLDA GUZMAN MD Report #: [id number] Location: [facility] Room/Bed: Procedure: [id number] HOPD/RIBS UNILAT W/CXR- HOPD Exam Date: 05/06/20 Exam Time: 1420 REPORT STATUS: Signed EXAMINATION: RIBS UNILAT W/CXR- HOPD INDICATION: Fall onto right ribs. COMPARISON: None FINDINGS: TUBES and LINES: None. LUNGS: Normal lung volumes. Lungs are clear. No consolidations. PLEURA: No pleural effusion or pneumothorax. HEART AND MEDIASTINUM: The cardiomediastinal silhouette is unremarkable. BONES AND SOFT TISSUES: No acute osseous lesion. Soft tissues are unremarkable. UPPER ABDOMEN: No free air under the diaphragm. IMPRESSION: 1. No displaced rib fracture. 2. No focal consolidation, pleural effusion or pneumothorax. Signed by: Derick Garces MD on 05/06/2020 2:36 PM Dictated By: DERICK GARCES MD 143 Transcribed By: NIRAJ on 05/06/20 143 COPY TO: GILDA GUZMAN MD FOREARM 2 VIEW RT - HOPD 2020-01-24 10:23:00 [place] [address] Patient Name: ROBERTO NIETO MR #: [id number] : 1940 Age/Sex: 79/F Req #: [id number] Adm Physician: Ordered by: BRE LUCAS MD Report #: [id number] Location: [facility] Room/Bed: Procedure: [id number] HOPD/FOREARM 2 VIEW RT - HOPD Exam Date: 01/24/20 Exam Time: 1014 REPORT STATUS: Signed EXAMINATION: FOREARM 2 VIEW RT - HOPD INDICATION: Forearm pain COMPARISON: None FINDINGS: No acute fracture or dislocation. Alignment is anatomic. Mild scattered degenerative changes. Soft tissues appear unremarkable. Calcium pyrophosphate deposition of the triangular fibrocartilage of the wrist, better detailed on dedicated wrist radiographs. IMPRESSION: No acute osseous injury. Signed by: Mattie Black MD on 01/24/2020 10:24 AM Dictated By: MATTIE BLACK MD 1024 Transcribed By: NIRAJ on 01/24/20 1024 COPY TO: BRE LUCAS MD WRIST 3VW RT - HOPD 2020-01-24 10:16:00 [facility] [address] [place] [address] Patient Name: ROBERTO NIETO MR #: [id number] : 1940 Age/Sex: 79/F Req #: [id number] Adm Physician: Ordered by: BRE LUCAS MD Report #: [id number] Location: [facility] Room/Bed: Procedure: [id number] HOPD/WRIST 3VW RT - HOPD Exam Date: 01/24/20 Exam Time: 1010 REPORT STATUS: Signed EXAMINATION: WRIST 3VW RT - HOPD INDICATION: Wrist pain COMPARISON: None FINDINGS: No acute fracture or dislocation. Alignment appears anatomic. Mild scattered degenerative changes. Calcium pyrophosphate deposition associated with the triangular fibrocartilage. Soft tissues appear unremarkable. IMPRESSION: No acute osseous injury. Signed by: Mattie Black MD on 01/24/2020 10:17 AM Dictated By: MATTIE BLACK MD 1017 Transcribed By: NIRAJ on 01/24/20 1017 COPY TO: BRE LUCAS MD HEMATOLOGY 2018-09-06 15:58:00 [facility]3 [facility] 2018-09-06 15:58:00 0.2 [facility] 2018-09-06 15:58:00 2.8 [facility] 2018-09-06 15:58:00 10.0 [facility] 2018-09-06 15:58:00 86.6 [facility] 2018-09-06 15:58:00 0.4 [facility]AT[facility] 2018-09-06 15:58:00 1.2 [facility]EMAT[facility] 2018-09-06 15:58:00 10.4 [facility] HEMAT[facility] 2018-09-06 15:58:00 7.4 [facility] HEMAT[facility] 2018-09-06 15:58:00 280 [facility]AT[facility] 2018-09-06 15:58:00 13.4 [facility]EMAT[facility] 2018-09-06 15:58:00 33.7 [facility] HEMAT[facility] 2018-09-06 15:58:00 12.0 [facility]AT[facility] 2018-09-06 15:58:00 13.7 [facility]AT[facility] 2018-09-06 15:58:00 4.39 [facility] 2018-09-06 15:58:00 40.8 [facility]AT[facility] 2018-09-06 15:58:00 Test Item MCH (test code = MCH) 31.3 pg 27.0-31.0 [facility] WxexorwKPZTWUWFUJ0350-88-54 15:58:0093.0[facility] MWNORAQ0598-90-17 20:31:00Negative (09/01/18 2:31 PM)[facility] PJVNIKJ2408-78-47 20:07:00Product available (09/01/18 2:07 PM)[facility] EJHVYHYAEP0648-46-79 16:35:01Occasional /HPF *NA*(03/18/2013 11:35:01) [facility] KtplpegWYXDMBWUON8749-67-94 16:35:01Negative (03/18/2013 11:35:01) [facility] KziposbSSKTANLNDH8763-48-15 16:35:01Small *ABN*(03/18/2013 11:35:01) [facility] QombzrgQVWAILCZFQ8098-21-72 16:35:01Negative *NA*(03/18/2013 11:35:01) [facility] VlzuwvaVUJDXYGZTH7256-33-48 16:35:01Occasional /LPF *NA*(03/18/2013 11:35:01) [facility] EpacjzwDSUYJMFDTZ7602-15-48 16:35:01Negative (03/18/2013 11:35:01) [facility] JvqkwkvJKFOYYGSBL4014-58-90 16:35:01<1[facility] 2013-03-18 16:35:01<1[facility] UjtaadnPZSOPNSBIX9247-12-07 16:35:01Negative mg/dL *NA*(03/18/2013 11:35:01) [facility] NiahiucMCKYVNGBWJ4355-85-78 16:35:01Negative mg/dL *NA*(03/18/2013 11:35:01) [facility] OjforysQIGUEGOBQD8089-85-10 16:35:01 Negative mg/dL (03/18/2013 11:35:01) [facility] VizjbsvZBVXSJMBGB4753-43-15 16:35:015.0[facility] VpkireaEEIHLQZFFO6304-43-42 16:35:011.008[facility] HLEEYICPGD9501-47-81 16:35:01Clear (03/18/2013 11:35:01) [facility]
== END 2020-05-06 15:04 | disposition home or self-care (01) ==
LOC: FSED 14:00
DX: S20.211A Contusion of right front wall of thorax, initial encounter (principal); W18.31XA Fall on same level due to stepping on an object, initial encounter; Y92.008 Other place in unspecified non-institutional (private) residence as the place of occurrence of the external cause; I10 Essential (primary) hypertension
CPT/HCPCS: 71101; 99283

== ENCOUNTER 2020-06-24 13:43 | Emergency (ER) | payer MEDICARE ==
[~2020-06-24] VITALS: Ht 162.6 cm; Wt 65.8 kg
[~2020-06-24 13:43] MED LIST: ULTRAM50 MG PO
[2020-06-24] MEDS ORDERED: NITROFURANTOIN100 MG PO (14:19)
--- NOTE | 2020-06-24 15:56 | Emergency Department Note ---
History of Present Illnes History of Present Illness Chief Complaint: Genitourinary History of Present Illness This is a 79 year old female dysuria. No fever/chills. No diarrhea, but loose stools (not unusual for her). No vag D/C. No N/V. No flank or back pain. No hematuria. Prior episode resolved with nitrofurantoin. Historian: Patient Arrival Mode: Car Tutorial Laboratory Supervisor Required: No Onset (how long ago): day(s) Location: bladder Quality: burning Radiation: Reports non-radiation Severity: mild Onset quality: gradual Duration (how long): day(s) Timing of current episode: intermittent Progression: unable to specify Chronicity: new (Similar to prior UTIs, last about one year ago.) Context: Denies recent illness, Denies trauma/injury Relieving factors: none Exacerbating factors: other (urinating) Associated symptoms: Denies cough, Denies fever/chills, Denies nausea/vomiting, Denies rash Past Medical/Family History Physician Review I have reviewed the patient's past medical and family history. Any updates have been documented here. Past Medical History Recent Fever: No Clinical Suspicion of Infectio: No New/Unexplained Change in Ment: No Past Medical History: Hypertension Other Medical History: pt reports her BP goes up and down on it's own w/o meds Past Surgical History: Cholecysctectomy, Hysterectomy, T&A, Lumpectomy Other Surgery: partial R breast removal open laporotomy w 8 lb tumor removal achiles tendon repair tonsilectomy adenoidectomy r foot tumor removal Social History Counseling Performed: No Alcohol Use: None Any Illegal Drug Use: No Other Last Tetanus: UNK Any Pre-Existing Lines (PICC,: No Review of Systems Review of Systems Constitutional: Reports malaise; Denies chills, Denies fever EENTM: Denies nose congestion, Denies throat pain, Denies throat swelling Cardiovascular: Denies chest pain Respiratory: Denies chest congestion, Denies cough, Denies pain with cough Gastrointestinal: Denies diarrhea, Denies nausea, Denies vomiting Genitourinary: Reports as per HPI, Reports dysuria; Denies hematuria Musculoskeletal: Denies joint swelling Integumentary: Denies lumps Neurological: Reports headache (mild, global) Hematological/Lymphatic: Denies easy bleeding Physical Exam Related Data Allergies: Coded Allergies: iodine (Verified Allergy, Severe, anaphylaxis, 01/24/20) levofloxacin (Verified Allergy, Intermediate, achilles tendonitis, 01/24/20) sulfamethoxazole (Verified Allergy, Intermediate, heart races, 01/24/20) trimethoprim (Verified Allergy, Intermediate, heart races, 01/24/20) codeine (Verified Allergy, Unknown, 01/24/20) Triage Vital Signs Vital Signs Date Time Temp Pulse Resp B/P (MAP) Pulse Ox O2 Delivery O2 Flow Rate FiO2 06/24/20 13:49 98.5 104 16 186/104 97 Room Air Physical Exam CONSTITUTIONAL Constitutional: Present well-developed, Present well-nourished HENT HENT: Present normocephalic, Present atraumatic, Present oropharynx clear/moist, Present nose normal HENT L/R: Present left ext ear normal, Present right ext ear normal EYES Eyes: Reports PERRL, Reports conjunctivae normal NECK Neck: Present ROM normal PULMONARY CARDIOVASCULAR Cardiovascular: Present regular rhythm, Present heart sounds normal, Present capillary refill normal, Present normal rate GASTROINTESTINAL Abdominal: Present soft, Present nontender, Present bowel sounds normal; Absent tender, Absent guarding, Absent mass, Absent rebound, Absent left CVA tenderness, Absent right CVA tenderness GENITOURINARY SKIN Skin: Present warm, Present dry MUSCULOSKELETAL Musculoskeletal: Present ROM normal NEUROLOGICAL Neurological: Present alert, Present oriented x 3, Present no gross motor or sensory deficits PSYCHOLOGICAL Psychological: Present mood/affect normal, Present judgement normal Results Laboratory Lab results reviewed: Yes Laboratory comments UA: randall small, nit neg, blood small, pro neg, glu/bili/ketones neg Assessment & Plan Medical Decision Making MDM Differential dx of this patient who has burning pain in suprapubic area only wit h urination includes UTI, Pylo, Kidney Stone, rash, Pelvic infection. Gave strict return precautions and patient instructed to F/U for repeat UA. Assessment & Plan Final Impression: (1) UTI (urinary tract infection) (2) Hypertension Depart Disposition: HOME, SELF-CARE Last Vital Signs Date Time Temp Pulse Resp B/P (MAP) Pulse Ox O2 Delivery O2 Flow Rate FiO2 06/24/20 13:49 98.5 104 16 186/104 97 Room Air Home Meds Active Scripts Nitrofurantoin Macrocrystal (NITROFURANTOIN) 100 Mg Capsule, 100 MG PO BID for infection for 7 Days, #14 Prov:CHANELLE BROOKS MD 06/24/20 Tramadol Hcl (ULTRAM) 50 Mg Tablet, 1-2 TAB PO Q6H PRN for pain, #20 TAB 0 Refills DO [address] take and drive or operate machinery Prov:GILDA GUZMAN MD 05/06/20 CHANELLE BROOKS MD Jun 24, 2020 15:49
== END 2020-06-24 15:47 | disposition home or self-care (01) ==
LOC: FSED 14:07
DX: R30.0 Dysuria (principal); N39.0 Urinary tract infection, site not specified; I10 Essential (primary) hypertension
CPT/HCPCS: 81003; 99283

== ENCOUNTER 2024-10-20 09:43 | Emergency (ER) | payer MEDICARE ==
[~2024-10-20 09:43] MED LIST changes: +NITROFURANTOIN100 MG PO
[2024-10-20 09:50] VITALS: PULSE 61; RESP 20; TEMP 96.8; O2SAT 95
[2024-10-20] MEDS ORDERED: TYLENOL325 MG PO (10:13)
[2024-10-20] MEDS ORDERED: IBUPROFEN600 MG PO (10:13)
[2024-10-20] MEDS: KETOROLAC TROMETHAMINE 30 MG/ML VIAL IM ONE (11:15)
[2024-10-20] MEDS: ACETAMINOPHEN 325 MG TAB PO ONE (11:15)
[2024-10-20] MEDS ORDERED: PREDNISONE20 MG PO (11:17)
== END 2024-10-20 11:22 | disposition home or self-care (01) ==
LOC: FSED 09:49
DX: M54.2 Cervicalgia (principal); M54.12 Radiculopathy, cervical region; X50.0XXA Overexertion from strenuous movement or load, initial encounter; Y92.89 Other specified places as the place of occurrence of the external cause; I10 Essential (primary) hypertension
CPT/HCPCS: 72125; 99284; J1885

== ENCOUNTER 2025-06-03 10:00 | Emergency (ER) | payer MEDICARE ==
[~2025-06-03] VITALS: Ht 162.6 cm; Wt 66.8 kg
[~2025-06-03 10:00] MED LIST changes: +IBUPROFEN600 MG PO; +PREDNISONE20 MG PO; +TYLENOL325 MG PO
[2025-06-03] MEDS: ACETAMINOPHEN 325 MG TAB PO ONE (12:10)
[2025-06-03] MEDS ORDERED: KEFLEX125 MG/5 M PO (12:48)
[2025-06-03 12:55] VITALS: PULSE 64; RESP 17; TEMP 97.4; O2SAT 98
== END 2025-06-03 12:55 | disposition home or self-care (01) ==
LOC: FSED 10:53
DX: R30.0 Dysuria (principal); N30.90 Cystitis, unspecified without hematuria; R10.24 Suprapubic pain; I10 Essential (primary) hypertension
CPT/HCPCS: 81003; 99284